=== PATIENT | female | born 1950 | race African-American/Black ===

== ENCOUNTER 2016-11-10 15:19 | Inpatient (IN) | payer MEDICARE, OTHER ==
[~2016-11-10] VITALS: Ht 167.6 cm; Wt 77.6 kg
[~2016-11-10 15:19] MED LIST: AMIO200T PO; ASPI-482 PO; DOCU-27 PO; ESCI20TA10 PO; HYDR25TA9 PO; LEVO50TA5 PO; METO25TA9 PO; SIMV20TA3 PO; WARF2TAB7 PO
[2016-11-10] MEDS ORDERED: DIPHTH,PERTUSS(ACELL),TET TOX 0.5 ML DISP.SYRIN. VAX IM ONE (16:00)
[2016-11-10 16:13] LABS: BASO % 1 % (0-3); EOS % 2 % (0-3); HEMATOCRIT 34.7 % (36.0-47.0); HEMOGLOBIN 11.3 g/dL (12.0-15.5); LYMPH # 1.7 x10^3/uL (1.0-4.8); LYMPH % 46 % (24-48); MEAN CORPUSCULAR HEMOGLOBIN 32 pg (25-35); MEAN CORPUSCULAR HGB CONC 33 g/dL (31-37); MEAN CORPUSCULAR VOLUME 98 fL (79-100); MONO % 12 % (0-9); NEUT % 39 % (31-73); PLATELET COUNT 146 x10^3/uL (140-400); RED BLOOD COUNT 3.56 x10^6/uL (3.50-5.40); WHITE BLOOD COUNT 3.6 x10^3/uL (4.0-11.0)
[2016-11-10 16:22] LABS: INR 2.5 (0.8-1.1); PROTHROMBIN TIME PATIENT 25.2 SEC (11.7-14.0)
--- NOTE | 2016-11-10 16:34 | RAD ---
Clinical Indication: Fall, hitting head on concrete. Headache Technique: Study is dated November 10, 2016. CT images of the head were obtained from the skull base to the vertex without IV contrast. Comparison is from April 27, 2016. One or more of the following individualized dose reduction techniques were utilized for this examination: 1. Automated exposure control 2. Adjustment of the mA and/or kV according to patient size 3. Use of iterative reconstruction technique Findings: There is diffuse, symmetric prominence of the ventricles and subarachnoid spaces consistent with age-related parenchymal volume loss. There are areas of scattered decreased attenuation in the supratentorial white matter. While nonspecific, findings are likely secondary to small vessel ischemic disease. There is no hemorrhage, extraaxial fluid collection, mass, or midline shift. There is no large vascular distribution infarct. The posterior fossa and brain stem are unremarkable. Orbits are normal. The visualized paranasal sinuses are clear. There is no skull fracture appreciated on bone level images. Impression: No acute intracranial findings. Brain parenchymal volume loss and probable small vessel ischemic disease.
[2016-11-10 16:42] LABS: CALCIUM 8.4 mg/dL (8.5-10.1); CREATININE 1.9 mg/dL (0.6-1.0); GFR 26.6; POTASSIUM 4.2 mmol/L (3.5-5.1)
[2016-11-10 16:48] LABS: ALBUMIN 3.3 g/dL (3.4-5.0); ALBUMIN/GLOBULIN RATIO 0.8 (1.0-1.7); TOTAL BILIRUBIN 0.4 mg/dL (0.2-1.0); TOTAL PROTEIN 7.3 g/dL (6.4-8.2)
--- NOTE | 2016-11-10 16:52 | RAD ---
Indication: Pain after fall today. Abrasion. Technique: 3 views of the left knee are submitted for review. No comparison is available. Findings: There is no fracture or dislocation. There is no soft tissue swelling. There is mild to moderate narrowing of the medial compartment with spurring. There are vascular calcifications. Impression: 1. Negative for fracture. 2. Medial compartment osteoarthritis.
[2016-11-10 17:00] LABS: BILIRUBIN,URINE NEGATIVE (NEG); GLUCOSE,URINE NEGATIVE (NEG); NITRITE,URINE NEGATIVE (NEG); PH,URINE 5.5; PROTEIN,URINE NEGATIVE (NEG-TRACE)
[2016-11-10 17:13] LABS: RBC,URINE 0 /HPF (0-2)
[2016-11-10 17:14] LABS: BACTERIA,URINE FEW /HPF (0-FEW); SQUAMOUS EPITHELIAL CELL,UR FEW /LPF; WBC,URINE OCC /HPF (0-4)
[2016-11-10] MEDS ORDERED: IV NORMAL SALINE 1000ML BAG 1,000 ML IV ONE (19:00)
[2016-11-10] MEDS ORDERED: ACETAMINOPHEN 500 MG TABLET PO ONE (19:00)
--- NOTE | 2016-11-10 19:21 | PHYS DOC ---
Past Medical History Past Medical History: Arrhythmia, CAD, High Cholesterol, Hypertension, Hypothyroid, Hepatitis, Renal Failure, Other Additional Past Medical Histor: mitral valve prolapse,code blue in this ED, LIVER PROBLEM Past Surgical History: Coronary Bypass Surgery, Other Additional Past Surgical Histo: mitral valve replacement, left foot, thyroid surgery Alcohol Use: None Drug Use: None Adult General Chief Complaint Chief Complaint: LACERATION/AVULSION HPI HPI Patient is a 66 year old female who comes to the ED after a dizzy spell and a fall. Patient states she was leaving a [employer] restaurant with family when she had a dizzy spell and fell, she does not believe that she passed out, she did hit her head and also skinned her left knee. Patient does take a blood thinner. She states that she hit her head on the cement and also skinned her knee on the cement. She has chronic pain in that left knee and has had an injection in a before, it doesn't seem much worse than usual to her. Patient says she has had some dizziness off and on for about a week maybe. She has not had any new medications. She has not felt bad otherwise, no GI symptoms, no fever, no cough or chest pain. Last tetanus is unknown Review of Systems Review of Systems Constitutional: Denies fever or chills [] Eyes: She was seen by the eye doctor recently for a problem with her right eye, not sure what it was but something to do with blood and her retina HENT: Denies nasal congestion or sore throat [] Respiratory: Denies cough or shortness of breath [] Cardiovascular: Denies chest pain GI: Denies abdominal pain, nausea, vomiting, bloody stools or diarrhea [] : Denies dysuria or hematuria [] Musculoskeletal: Denies back pain or joint pain [] Integument: Denies rash or skin lesions [] Neurologic: Denies headache, focal weakness or sensory changes [] Current Medications Current Medications Current Medications Medications (Trade) Dose Ordered Sig/Johnnie Start Time Stop Time Status Last Admin Dose Admin Acetaminophen 1000 mg 1,000 mg 1X ONCE 11/10/16 19:00 11/10/16 19:01 DC 11/10/16 19:00 1,000 MG Diphtheria/ Tetanus/Acell Pertussis (Boostrix) 0.5 ml ONCE ONCE 11/10/16 16:00 11/10/16 16:01 DC 11/10/16 16:52 0.5 ML Sodium Chloride (Iv Sodium Chloride 0.9% 1000ml Bag) 1,000 ml @ 100 mls/hr 1X ONCE 11/10/16 19:00 11/11/16 04:59 11/10/16 20:28 100 MLS/HR Allergies Allergies Allergies Coded Allergies Type Severity Reaction Last Updated Verified codeine Allergy Intermediate rash 10/17/14 No iodine Allergy Intermediate Hives, Itching 10/17/14 No Physical Exam Physical Exam Constitutional: Well developed, well nourished, no acute distress, non-toxic appearance. Alert, mentating normally. HENT: Normocephalic, bilateral external ears normal, oropharynx moist, no oral exudates, nose normal. Left forehead small hematoma with a small linear abrasion overlying it. Head and face otherwise without trauma Eyes: conjunctiva normal, no discharge. [] Neck: Normal range of motion, no stridor. [] Cardiovascular:Heart rate regular rhythm, no murmur [] Lungs & Thorax: Bilateral breath sounds clear to auscultation [] Abdomen: Bowel sounds normal, soft, no tenderness, no masses, no pulsatile masses. [] Skin: Warm, dry, no erythema, no rash. [] Extremities: No tenderness, no cyanosis, no clubbing, ROM intact, no edema. Left knee has a 1 cm abrasion just below the patella with a flap of skin avulsed , no laceration, it is superficial. No bony tenderness. No knee effusion. Neurologic: Alert and oriented X 3, normal motor function, normal sensory function, no focal deficits noted. [] Current Patient Data Vital Signs Vital Signs Date Time Temp Pulse Resp B/P Pulse Ox O2 Delivery O2 Flow Rate FiO2 11/10/16 19:01 22 22 155/73 92 Nasal Cannula 3 11/10/16 15:26 97.4 97.4 Lab Values Laboratory Tests Test 11/10/16 16:00 11/10/16 16:45 White Blood Count 3.6x10^3/uL (4.0-11.0) L Red Blood Count 3.56x10^6/uL (3.50-5.40) Hemoglobin 11.3g/dL (12.0-15.5) L Hematocrit 34.7% (36.0-47.0) L Mean Corpuscular Volume 98fL (79-100) Mean Corpuscular Hemoglobin 32pg (25-35) Mean Corpuscular Hemoglobin Concent 33g/dL (31-37) Red Cell Distribution Width 15.0% (11.5-14.5) H Platelet Count 146x10^3/uL (140-400) Neutrophils (%) (Auto) 39% (31-73) Lymphocytes (%) (Auto) 46% (24-48) Monocytes (%) (Auto) 12% (0-9) H Eosinophils (%) (Auto) 2% (0-3) Basophils (%) (Auto) 1% (0-3) Neutrophils # (Auto) 1.4x10^3uL (1.8-7.7) L Lymphocytes # (Auto) 1.7x10^3/uL (1.0-4.8) Monocytes # (Auto) 0.4x10^3/uL (0.0-1.1) Eosinophils # (Auto) 0.1x10^3/uL (0.0-0.7) Basophils # (Auto) 0.0x10^3/uL (0.0-0.2) Prothrombin Time 25.2SEC (11.7-14.0) H Prothrombin Time INR 2.5 (0.8-1.1) H Sodium Level 145mmol/L (136-145) Potassium Level 4.2mmol/L (3.5-5.1) Chloride Level 109mmol/L (98-107) H Carbon Dioxide Level 27mmol/L (21-32) Anion Gap 9 (6-14) Blood Urea Nitrogen 28mg/dL (7-20) H Creatinine 1.9mg/dL (0.6-1.0) H Estimated GFR (Cockcroft-Gault) 26.6 BUN/Creatinine Ratio 15 (6-20) Glucose Level 158mg/dL (70-99) H Calcium Level 8.4mg/dL (8.5-10.1) L Total Bilirubin 0.4mg/dL (0.2-1.0) Aspartate Amino Transferase (AST) 78U/L (15-37) H Alanine Aminotransferase (ALT) 51U/L (14-59) Alkaline Phosphatase 63U/L (46-116) Total Protein 7.3g/dL (6.4-8.2) Albumin 3.3g/dL (3.4-5.0) L Albumin/Globulin Ratio 0.8 (1.0-1.7) L Urine Collection Type Unknown Urine Color Yellow Urine Clarity Clear Urine pH 5.5 Urine Specific [place] 1.015 Urine Protein Negativemg/dL (NEG-TRACE) Urine Glucose (UA) Negativemg/dL (NEG) Urine Ketones (Stick) Negativemg/dL (NEG) Urine Blood Negative (NEG) Urine Nitrite Negative (NEG) Urine Bilirubin Negative (NEG) Urine Urobilinogen Dipstick 1.0mg/dL (0.2 mg/dL) Urine Leukocyte Esterase Negative (NEG) Urine RBC 0/HPF (0-2) Urine WBC Occ/HPF (0-4) Urine Squamous Epithelial Cells Few/LPF Urine Bacteria Few/HPF (0-FEW) Urine Hyaline Casts Many/HPF Urine Mucus Mod/LPF Laboratory Tests 11/10/16 16:00 Laboratory Tests 11/10/16 16:00 EKG EKG 12-lead EKG read by me. Sinus rhythm. Heart rate 60. There are no acute ST or T wave changes indicative of ischemia or infarction. No STEMI. 1609 [] Radiology/Procedures Radiology/Procedures CT scan of the head read by the radiologist negative for acute findings. [] Procedure: Laceration repair by me Left for head 1 cm linear superficial laceration/abrasion was cleaned and was approximated and repaired with Dermabond. Good approximation and hemostasis was achieved. Left knee skin avulsion/abrasion was cleaned and skin flap was glued with Dermabond. Good hemostasis which achieved. Course & Med Decision Making Course & Med Decision Making Pertinent Labs and Imaging studies reviewed. (See chart for details) Labs consistent with some mild dehydration. The patient does report that she is on a water pill. I wonder if this could be related to some of her recent complaints of dizziness. The patient had a fall with a head injury from the dizziness, I feel that it would be safest to admit her to the hospital for some gentle IV rehydration and reevaluate her labs and symptoms. The patient is agreeable to that suggestion. I discussed the case with Dr. Aparicio, [facility], who will admit the patient. I wrote bridge orders. [] Dragon Disclaimer Dragon Disclaimer This electronic medical record was generated, in whole or in part, using a voice recognition dictation system. Departure Departure Impression: Primary Impression: Dehydration Additional Impression: Head injury Disposition: 09 ADMITTED INPATIENT Admitting Physician: Other Condition: STABLE Referrals: CECIL ZAMORA MD (PCP) Problem Qualifiers ALFREDO YOON MD Nov 10, 2016 19:21
[2016-11-10 20:25] VITALS: BP 138/77
[2016-11-10] MEDS ORDERED: WARF2TAB7 PO (21:16)
[2016-11-10] MEDS ORDERED: WARF3TAB7 PO ×2 (21:16)
[2016-11-10] MEDS ORDERED: ZOLP10TA PO (21:16)
[2016-11-10] MEDS: ZOLPIDEM 5 MG TABLET. PO PRN (22:47)
[2016-11-10 23:15] VITALS: BP 136/85
--- NOTE | 2016-11-10 23:32 | HP ---
ADMIT DATE: 11/10/2016 CHIEF COMPLAINT: Presyncope. HISTORY OF PRESENT ILLNESS: The patient is a 66-year-old, woman, with past medical history of CAD, arrhythmia, status post a mitral valve replacement, who presented to the hospital after an episode of loss of consciousness. She relates that she was feeling dizzy and lightheaded when she was walking out of a [place] restaurant where she and her had lunch. She grabbed at the rail and reached for her with her other hand. Next thing she remembers is she was on the ground. On her return, she struck her head as well as her hip and her knee. She was bleeding from her head laceration and from her knee. Her left groin was quite painful as well. In the Emergency Room, films were obtained. X-rays of the knee did not show any bony injury. Brain CT without any contrast did not show any acute intracranial findings, but did show evidence of small vessel ischemic disease. Labs showed elevated BUN and creatinine and the patient was admitted for cardiac workup as well as correction of dehydration. PAST MEDICAL HISTORY: CAD, heart valve repair ? mitral valve, hypertension, hypothyroidism, depression, history of rheumatic fever, osteoarthritis, status post knee arthroscopy. She is also status post thyroidectomy, cholecystectomy, and hemorrhoidectomy. FAMILY HISTORY: CAD in mother and father, as well as hypertension and diabetes in siblings. SOCIAL HISTORY: The patient is , lives with her . No toxic habits. ALLERGIES: CODEINE AND IODINE. MEDICATIONS: MAR reconciled with home medications. REVIEW OF SYSTEMS: Positive as per HPI. Main concern currently is her left groin pain. PHYSICAL EXAMINATION: VITAL SIGNS: Today show a blood pressure of 138/77, heart rate of 60, respiratory rate at 20, she is afebrile. GENERAL: This is a 66-year-old, woman, alert and oriented, in no acute distress. HEENT: Showed superficial bruising with skin scraping over her left frontal area. Oral mucosa is pink and moist. NECK: Supple. LUNGS: Clear to auscultation bilaterally. HEART: Regular rate and rhythm. ABDOMEN: Positive bowel sounds. Soft, nontender. EXTREMITIES: Show no edema. Skin abrasion below the left patella. Pain to palpation in the left groin. SKIN: Warm, soft, and dry otherwise. LABORATORY DATA: CBC with a WBC of 3.6, hemoglobin 11.3, MCV of 98, platelets of 146. Chemistries with a BUN and creatinine of 28 and 1.9, slightly above her previous baseline. Electrolytes essentially within normal. Glucose at 158. LFTs with an AST at 78, her chronic level. Urine negative for infectious signs. Troponin not obtained. Imaging of the head showed small vessel ischemic disease, no acute process. Left knee x-ray without any significant findings except for arthritis. ASSESSMENT AND PLAN: The patient is a 66-year-old, woman, with some heart history as well as osteoarthritis, who had a syncopal event earlier today. Question arrhythmia versus dehydration. We will admit her and monitor on tele. Cardiology will be consulted. I will give her gentle fluid hydration. For pain which is bothering her in her groin, we will obtain x-rays of her pelvis and hip. She is able to move her leg and there is no rotation or abduction abnormality noted. Nevertheless, fracture should be ruled out. Glucose is slightly elevated today. We will obtain further fingerstick blood glucoses. A hemoglobin A1c can be obtained should there be any suspicion for diabetes. We will continue all her home medications including Lexapro for depression, Synthroid, as well as warfarin for her artificial mitral valve. SUNDAR GOULD MD DR: SHARON/nts JOB#: [id number] / [id number] MICHELLE
[2016-11-11 03:22] VITALS: BP 126/77
[2016-11-11 04:16] LABS: CALCIUM 7.9 mg/dL (8.5-10.1); CREATININE 1.5 mg/dL (0.6-1.0); GFR 42.3; POTASSIUM 4.4 mmol/L (3.5-5.1)
[2016-11-11 04:27] LABS: INR 2.8 (0.8-1.1); PROTHROMBIN TIME PATIENT 28.1 SEC (11.7-14.0)
[2016-11-11] MEDS: LEVOTHYROXINE 50 MCG TABLET PO SCH (05:34)
[2016-11-11] MEDS: ACETAMINOPHEN 325 MG TABLET. PO PRN ×2 (05:35→14:53)
--- NOTE | 2016-11-11 06:07 | EKG ---
[facility] [address] [place] [address] Test Date: 2016-11-10 Test Time: 16:09:12 Pat Name: FERNANDO BECK Department: Room: Gender: F Digital Editor: : 1950 Requested By: ALFREDO YOON Order Number: [id number] Reading MD: Measurements Intervals [place] Rate: 60 P: -72 MS: 72 QRS: -20 QRSD: 98 T: 66 QT: 546 QTc: 552 Interpretive Statements SUPRAVENTRICULAR RHYTHM LEFTWARD AXIS QRS(T) CONTOUR ABNORMALITY CONSISTENT WITH SEPTAL INFARCT AGE UNDETERMINED T ABNORMALITY IN ANTERIOR LEADS RI6.01 Unconfirmed report No previous ECG available for comparison
[2016-11-11 07:00] VITALS: BP 149/72
[2016-11-11] MEDS: ESCITALOPRAM 10 MG TABLET. PO SCH (09:51)
[2016-11-11] MEDS: DOCUSATE SODIUM 100 MG CAPSULE PO SCH ×2 (09:51→20:38)
[2016-11-11] MEDS: ASPIRIN ENTERIC COATED 81 MG TABLET.DR. PO SCH (09:51)
[2016-11-11] MEDS: AMIODARONE HCL 200 MG TABLET PO SCH (09:52)
--- NOTE | 2016-11-11 10:44 | PDOC ---
PROGRESS NOTES Chief Complaint Chief Complaint 1. SYncope/near syncope 2. CAD, heart valve repair ( mitral valve), hypertension, hypothyroidism, depression, history of rheumatic fever, osteoarthritis, status post knee arthroscopy. 3.status post thyroidectomy, cholecystectomy, and hemorrhoidectomy. History of Present Illness History of Present Illness Weak SOre on the chest and left knee and left side of head which she hit (no fxs) Creatinine down to 1.5 from 1,.9 Rest of labs ok VS ok INR at goal PLAN: CHeck orthostatics Add PT/OT Await cards Keep tele COnt coumadin, goal 2.5-3.5 (cards Dr. Shea) Vitals Vitals Vital Signs Date Time Temp Pulse Resp B/P Pulse Ox O2 Delivery O2 Flow Rate FiO2 11/11/16 09:52 64 149/72 11/11/16 07:50 Room Air 11/11/16 07:00 98.1 18 95 98.1 11/10/16 19:01 3 Physical Exam Lungs: Clear Labs LABS Laboratory Tests Test 11/10/16 16:00 11/10/16 16:45 11/11/16 03:30 White Blood Count 3.6x10^3/uL (4.0-11.0) Red Blood Count 3.56x10^6/uL (3.50-5.40) Hemoglobin 11.3g/dL (12.0-15.5) Hematocrit 34.7% (36.0-47.0) Mean Corpuscular Volume 98fL (79-100) Mean Corpuscular Hemoglobin 32pg (25-35) Mean Corpuscular Hemoglobin Concent 33g/dL (31-37) Red Cell Distribution Width 15.0% (11.5-14.5) Platelet Count 146x10^3/uL (140-400) Neutrophils (%) (Auto) 39% (31-73) Lymphocytes (%) (Auto) 46% (24-48) Monocytes (%) (Auto) 12% (0-9) Eosinophils (%) (Auto) 2% (0-3) Basophils (%) (Auto) 1% (0-3) Neutrophils # (Auto) 1.4x10^3uL (1.8-7.7) Lymphocytes # (Auto) 1.7x10^3/uL (1.0-4.8) Monocytes # (Auto) 0.4x10^3/uL (0.0-1.1) Eosinophils # (Auto) 0.1x10^3/uL (0.0-0.7) Basophils # (Auto) 0.0x10^3/uL (0.0-0.2) Prothrombin Time 25.2SEC (11.7-14.0) 28.1SEC (11.7-14.0) Prothromb Time International Ratio 2.5 (0.8-1.1) 2.8 (0.8-1.1) Sodium Level 145mmol/L (136-145) 146mmol/L (136-145) Potassium Level 4.2mmol/L (3.5-5.1) 4.4mmol/L (3.5-5.1) Chloride Level 109mmol/L (98-107) 112mmol/L (98-107) Carbon Dioxide Level 27mmol/L (21-32) 28mmol/L (21-32) Anion Gap 9 (6-14) 6 (6-14) Blood Urea Nitrogen 28mg/dL (7-20) 28mg/dL (7-20) Creatinine 1.9mg/dL (0.6-1.0) 1.5mg/dL (0.6-1.0) Estimated GFR (Cockcroft-Gault) 26.6 42.3 BUN/Creatinine Ratio 15 (6-20) Glucose Level 158mg/dL (70-99) 109mg/dL (70-99) Calcium Level 8.4mg/dL (8.5-10.1) 7.9mg/dL (8.5-10.1) Total Bilirubin 0.4mg/dL (0.2-1.0) Aspartate Amino Transf (AST/SGOT) 78U/L (15-37) Alanine Aminotransferase (ALT/SGPT) 51U/L (14-59) Alkaline Phosphatase 63U/L (46-116) Total Protein 7.3g/dL (6.4-8.2) Albumin 3.3g/dL (3.4-5.0) Albumin/Globulin Ratio 0.8 (1.0-1.7) Urine Collection Type Unknown Urine Color Yellow Urine Clarity Clear Urine pH 5.5 Urine Specific [place] 1.015 Urine Protein Negativemg/dL (NEG-TRACE) Urine Glucose (UA) Negativemg/dL (NEG) Urine Ketones (Stick) Negativemg/dL (NEG) Urine Blood Negative (NEG) Urine Nitrite Negative (NEG) Urine Bilirubin Negative (NEG) Urine Urobilinogen Dipstick 1.0mg/dL (0.2 mg/dL) Urine Leukocyte Esterase Negative (NEG) Urine RBC 0/HPF (0-2) Urine WBC Occ/HPF (0-4) Urine Squamous Epithelial Cells Few/LPF Urine Bacteria Few/HPF (0-FEW) Urine Hyaline Casts Many/HPF Urine Mucus Mod/LPF Review of Systems Review of Systems weak, sore in chest, left knee and left head (bump) Assessment and Plan Assessmemt and Plan Problems Medical Problems: (1) Dehydration Status: Acute (2) Head injury Status: Acute Problems: Comment Review of Relevant I have reviewed the following items sherman (where applicable) has been applied. Labs Laboratory Tests Test 11/10/16 16:00 11/10/16 16:45 11/11/16 03:30 White Blood Count 3.6x10^3/uL (4.0-11.0) Red Blood Count 3.56x10^6/uL (3.50-5.40) Hemoglobin 11.3g/dL (12.0-15.5) Hematocrit 34.7% (36.0-47.0) Mean Corpuscular Volume 98fL (79-100) Mean Corpuscular Hemoglobin 32pg (25-35) Mean Corpuscular Hemoglobin Concent 33g/dL (31-37) Red Cell Distribution Width 15.0% (11.5-14.5) Platelet Count 146x10^3/uL (140-400) Neutrophils (%) (Auto) 39% (31-73) Lymphocytes (%) (Auto) 46% (24-48) Monocytes (%) (Auto) 12% (0-9) Eosinophils (%) (Auto) 2% (0-3) Basophils (%) (Auto) 1% (0-3) Neutrophils # (Auto) 1.4x10^3uL (1.8-7.7) Lymphocytes # (Auto) 1.7x10^3/uL (1.0-4.8) Monocytes # (Auto) 0.4x10^3/uL (0.0-1.1) Eosinophils # (Auto) 0.1x10^3/uL (0.0-0.7) Basophils # (Auto) 0.0x10^3/uL (0.0-0.2) Prothrombin Time 25.2SEC (11.7-14.0) 28.1SEC (11.7-14.0) Prothromb Time International Ratio 2.5 (0.8-1.1) 2.8 (0.8-1.1) Sodium Level 145mmol/L (136-145) 146mmol/L (136-145) Potassium Level 4.2mmol/L (3.5-5.1) 4.4mmol/L (3.5-5.1) Chloride Level 109mmol/L (98-107) 112mmol/L (98-107) Carbon Dioxide Level 27mmol/L (21-32) 28mmol/L (21-32) Anion Gap 9 (6-14) 6 (6-14) Blood Urea Nitrogen 28mg/dL (7-20) 28mg/dL (7-20) Creatinine 1.9mg/dL (0.6-1.0) 1.5mg/dL (0.6-1.0) Estimated GFR (Cockcroft-Gault) 26.6 42.3 BUN/Creatinine Ratio 15 (6-20) Glucose Level 158mg/dL (70-99) 109mg/dL (70-99) Calcium Level 8.4mg/dL (8.5-10.1) 7.9mg/dL (8.5-10.1) Total Bilirubin 0.4mg/dL (0.2-1.0) Aspartate Amino Transf (AST/SGOT) 78U/L (15-37) Alanine Aminotransferase (ALT/SGPT) 51U/L (14-59) Alkaline Phosphatase 63U/L (46-116) Total Protein 7.3g/dL (6.4-8.2) Albumin 3.3g/dL (3.4-5.0) Albumin/Globulin Ratio 0.8 (1.0-1.7) Urine Collection Type Unknown Urine Color Yellow Urine Clarity Clear Urine pH 5.5 Urine Specific [place] 1.015 Urine Protein Negativemg/dL (NEG-TRACE) Urine Glucose (UA) Negativemg/dL (NEG) Urine Ketones (Stick) Negativemg/dL (NEG) Urine Blood Negative (NEG) Urine Nitrite Negative (NEG) Urine Bilirubin Negative (NEG) Urine Urobilinogen Dipstick 1.0mg/dL (0.2 mg/dL) Urine Leukocyte Esterase Negative (NEG) Urine RBC 0/HPF (0-2) Urine WBC Occ/HPF (0-4) Urine Squamous Epithelial Cells Few/LPF Urine Bacteria Few/HPF (0-FEW) Urine Hyaline Casts Many/HPF Urine Mucus Mod/LPF Laboratory Tests Test 11/10/16 16:00 11/10/16 16:45 11/11/16 03:30 White Blood Count 3.6x10^3/uL (4.0-11.0) Red Blood Count 3.56x10^6/uL (3.50-5.40) Hemoglobin 11.3g/dL (12.0-15.5) Hematocrit 34.7% (36.0-47.0) Mean Corpuscular Volume 98fL (79-100) Mean Corpuscular Hemoglobin 32pg (25-35) Mean Corpuscular Hemoglobin Concent 33g/dL (31-37) Red Cell Distribution Width 15.0% (11.5-14.5) Platelet Count 146x10^3/uL (140-400) Neutrophils (%) (Auto) 39% (31-73) Lymphocytes (%) (Auto) 46% (24-48) Monocytes (%) (Auto) 12% (0-9) Eosinophils (%) (Auto) 2% (0-3) Basophils (%) (Auto) 1% (0-3) Neutrophils # (Auto) 1.4x10^3uL (1.8-7.7) Lymphocytes # (Auto) 1.7x10^3/uL (1.0-4.8) Monocytes # (Auto) 0.4x10^3/uL (0.0-1.1) Eosinophils # (Auto) 0.1x10^3/uL (0.0-0.7) Basophils # (Auto) 0.0x10^3/uL (0.0-0.2) Prothrombin Time 25.2SEC (11.7-14.0) 28.1SEC (11.7-14.0) Prothromb Time International Ratio 2.5 (0.8-1.1) 2.8 (0.8-1.1) Sodium Level 145mmol/L (136-145) 146mmol/L (136-145) Potassium Level 4.2mmol/L (3.5-5.1) 4.4mmol/L (3.5-5.1) Chloride Level 109mmol/L (98-107) 112mmol/L (98-107) Carbon Dioxide Level 27mmol/L (21-32) 28mmol/L (21-32) Anion Gap 9 (6-14) 6 (6-14) Blood Urea Nitrogen 28mg/dL (7-20) 28mg/dL (7-20) Creatinine 1.9mg/dL (0.6-1.0) 1.5mg/dL (0.6-1.0) Estimated GFR (Cockcroft-Gault) 26.6 42.3 BUN/Creatinine Ratio 15 (6-20) Glucose Level 158mg/dL (70-99) 109mg/dL (70-99) Calcium Level 8.4mg/dL (8.5-10.1) 7.9mg/dL (8.5-10.1) Total Bilirubin 0.4mg/dL (0.2-1.0) Aspartate Amino Transf (AST/SGOT) 78U/L (15-37) Alanine Aminotransferase (ALT/SGPT) 51U/L (14-59) Alkaline Phosphatase 63U/L (46-116) Total Protein 7.3g/dL (6.4-8.2) Albumin 3.3g/dL (3.4-5.0) Albumin/Globulin Ratio 0.8 (1.0-1.7) Urine Collection Type Unknown Urine Color Yellow Urine Clarity Clear Urine pH 5.5 Urine Specific [place] 1.015 Urine Protein Negativemg/dL (NEG-TRACE) Urine Glucose (UA) Negativemg/dL (NEG) Urine Ketones (Stick) Negativemg/dL (NEG) Urine Blood Negative (NEG) Urine Nitrite Negative (NEG) Urine Bilirubin Negative (NEG) Urine Urobilinogen Dipstick 1.0mg/dL (0.2 mg/dL) Urine Leukocyte Esterase Negative (NEG) Urine RBC 0/HPF (0-2) Urine WBC Occ/HPF (0-4) Urine Squamous Epithelial Cells Few/LPF Urine Bacteria Few/HPF (0-FEW) Urine Hyaline Casts Many/HPF Urine Mucus Mod/LPF Medications Current Medications Diphtheria/ Tetanus/Acell Pertussis (Boostrix) 0.5 ml ONCE ONCE VAX IM Last administered on 11/10/16 16:52; Start 11/10/16 at 16:00; Stop 11/10/16 at 16:01 ; Status DC Acetaminophen 1000 mg 1,000 mg 1X ONCE PO Last administered on 11/10/16 19:00 ; Start 11/10/16 at 19:00; Stop 11/10/16 at 19:01; Status DC Sodium Chloride (Iv Sodium Chloride 0.9% 1000ml Bag) 1,000 ml @ 100 mls/hr 1X ONCE IV Last administered on 11/10/16 20:28; Start 11/10/16 at 19:00; Stop at 04:59; Status DC Amiodarone HCl (Cordarone) 200 mg DAILY PO Last administered on 11/11/16 09:52 ; Start 11/11/16 at 09:00 Aspirin (Ecotrin) 81 mg DAILY PO Last administered on 11/11/16 09:51; Start at 09:00 Docusate Sodium (Colace) 100 mg BID PO Last administered on 11/11/16 09:51; Start 11/11/16 at 09:00 Levothyroxine Sodium (Synthroid) 50 mcg DAILY07 PO Last administered on 05:34; Start 11/11/16 at 07:00 Atorvastatin Calcium (Lipitor) 10 mg QHS PO ; Start 11/11/16 at 21:00 Warfarin Sodium (Coumadin) 2 mg QSU PO ; Start 11/17/16 at 16:00 Warfarin Sodium (Coumadin) 2 mg QMWF PO ; Start 11/11/16 at 16:00 Warfarin Sodium (Coumadin) 3 mg QSA PO ; Start 11/16/16 at 16:00 Warfarin Sodium (Coumadin) 3 mg QTU PO ; Start 11/12/16 at 16:00 Zolpidem Tartrate (Ambien) 5 mg PRN QHS PRN PO INSOMNIA Last administered on 22:47; Start 11/10/16 at 22:30 Escitalopram Oxalate (Lexapro) 20 mg DAILY PO Last administered on 11/11/16 09 :51; Start 11/11/16 at 09:00 Warfarin Sodium (Coumadin Per Physician) 1 each PRN DAILY PRN MC SEE COMMENTS Last administered on 11/11/16 01:46; Start 11/10/16 at 22:30 Acetaminophen (Tylenol) 650 mg PRN Q6HRS PRN PO MILD PAIN / TEMP Last administered on 11/11/16 05:35; Start 11/11/16 at 03:00 Active Scripts Active Reported Ambien (Zolpidem Tartrate) 10 Mg Tablet 1 Tab PO QHS Warfarin Sodium 3 Mg Tablet 1 Tab PO QSA Warfarin Sodium 3 Mg Tablet 1 Tab PO QTU Warfarin Sodium 2 Mg Tablet 1 Tab PO QSU Warfarin Sodium 2 Mg Tablet 2 Mg PO QMWF Hydrochlorothiazide Tablet (Hydrochlorothiazide) 25 Mg Tablet 25 Mg PO Colace (Docusate Sodium) 100 Mg Capsule 100 Mg PO Lexapro (Escitalopram Oxalate) 20 Mg Tablet 20 Mg PO Aspir 81 (Aspirin) 81 Mg Tablet.dr 81 Mg PO Simvastatin 20 Mg Tablet 20 Mg PO Cordarone (Amiodarone Hcl) 200 Mg Tablet 200 Mg PO Levothyroxine Sodium 50 Mcg Tablet 50 Mcg PO Vitals/I & O Vital Sign - Last 24 Hours 11/10/16 11/10/16 11/10/16 11/10/16 15:26 16:10 16:48 19:01 Temp 97.4 97.4 Pulse 60 60 62 22 Resp 18 B/P 160/91 132/70 153/72 155/73 Pulse Ox 96 93 98 92 O2 Delivery Room Air Room Air Room Air Nasal Cannula O2 Flow Rate 3 11/10/16 11/10/16 11/10/16 11/11/16 20:25 23:15 23:29 03:22 Temp 98.2 97.7 98.1 98.2 97.7 98.1 Pulse 60 60 62 Resp 18 18 B/P 138/77 136/85 126/77 Pulse Ox 88 95 91 O2 Delivery Room Air Room Air Room Air Room Air 11/11/16 11/11/16 11/11/16 07:00 07:50 09:52 Temp 98.1 98.1 Pulse 64 64 Resp 18 B/P 149/72 149/72 Pulse Ox 95 O2 Delivery Room Air Room Air Intake and Output 11/10/16 11/10/16 11/11/16 15:00 23:00 07:00 Intake Total 1200 ml Balance 1200 ml BERNARDO MERRITT MD Nov 11, 2016 10:44
[2016-11-11] MEDS: IV NORMAL SALINE 1000ML BAG 1,000 ML IV SCH ×2 (10:45→22:40)
[2016-11-11 11:00] VITALS: BP 133/73
[2016-11-11] MEDS ORDERED: ACETAMINOPHEN/CODEINE 300/30MG TABLET PO PRN ×2 (14:30→14:45)
[2016-11-11] MEDS ORDERED: IBUPROFEN 400 MG TABLET. PO PRN (14:45)
[2016-11-11 15:00] VITALS: BP 155/86
--- NOTE | 2016-11-11 15:52 | PDOC2 ---
RAHEL KILLIAN SHIPPING AND RECEIVING ASSOCIATE 11/11/16 1552: CARDIAC CONSULT DATE OF CONSULT Date of Consult DATE: 11/11/16 TIME: 15:41 REASON FOR CONSULT Reason for Consult: Syncope EF 20% H/o VFIB REFERRING PHYSICIAN Referring Physician: Dr. Quiñonez SOURCE Source: Chart review, Patient HISTORY OF PRESENT ILLNESS HISTORY OF PRESENT ILLNESS This is a 66 yo female who presented secondary to episode of dizziness with subsequent fall. Patient reports she was walking out of [place] restaurant Friday after spiritism when she suddenly felt dizzy and fell to the ground, scraping her left forehead and knee. Unsure of LOC. Patient reports prior episode of near syncope last Friday. Was again walking when her legs felt " shaky and gave out" subsequently falling. Reports possible viral illness the week prior with decreased intake. Reports she hasn't felt completely well this past week and laid around most of the week. [place] dizzy, tired, and weak. Reports possible fevers and night sweats. Did feel better and went ahead and went to spiritism on Friday. PAST MEDICAL HISTORY Cardiovascular: HTN, Hyperlipidemia, Valve insufficiency (s/p MVR on coumadin therapy ), Other (NICM EF 15-20%) Pulmonary: No pertinent hx CENTRAL NERVOUS SYSTEM: Other (no pertinent hx ) GI: No pertinent hx Heme/Onc: No pertinent hx Hepatobiliary: No pertinent hx Psych: No pertinent hx Musculoskeletal: Osteoarthritis Rheumatologic: No pertinent hx Infectious disease: No pertinent hx ENT: No pertinent hx Renal/: Chronic renal insuff Endocrine: No pertinent hx, Hypothyroidism Dermatology: No pertinent hx PAST SURGICAL HISTORY Past Surgical History: Pacemaker, Other (MVR, partial thyroidectomy ) FAMILY HISTORY Family History: Coronary Artery Disease, Diabetes, Hypertension SOCIAL HISTORY Smoke: No ALCOHOL: none Drugs: None Lives: with Family CURRENT MEDICATIONS CURRENT MEDICATIONS Current Medications Medications (Trade) Dose Ordered Sig/Johnnie Route PRN Reason Start Time Stop Time Status Last Admin Dose Admin Diphtheria/ Tetanus/Acell Pertussis (Boostrix) 0.5 ml ONCE ONCE VAX IM 11/10/16 16:00 11/10/16 16:01 DC 11/10/16 16:52 Acetaminophen 1000 mg 1,000 mg 1X ONCE PO 11/10/16 19:00 11/10/16 19:01 DC 11/10/16 19:00 Sodium Chloride (Iv Sodium Chloride 0.9% 1000ml Bag) 1,000 ml @ 100 mls/hr 1X ONCE IV 11/10/16 19:00 11/11/16 04:59 DC 11/10/16 20:28 Amiodarone HCl (Cordarone) 200 mg DAILY PO 11/11/16 09:00 11/11/16 09:52 Aspirin (Ecotrin) 81 mg DAILY PO 11/11/16 09:00 11/11/16 09:51 Docusate Sodium (Colace) 100 mg BID PO 11/11/16 09:00 11/11/16 09:51 Levothyroxine Sodium (Synthroid) 50 mcg DAILY07 PO 11/11/16 07:00 11/11/16 05:34 Zolpidem Tartrate (Ambien) 5 mg PRN QHS PRN PO INSOMNIA 11/10/16 22:30 11/10/16 22:47 Escitalopram Oxalate (Lexapro) 20 mg DAILY PO 11/11/16 09:00 11/11/16 09:51 Warfarin Sodium (Coumadin Per Physician) 1 each PRN DAILY PRN MC SEE COMMENTS 11/10/16 22:30 11/11/16 13:18 Acetaminophen (Tylenol) 650 mg PRN Q6HRS PRN PO MILD PAIN / TEMP 11/11/16 03:00 11/11/16 14:53 ALLERGIES ALLERGIES: Coded Allergies: codeine (Unverified Allergy, Intermediate, rash, 10/17/14) iodine (Unverified Allergy, Intermediate, Hives, Itching, 10/17/14) ROS Review of System 14 point ROS conducted with pertinent positive noted above in HPI. PHYSICAL EXAM General: Alert, Oriented X3, Cooperative, No acute distress HEENT: Atraumatic, Mucous membr. moist/pink Lungs: Clear to auscultation, Normal air movement Heart: Regular rate, Normal S1, Normal S2, Other (mitral click ) Abdomen: Soft, No tenderness Extremities: No edema, Normal pulses Skin: No rashes, No breakdown, No significant lesion Neuro: Normal speech, Sensation intact Psych/Mental Status: Mental status NL, Mood NL MUSCULOSKELETAL: Osteoarthritic changes both hands VITALS VITALS Vital Signs Date Time Temp Pulse Resp B/P Pulse Ox O2 Delivery O2 Flow Rate FiO2 11/11/16 09:52 64 149/72 11/11/16 07:50 Room Air 11/11/16 07:00 98.1 18 95 98.1 11/10/16 19:01 3 LABS Lab: Laboratory Tests Test 11/10/16 16:00 11/10/16 16:45 11/11/16 03:30 White Blood Count 3.6x10^3/uL (4.0-11.0) Red Blood Count 3.56x10^6/uL (3.50-5.40) Hemoglobin 11.3g/dL (12.0-15.5) Hematocrit 34.7% (36.0-47.0) Mean Corpuscular Volume 98fL (79-100) Mean Corpuscular Hemoglobin 32pg (25-35) Mean Corpuscular Hemoglobin Concent 33g/dL (31-37) Red Cell Distribution Width 15.0% (11.5-14.5) Platelet Count 146x10^3/uL (140-400) Neutrophils (%) (Auto) 39% (31-73) Lymphocytes (%) (Auto) 46% (24-48) Monocytes (%) (Auto) 12% (0-9) Eosinophils (%) (Auto) 2% (0-3) Basophils (%) (Auto) 1% (0-3) Neutrophils # (Auto) 1.4x10^3uL (1.8-7.7) Lymphocytes # (Auto) 1.7x10^3/uL (1.0-4.8) Monocytes # (Auto) 0.4x10^3/uL (0.0-1.1) Eosinophils # (Auto) 0.1x10^3/uL (0.0-0.7) Basophils # (Auto) 0.0x10^3/uL (0.0-0.2) Prothrombin Time 25.2SEC (11.7-14.0) 28.1SEC (11.7-14.0) Prothromb Time International Ratio 2.5 (0.8-1.1) 2.8 (0.8-1.1) Sodium Level 145mmol/L (136-145) 146mmol/L (136-145) Potassium Level 4.2mmol/L (3.5-5.1) 4.4mmol/L (3.5-5.1) Chloride Level 109mmol/L (98-107) 112mmol/L (98-107) Carbon Dioxide Level 27mmol/L (21-32) 28mmol/L (21-32) Anion Gap 9 (6-14) 6 (6-14) Blood Urea Nitrogen 28mg/dL (7-20) 28mg/dL (7-20) Creatinine 1.9mg/dL (0.6-1.0) 1.5mg/dL (0.6-1.0) Estimated GFR (Cockcroft-Gault) 26.6 42.3 BUN/Creatinine Ratio 15 (6-20) Glucose Level 158mg/dL (70-99) 109mg/dL (70-99) Calcium Level 8.4mg/dL (8.5-10.1) 7.9mg/dL (8.5-10.1) Total Bilirubin 0.4mg/dL (0.2-1.0) Aspartate Amino Transf (AST/SGOT) 78U/L (15-37) Alanine Aminotransferase (ALT/SGPT) 51U/L (14-59) Alkaline Phosphatase 63U/L (46-116) Total Protein 7.3g/dL (6.4-8.2) Albumin 3.3g/dL (3.4-5.0) Albumin/Globulin Ratio 0.8 (1.0-1.7) Urine Collection Type Unknown Urine Color Yellow Urine Clarity Clear Urine pH 5.5 Urine Specific [place] 1.015 Urine Protein Negativemg/dL (NEG-TRACE) Urine Glucose (UA) Negativemg/dL (NEG) Urine Ketones (Stick) Negativemg/dL (NEG) Urine Blood Negative (NEG) Urine Nitrite Negative (NEG) Urine Bilirubin Negative (NEG) Urine Urobilinogen Dipstick 1.0mg/dL (0.2 mg/dL) Urine Leukocyte Esterase Negative (NEG) Urine RBC 0/HPF (0-2) Urine WBC Occ/HPF (0-4) Urine Squamous Epithelial Cells Few/LPF Urine Bacteria Few/HPF (0-FEW) Urine Hyaline Casts Many/HPF Urine Mucus Mod/LPF ECHOCARDIOGRAM ECHOCARDIOGRAM <Conclusion> The left ventricle is mildly dilated. The systolic function is severely impaired on a global basis. Estimated LV ejection fraction is 15 to 20%. There is no significant aortic valvular stenosis. There is trace to mild aortic regurgitation. There is a bioprosthetic mitral valve that appears to have normal function. There is moderate tricuspid regurgitation. The pulmonary valve is normal in structure and function. There is no pericardial effusion. DATE: 08/05/13 1457 HEART CATH HEART CATH Conclusion No significant CAD Origin of RCA from left cusp Normal looking mechanical StJude valve in mitral position Bilateral iliac stents with moderate to severe instent restenosis of right sided stent. Left patent Successful placement of temporary PM Recommendations Aggressive Medical Therapy Medical Therapy ICU support with HYpothermia protocol post cardiac arrest DATE: 08/05/13 1507 ASSESSMENT/PLAN ASSESSMENT/PLAN 1. Syncope 2. Chronic systolic HF; compensated 3. NICM EF 15-20% 4. h/o ventricular arrhythmia on Amio 5. [place] with CKD; dehydration 6. Hypertension 7. Hyperlipidemia 8. h/o rheumatic fever s/p MVR on Coumadin therapy Recommendations check echo to r/o cardiac anomaly/ assess LV function obtain cardiac records from Dr. Shea Interrogate [facility] device to identify possible arrhythmia contributing to syncopal event Continue Amiodarone for rhythm maintenance Pharmacy to manage Coumadin Problems: NEIL NAIR MD 11/12/16 1610: CARDIAC CONSULT ALLERGIES ALLERGIES: Coded Allergies: codeine (Unverified Allergy, Intermediate, rash, 10/17/14) iodine (Unverified Allergy, Intermediate, Hives, Itching, 10/17/14) ASSESSMENT/PLAN ASSESSMENT/PLAN Late entry for 11/11/2016. Patient seen and examined. Agree with her nurse practitioner. 66-year-old woman presenting with near syncope. Awaiting device interrogation. Normal cardiac exam. Awaiting a cardiogram. Low suspicion for cardiovascular etiology. Problems: RAHEL KILLIAN APRN Nov 11, 2016 15:52 NEIL NAIR MD Nov 12, 2016 16:10
[2016-11-11] MEDS ORDERED: WARFARIN 2 MG TABLET. PO SCH ×2 (16:00)
[2016-11-11 19:20] VITALS: BP 158/87
[2016-11-11] MEDS: ZOLPIDEM 5 MG TABLET. PO PRN (20:38)
[2016-11-11] MEDS: ATORVASTATIN CALCIUM 10 MG TABLET. PO SCH (20:38)
[2016-11-11] MEDS: OXYCODONE/APAP 5/325 TABLET. PO PRN (22:39)
[2016-11-11 23:05] VITALS: BP 166/87
[2016-11-12 03:32] VITALS: BP 151/86
[2016-11-12 05:29] LABS: INR 2.5 (0.8-1.1); PROTHROMBIN TIME PATIENT 25.9 SEC (11.7-14.0)
[2016-11-12 05:38] LABS: CALCIUM 8.3 mg/dL (8.5-10.1); CREATININE 1.1 mg/dL (0.6-1.0); GFR 60.5
--- NOTE | 2016-11-12 05:46 | ACF ---
Admission Forms Criteria DEHYDRATION Clinical Indications for Admission to Inpatient Care (Place 'X' for any and all applicable criteria): Admission is indicated for ANY ONE of the following (1)(2)(3)(4)(5): [X]I. Inpatient admission required rather than observation care (see Dehydration: Observation Care guideline as appropriate) because of ANY ONE of the following: [ ]a) Vomiting that is severe or persistent [ ]b) Severe electrolyte abnormalities requiring inpatient care [ ]c) Hemodynamic instability [ ]d) IV fluid to replace significant ongoing losses (greater than 3 L/m2 per day (10) (11) [ ]e) Parenteral nutrition regimen that must be implemented on inpatient basis [X]f) Other condition,treatment or monitoring requiring inpatient admission [ ]II. Serious cause for dehydration requiring acute hospitalization (eg, bowel obstruction, increased intracranial pressure, infectious cause) Extended stay beyond goal length of stay may be needed for(1)(3 )(4)(17): [ ]a) Chronic severe dehydration [ ]b) Persistent vital sign changes, severe electrolyte imbalance, or diagnosed cause of dehydration that requires continued hospitalization (eg, bowel obstruction, increased intracranial pressure) [ ]c) Older patients (65 years or older) [ ]d) Severe comorbid illness (eg, renal failure, heart failure, poorly controlled diabetes) The original [employer] content created by [employer] has been revised. The portions of the content which have been revised are identified through the use of italic text or in bold, and [facility] has neither reviewed nor approved the modified material. All other unmodified content is copyright [employer]. Please see references footnoted in the original [employer] edition 2016 Admission Criteria Met?: Yes [place] CORONEL Nov 12, 2016 05:46
[2016-11-12] MEDS: OXYCODONE/APAP 5/325 TABLET. PO PRN ×3 (06:20→20:26)
[2016-11-12] MEDS: LEVOTHYROXINE 50 MCG TABLET PO SCH (06:20)
[2016-11-12] MEDS: IV NORMAL SALINE 1000ML BAG 1,000 ML IV SCH ×2 (06:45→20:19)
[2016-11-12 07:00] VITALS: BP 125/69
[2016-11-12] MEDS: DOCUSATE SODIUM 100 MG CAPSULE PO SCH ×2 (09:25→20:19)
[2016-11-12] MEDS: ASPIRIN ENTERIC COATED 81 MG TABLET.DR. PO SCH (09:25)
[2016-11-12] MEDS: ESCITALOPRAM 10 MG TABLET. PO SCH (09:25)
[2016-11-12] MEDS: AMIODARONE HCL 200 MG TABLET PO SCH (09:25)
[2016-11-12 11:00] VITALS: BP 159/73
--- NOTE | 2016-11-12 12:34 | CARD ---
APPROVED REPORT EXAM: Two-dimensional and M-mode echocardiogram with Doppler and color Doppler. Other Information Quality : Good INDICATION Syncope Congestive Heart Failure Surgery/Intervention Status/Post Mitral Valve Replacement: Mechanical Type: [employer] Date: 2012 2D DIMENSIONS RVDd2.6 (2.9-3.5cm)Left Atrium(2D)4.7 (1.6-4.0cm) IVSd1.3 (0.7-1.1cm)Aortic Root(2D)3.1 (2.0-3.7cm) LVDd4.3 (3.9-5.9cm)LVOT Diameter1.8 (1.8-2.4cm) PWd1.3 (0.7-1.1cm)LVDs2.3 (2.5-4.0cm) FS (%) 27.5 %SV65.7 ml LVEF(%)55.0 (>50%) Aortic Valve AoV Peak Demetrio.156.4cm/sAoV VTI32.8cm AO Peak GR.9.8mmHgLVOT Peak Demetrio.147.0cm/s LVOT VTI 29.07cmAO Mean GR.5mmHg JUVENAL (VMAX)2.05li8IAT (VTI)2.26cm2 AI P 1/2 Emnd684xv Mitral Valve MV E Qzymybhv487.5cm/sMV DECEL [id number] MV A Qiticpkr18.3cm/sMV WFK50pb E/A Ratio1.7MVA (PHT)3.61cm2 TDI E/Lateral E'14.3E/Medial E'26.7 Tricuspid Valve TR P. Ztoggggg625vy/sRAP ZAZRRWZZ1lnLl TR Peak Gr.18chCzIKZD76myKw Pulmonary Vein S1 Vwerjode08.2cm/sD2 Jjvkqkpl24.0cm/s LEFT VENTRICLE The left ventricle is normal size. There is mild concentric left ventricular hypertrophy. Left ventri daja systolic function is low normal. The Ejection Fraction is 50-55%. There is normal LV segmental wa ll motion. Tissue Doppler imaging reveals moderate left ventricular diastolic dysfunction. RIGHT VENTRICLE The right ventricle is normal size. The right ventricular systolic function is normal. There is a pac emaker lead in the right ventricle. ATRIA The left atrium is mildly dilated. The right atrium size is normal. A pacemaker is seen in the right atrium consistent with history. The interatrial septum is intact with no evidence for an atrial septa l defect or patent foramen ovale as noted on 2-D or Doppler imaging. AORTIC VALVE The aortic valve is calcified but opens well. Doppler and Color Flow revealed mild to moderate aortic regurgitation. There is no significant aortic valvular stenosis. MITRAL VALVE There is no mitral valve stenosis. Doppler and Color-flow revealed mild mitral regurgitation. There i s a bi-leaflet ([employer]) mechanical prosthesis of the mitral valve. TRICUSPID VALVE The tricuspid valve is normal in structure and function. Doppler and Color Flow revealed mild tricusp id regurgitation. There is mild pulmonary hypertension. The PA pressure was estimated at 37 mmHg. The re is no tricuspid valve stenosis. PULMONIC VALVE The pulmonary valve is normal in structure and function. Doppler and Color Flow revealed no pulmonic valvular regurgitation. There is no pulmonic valvular stenosis. GREAT VESSELS The aortic root is normal in size. The ascending aorta is normal in size. The IVC is normal in size a nd collapses >50% with inspiration. PERICARDIAL EFFUSION There is no evidence of significant pericardial effusion. Critical Notification Critical Value: No <Conclusion> Left ventricle systolic function is low normal. The Ejection Fraction is 50-55%. There is normal LV segmental wall motion. Tissue Doppler imaging reveals moderate left ventricular diastolic dysfunction. There is a pacemaker lead in the right ventricle. The left atrium is mildly dilated. There is a bi-leaflet ([employer]) mechanical prosthesis of the mitral valve. Doppler and Color-flow revealed mild mitral regurgitation. Doppler and Color Flow revealed mild tricuspid regurgitation. There is mild pulmonary hypertension. T he PA pressure was estimated at 37 mmHg.
--- NOTE | 2016-11-12 12:57 | PDOC ---
PROGRESS NOTES Chief Complaint Chief Complaint 1. Syncope. fall 2. diffuse pain s/p fall 3. CAD, heart valve repair of mitral valve , hypertension, 4. hypothyroidism, depression, history of rheumatic fever, osteoarthritis, 5. status post thyroidectomy, cholecystectomy, History of Present Illness History of Present Illness Weakness and pain, diffuse pain from fall PT reported that she has "shuddering" movements when walking consult neuro for possible dystonia Creatinine down to 1.1 was 1.5 1.9 INR at goal Vitals Vitals Vital Signs Date Time Temp Pulse Resp B/P Pulse Ox O2 Delivery O2 Flow Rate FiO2 11/12/16 11:00 97.5 60 18 159/73 98 Room Air 97.5 Physical Exam General: Alert, Oriented X3, Cooperative, No acute distress Heart: Regular rate, Normal S1, Normal S2, No murmurs, Other (mitral click ) Lungs: Clear Abdomen: Normal bowel sounds, Soft, No tenderness Extremities: No clubbing, No edema, Normal pulses Skin: No rashes, No breakdown, No significant lesion Labs LABS Laboratory Tests Test 11/12/16 05:00 Prothrombin Time 25.9SEC (11.7-14.0) Prothromb Time International Ratio 2.5 (0.8-1.1) Sodium Level 145mmol/L (136-145) Potassium Level 4.0mmol/L (3.5-5.1) Chloride Level 112mmol/L (98-107) Carbon Dioxide Level 25mmol/L (21-32) Anion Gap 8 (6-14) Blood Urea Nitrogen 21mg/dL (7-20) Creatinine 1.1mg/dL (0.6-1.0) Estimated GFR (Cockcroft-Gault) 60.5 Glucose Level 86mg/dL (70-99) Calcium Level 8.3mg/dL (8.5-10.1) Review of Systems Review of Systems pain, weakness, poor PO intake Assessment and Plan Assessmemt and Plan Problems Medical Problems: (1) Dehydration Status: Acute (2) Head injury Status: Acute Problems: Comment Review of Relevant I have reviewed the following items sherman (where applicable) has been applied. Labs Laboratory Tests Test 11/10/16 16:00 11/10/16 16:45 11/11/16 03:30 11/12/16 05:00 White Blood Count 3.6x10^3/uL (4.0-11.0) Red Blood Count 3.56x10^6/uL (3.50-5.40) Hemoglobin 11.3g/dL (12.0-15.5) Hematocrit 34.7% (36.0-47.0) Mean Corpuscular Volume 98fL (79-100) Mean Corpuscular Hemoglobin 32pg (25-35) Mean Corpuscular Hemoglobin Concent 33g/dL (31-37) Red Cell Distribution Width 15.0% (11.5-14.5) Platelet Count 146x10^3/uL (140-400) Neutrophils (%) (Auto) 39% (31-73) Lymphocytes (%) (Auto) 46% (24-48) Monocytes (%) (Auto) 12% (0-9) Eosinophils (%) (Auto) 2% (0-3) Basophils (%) (Auto) 1% (0-3) Neutrophils # (Auto) 1.4x10^3uL (1.8-7.7) Lymphocytes # (Auto) 1.7x10^3/uL (1.0-4.8) Monocytes # (Auto) 0.4x10^3/uL (0.0-1.1) Eosinophils # (Auto) 0.1x10^3/uL (0.0-0.7) Basophils # (Auto) 0.0x10^3/uL (0.0-0.2) Prothrombin Time 25.2SEC (11.7-14.0) 28.1SEC (11.7-14.0) 25.9SEC (11.7-14.0) Prothromb Time International Ratio 2.5 (0.8-1.1) 2.8 (0.8-1.1) 2.5 (0.8-1.1) Sodium Level 145mmol/L (136-145) 146mmol/L (136-145) 145mmol/L (136-145) Potassium Level 4.2mmol/L (3.5-5.1) 4.4mmol/L (3.5-5.1) 4.0mmol/L (3.5-5.1) Chloride Level 109mmol/L (98-107) 112mmol/L (98-107) 112mmol/L (98-107) Carbon Dioxide Level 27mmol/L (21-32) 28mmol/L (21-32) 25mmol/L (21-32) Anion Gap 9 (6-14) 6 (6-14) 8 (6-14) Blood Urea Nitrogen 28mg/dL (7-20) 28mg/dL (7-20) 21mg/dL (7-20) Creatinine 1.9mg/dL (0.6-1.0) 1.5mg/dL (0.6-1.0) 1.1mg/dL (0.6-1.0) Estimated GFR (Cockcroft-Gault) 26.6 42.3 60.5 BUN/Creatinine Ratio 15 (6-20) Glucose Level 158mg/dL (70-99) 109mg/dL (70-99) 86mg/dL (70-99) Calcium Level 8.4mg/dL (8.5-10.1) 7.9mg/dL (8.5-10.1) 8.3mg/dL (8.5-10.1) Total Bilirubin 0.4mg/dL (0.2-1.0) Aspartate Amino Transf (AST/SGOT) 78U/L (15-37) Alanine Aminotransferase (ALT/SGPT) 51U/L (14-59) Alkaline Phosphatase 63U/L (46-116) Total Protein 7.3g/dL (6.4-8.2) Albumin 3.3g/dL (3.4-5.0) Albumin/Globulin Ratio 0.8 (1.0-1.7) Urine Collection Type Unknown Urine Color Yellow Urine Clarity Clear Urine pH 5.5 Urine Specific [place] 1.015 Urine Protein Negativemg/dL (NEG-TRACE) Urine Glucose (UA) Negativemg/dL (NEG) Urine Ketones (Stick) Negativemg/dL (NEG) Urine Blood Negative (NEG) Urine Nitrite Negative (NEG) Urine Bilirubin Negative (NEG) Urine Urobilinogen Dipstick 1.0mg/dL (0.2 mg/dL) Urine Leukocyte Esterase Negative (NEG) Urine RBC 0/HPF (0-2) Urine WBC Occ/HPF (0-4) Urine Squamous Epithelial Cells Few/LPF Urine Bacteria Few/HPF (0-FEW) Urine Hyaline Casts Many/HPF Urine Mucus Mod/LPF Thyroid Stimulating Hormone (TSH) 0.421uIU/mL (0.358-3.74) Laboratory Tests Test 11/12/16 05:00 Prothrombin Time 25.9SEC (11.7-14.0) Prothromb Time International Ratio 2.5 (0.8-1.1) Sodium Level 145mmol/L (136-145) Potassium Level 4.0mmol/L (3.5-5.1) Chloride Level 112mmol/L (98-107) Carbon Dioxide Level 25mmol/L (21-32) Anion Gap 8 (6-14) Blood Urea Nitrogen 21mg/dL (7-20) Creatinine 1.1mg/dL (0.6-1.0) Estimated GFR (Cockcroft-Gault) 60.5 Glucose Level 86mg/dL (70-99) Calcium Level 8.3mg/dL (8.5-10.1) Medications Current Medications Diphtheria/ Tetanus/Acell Pertussis (Boostrix) 0.5 ml ONCE ONCE VAX IM Last administered on 11/10/16 16:52; Start 11/10/16 at 16:00; Stop 11/10/16 at 16:01 ; Status DC Acetaminophen 1000 mg 1,000 mg 1X ONCE PO Last administered on 11/10/16 19:00 ; Start 11/10/16 at 19:00; Stop 11/10/16 at 19:01; Status DC Sodium Chloride (Iv Sodium Chloride 0.9% 1000ml Bag) 1,000 ml @ 100 mls/hr 1X ONCE IV Last administered on 11/10/16 20:28; Start 11/10/16 at 19:00; Stop at 04:59; Status DC Amiodarone HCl (Cordarone) 200 mg DAILY PO Last administered on 11/12/16 09:25 ; Start 11/11/16 at 09:00 Aspirin (Ecotrin) 81 mg DAILY PO Last administered on 11/12/16 09:25; Start at 09:00 Docusate Sodium (Colace) 100 mg BID PO Last administered on 11/12/16 09:25; Start 11/11/16 at 09:00 Levothyroxine Sodium (Synthroid) 50 mcg DAILY07 PO Last administered on 06:20; Start 11/11/16 at 07:00 Atorvastatin Calcium (Lipitor) 10 mg QHS PO Last administered on 11/11/16 20: 38; Start 11/11/16 at 21:00 Warfarin Sodium (Coumadin) 2 mg QSU PO ; Start 11/17/16 at 16:00; Stop 11/17/16 at 16:00; Status DC Warfarin Sodium (Coumadin) 2 mg QMWF PO ; Start 11/11/16 at 16:00; Stop at 16:00; Status DC Warfarin Sodium (Coumadin) 3 mg QSA PO ; Start 11/16/16 at 16:00; Stop 11/16/16 at 16:00; Status DC Warfarin Sodium (Coumadin) 3 mg QTU PO ; Start 11/12/16 at 16:00; Stop 11/12/16 at 16:00; Status DC Zolpidem Tartrate (Ambien) 5 mg PRN QHS PRN PO INSOMNIA Last administered on 20:38; Start 11/10/16 at 22:30 Escitalopram Oxalate (Lexapro) 20 mg DAILY PO Last administered on 11/12/16 09 :25; Start 11/11/16 at 09:00 Warfarin Sodium (Coumadin Per Physician) 1 each PRN DAILY PRN MC SEE COMMENTS Last administered on 11/12/16 12:43; Start 11/10/16 at 22:30 Acetaminophen 650 mg 650 mg PRN Q6HRS PRN PO MILD PAIN / TEMP Last administered on 11/11/16 14:53; Start 11/11/16 at 03:00 Sodium Chloride (Iv Sodium Chloride 0.9% 1000ml Bag) 1,000 ml @ 100 mls/hr Q10H IV Last administered on 11/11/16 22:40; Start 11/11/16 at 10:45 Warfarin Sodium (Coumadin) 3 mg TuSa@16 PO ; Start 11/12/16 at 16:00 Warfarin Sodium (Coumadin) 2 mg SuMoWeThFr@16 PO Last administered on 17:47; Start 11/11/16 at 16:00 Acetaminophen/ Codeine Phosphate (Tylenol #3) 1 tab PRN Q6HRS PRN PO PAIN; Start 11/11/16 at 14:30; Status Cancel Acetaminophen/ Codeine Phosphate (Tylenol #3) 1 tab PRN Q6HRS PRN PO PAIN; Start 11/11/16 at 14:45; Stop 11/11/16 at 14:45; Status DC Ibuprofen (Motrin) 400 mg PRN Q6HRS PRN PO INFLAMMATION Last administered on 09:31; Start 11/11/16 at 14:45 Oxycodone/ Acetaminophen (Percocet 5/325) 1 tab PRN Q6HRS PRN PO SEVERE PAIN Last administered on 11/12/16 06:20; Start 11/11/16 at 22:00 Active Scripts Active Reported Ambien (Zolpidem Tartrate) 10 Mg Tablet 1 Tab PO QHS Warfarin Sodium 3 Mg Tablet 1 Tab PO QSA Warfarin Sodium 3 Mg Tablet 1 Tab PO QTU Warfarin Sodium 2 Mg Tablet 1 Tab PO QSU Warfarin Sodium 2 Mg Tablet 2 Mg PO QMWF Hydrochlorothiazide Tablet (Hydrochlorothiazide) 25 Mg Tablet 25 Mg PO Colace (Docusate Sodium) 100 Mg Capsule 100 Mg PO Lexapro (Escitalopram Oxalate) 20 Mg Tablet 20 Mg PO Aspir 81 (Aspirin) 81 Mg Tablet.dr 81 Mg PO Simvastatin 20 Mg Tablet 20 Mg PO Cordarone (Amiodarone Hcl) 200 Mg Tablet 200 Mg PO Levothyroxine Sodium 50 Mcg Tablet 50 Mcg PO Vitals/I & O Vital Sign - Last 24 Hours 11/11/16 11/11/16 11/11/16 11/11/16 15:00 19:20 20:30 22:39 Temp 98.5 98.7 98.5 98.7 Pulse 60 60 Resp 18 18 18 B/P 155/86 158/87 Pulse Ox 99 95 O2 Delivery Room Air Room Air Room Air Room Air 11/11/16 11/12/16 11/12/16 11/12/16 23:05 03:32 06:20 07:00 Temp 97.9 97.9 98.9 97.9 97.9 98.9 Pulse 60 60 73 Resp 18 18 18 18 B/P 166/87 151/86 125/69 Pulse Ox 97 95 91 O2 Delivery Room Air Room Air Room Air Room Air 11/12/16 11/12/16 11/12/16 3/21/17 07:30 07:50 08:00 09:25 Pulse 73 Resp 18 B/P 125/69 O2 Delivery Room Air Room Air Room Air 11/12/16 11:00 Temp 97.5 97.5 Pulse 60 Resp 18 B/P 159/73 Pulse Ox 98 O2 Delivery Room Air Intake and Output 11/11/16 11/11/16 11/12/16 15:00 23:00 07:00 Intake Total 456 ml Balance 456 ml DADA GREENWOOD MD Nov 12, 2016 12:57
[2016-11-12] MEDS: MORPHINE ER 15 MG TABLET.ER PO SCH ×2 (13:03→20:19)
[2016-11-12] MEDS: POLYETHYLENE GLYCOL 3350 17 GM PACKET. PO SCH (14:00)
--- NOTE | 2016-11-12 14:44 | PDOC ---
[employer] 11/12/16 1444: CARDIO Progress Notes Date and Time Date of Service 11/12/2016 Time of Evaluation 1435 Subjective Subjective: No Chest Pain, No Palpitations, No Dizziness, Other (CASTRO with showering) Vitals Vitals Vital Signs Date Time Temp Pulse Resp B/P Pulse Ox O2 Delivery O2 Flow Rate FiO2 11/12/16 13:03 20 Room Air 11/12/16 11:00 97.5 60 159/73 98 97.5 Weight Weight [ ] Input and Output Intake and Output Intake and Output 11/12/16 07:00 Intake Total 456 ml Balance 456 ml IV Total 456 ml # Voids 6 Laboratory Labs Laboratory Tests Test 11/12/16 05:00 Prothrombin Time 25.9SEC (11.7-14.0) Prothromb Time International Ratio 2.5 (0.8-1.1) Sodium Level 145mmol/L (136-145) Potassium Level 4.0mmol/L (3.5-5.1) Chloride Level 112mmol/L (98-107) Carbon Dioxide Level 25mmol/L (21-32) Anion Gap 8 (6-14) Blood Urea Nitrogen 21mg/dL (7-20) Creatinine 1.1mg/dL (0.6-1.0) Estimated GFR (Cockcroft-Gault) 60.5 Glucose Level 86mg/dL (70-99) Calcium Level 8.3mg/dL (8.5-10.1) Physical Exam HEENT: Neck Supple W Full Motion Chest: Symmetric LUNGS: Clear to Auscultation Heart: S1S2, RRR, other (left pectoral ICD implant site healed; tele: SR; occasional V-pacing) Abdomen: Soft N/T Extremities: No Edema Neurology: alert, oriented, follow commands Assessment Assessment 1. Syncope 2. Chronic systolic HF; compensated 3. NICM EF 15-20%; recovered to 50-55% on echo completed earlier 4. h/o ventricular arrhythmia on Amio 5. [place] with CKD; dehydration 6. Hypertension 7. Hyperlipidemia 8. h/o rheumatic fever s/p MVR on Coumadin therapy - MVR with appropriate function on echo Plan Plan 1. ICD interrogation pending 2. continue anticoagulation for MVR -- cautions use of NSAIDS as anticoagulated INR 2.5 today 3. ? CHF meds -- hold diuretics given recent dehydration and syncopal event ? BB hold ACEI with recent renal function NEIL NAIR MD 11/12/16 1616: CARDIO Progress Notes Plan Plan Patient seen and examined. Agree with above nurse practitioner note. No acute events overnight. Normal echocardiogram with preserved LV systolic function. Mechanical mitral valve in place without any significant evidence of stenosis. Cardiac exam is unremarkable except for mechanical mitral valve click. Normal device interrogation today. Supportive care from a cardiac standpoint. Follow up with primary rail layer. SHERLEY BELL APRN Nov 12, 2016 14:44 NEIL NAIR MD Nov 12, 2016 16:16
--- NOTE | 2016-11-12 14:55 | PDOC2 ---
NEUROLOGY CONSULT Date of Admission Date of Admission DATE: 11/12/16 TIME: 14:49 Reason for Consult Reason for Consult: Tremors Referring Physician Referring Physician: Dr. Naqvi PCP: Dr. Sanchez Source Source: Caregiver, Chart review, Patient History of Present Illness History of Present Illness The patient is a 66-year-old right-handed female admitted for presyncope whom I am asked to see regarding tremors. She says it when she walks her legs become tremulous. She has also noticed some tremors in the arms. Symptoms started several months ago. 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 There is no history of stroke, seizure, or head injury. She has not figured out any inciting or mitigating features. Past Medical History Cardiovascular: CAD, HTN, Hyperlipidemia, Other ( ventricular fibrillation cardiac arrest 2012) Musculoskeletal: Osteoarthritis ( she gets injections in her knees) Endocrine: Hypothyroidism Past Surgical History Past Surgical History: Other (Mitral valve replacement) Family History Family History: No pertinent hx ( negative for tremor) Social History Social History , no tobacco, alcohol, drugs, or excessive caffeine Current Medications Current Medications Current Medications Diphtheria/ Tetanus/Acell Pertussis (Boostrix) 0.5 ml ONCE ONCE VAX IM Last administered on 11/10/16 16:52; Start 11/10/16 at 16:00; Stop 11/10/16 at 16:01 ; Status DC Acetaminophen 1000 mg 1,000 mg 1X ONCE PO Last administered on 11/10/16 19:00 ; Start 11/10/16 at 19:00; Stop 11/10/16 at 19:01; Status DC Sodium Chloride (Iv Sodium Chloride 0.9% 1000ml Bag) 1,000 ml @ 100 mls/hr 1X ONCE IV Last administered on 11/10/16 20:28; Start 11/10/16 at 19:00; Stop at 04:59; Status DC Amiodarone HCl (Cordarone) 200 mg DAILY PO Last administered on 11/12/16 09:25 ; Start 11/11/16 at 09:00 Aspirin (Ecotrin) 81 mg DAILY PO Last administered on 11/12/16 09:25; Start at 09:00 Docusate Sodium (Colace) 100 mg BID PO Last administered on 11/12/16 09:25; Start 11/11/16 at 09:00 Levothyroxine Sodium (Synthroid) 50 mcg DAILY07 PO Last administered on 06:20; Start 11/11/16 at 07:00 Atorvastatin Calcium (Lipitor) 10 mg QHS PO Last administered on 11/11/16 20: 38; Start 11/11/16 at 21:00 Warfarin Sodium (Coumadin) 2 mg QSU PO ; Start 11/17/16 at 16:00; Stop 11/17/16 at 16:00; Status DC Warfarin Sodium (Coumadin) 2 mg QMWF PO ; Start 11/11/16 at 16:00; Stop at 16:00; Status DC Warfarin Sodium (Coumadin) 3 mg QSA PO ; Start 11/16/16 at 16:00; Stop 11/16/16 at 16:00; Status DC Warfarin Sodium (Coumadin) 3 mg QTU PO ; Start 11/12/16 at 16:00; Stop 11/12/16 at 16:00; Status DC Zolpidem Tartrate (Ambien) 5 mg PRN QHS PRN PO INSOMNIA Last administered on 20:38; Start 11/10/16 at 22:30 Escitalopram Oxalate (Lexapro) 20 mg DAILY PO Last administered on 11/12/16 09 :25; Start 11/11/16 at 09:00 Warfarin Sodium (Coumadin Per Physician) 1 each PRN DAILY PRN MC SEE COMMENTS Last administered on 11/12/16 12:43; Start 11/10/16 at 22:30 Acetaminophen 650 mg 650 mg PRN Q6HRS PRN PO MILD PAIN / TEMP Last administered on 11/11/16 14:53; Start 11/11/16 at 03:00 Sodium Chloride (Iv Sodium Chloride 0.9% 1000ml Bag) 1,000 ml @ 100 mls/hr Q10H IV Last administered on 11/11/16 22:40; Start 11/11/16 at 10:45 Warfarin Sodium (Coumadin) 3 mg TuSa@16 PO ; Start 11/12/16 at 16:00 Warfarin Sodium (Coumadin) 2 mg SuMoWeThFr@16 PO Last administered on 17:47; Start 11/11/16 at 16:00 Acetaminophen/ Codeine Phosphate (Tylenol #3) 1 tab PRN Q6HRS PRN PO PAIN; Start 11/11/16 at 14:30; Status Cancel Acetaminophen/ Codeine Phosphate (Tylenol #3) 1 tab PRN Q6HRS PRN PO PAIN; Start 11/11/16 at 14:45; Stop 11/11/16 at 14:45; Status DC Ibuprofen (Motrin) 400 mg PRN Q6HRS PRN PO INFLAMMATION Last administered on 09:31; Start 11/11/16 at 14:45 Oxycodone/ Acetaminophen (Percocet 5/325) 1 tab PRN Q6HRS PRN PO SEVERE PAIN Last administered on 11/12/16 13:03; Start 11/11/16 at 22:00 Morphine Sulfate (Ms Contin) 15 mg BID PO Last administered on 11/12/16 13:03 ; Start 11/12/16 at 13:00 Polyethylene Glycol (miraLAX PACKET) 17 gm DAILY PO ; Start 11/12/16 at 14:00 Active Scripts Active Reported Ambien (Zolpidem Tartrate) 10 Mg Tablet 1 Tab PO QHS Warfarin Sodium 3 Mg Tablet 1 Tab PO QSA Warfarin Sodium 3 Mg Tablet 1 Tab PO QTU Warfarin Sodium 2 Mg Tablet 1 Tab PO QSU Warfarin Sodium 2 Mg Tablet 2 Mg PO QMWF Hydrochlorothiazide Tablet (Hydrochlorothiazide) 25 Mg Tablet 25 Mg PO Colace (Docusate Sodium) 100 Mg Capsule 100 Mg PO Lexapro (Escitalopram Oxalate) 20 Mg Tablet 20 Mg PO Aspir 81 (Aspirin) 81 Mg Tablet.dr 81 Mg PO Simvastatin 20 Mg Tablet 20 Mg PO Cordarone (Amiodarone Hcl) 200 Mg Tablet 200 Mg PO Levothyroxine Sodium 50 Mcg Tablet 50 Mcg PO Allergies Allergies: Coded Allergies: codeine (Unverified Allergy, Intermediate, rash, 10/17/14) iodine (Unverified Allergy, Intermediate, Hives, Itching, 10/17/14) ROS Review of System Positive for fevers, chills, dyspnea, negative for weight loss, chest pain, indigestion, hematochezia, melena, dysuria. Full 14-point review systems is negative. Physical Exam Physical Examination PHYSICAL EXAMINATION: Vital signs: see above. General appearance is normal and in no acute distress. HEENT: Normocephalic and nontraumatic. Eyes, nose, ears, and throat are unremarkable. Neck is supple. No lymphadenopathy. No bruits are heard over the carotid artery. No crepitus. NEUROLOGICAL EXAMINATION: Mental Status Examination: Alert. Oriented to time, place, and person. Answers questions and follows commends. Pupils are equal round and reactive to light and accommodation. Extraocular movements are intact. Visual field exam shows no defect on the direct confrontation. No motor or sensory deficits on the facial exam. Uvula in the midline and the soft palate elevated symmetrically. No deviation of the tongue to any direction. Gross hearing is normal. Shoulder shrug normal. Muscle tone is normal. Muscle strength is 5. Deep tendon reflexes are 2+ all around. Plantar reflex is with flexion response bilaterally. Upnsmp-eo-hzmy test performance is accurate. She has postural tremor as well as orthostatic tremor. Alternative movements are accurate. Romberg test is negative. Gait is arthritic Sensory exam shows no deficits. No cerebellar signs are elicited. Vitals VITALS Vital Signs Date Time Temp Pulse Resp B/P Pulse Ox O2 Delivery O2 Flow Rate FiO2 11/12/16 13:03 20 Room Air 11/12/16 11:00 97.5 60 159/73 98 97.5 Labs Labs Laboratory Tests Test 11/10/16 16:00 11/10/16 16:45 11/11/16 03:30 11/12/16 05:00 White Blood Count 3.6x10^3/uL (4.0-11.0) Red Blood Count 3.56x10^6/uL (3.50-5.40) Hemoglobin 11.3g/dL (12.0-15.5) Hematocrit 34.7% (36.0-47.0) Mean Corpuscular Volume 98fL (79-100) Mean Corpuscular Hemoglobin 32pg (25-35) Mean Corpuscular Hemoglobin Concent 33g/dL (31-37) Red Cell Distribution Width 15.0% (11.5-14.5) Platelet Count 146x10^3/uL (140-400) Neutrophils (%) (Auto) 39% (31-73) Lymphocytes (%) (Auto) 46% (24-48) Monocytes (%) (Auto) 12% (0-9) Eosinophils (%) (Auto) 2% (0-3) Basophils (%) (Auto) 1% (0-3) Neutrophils # (Auto) 1.4x10^3uL (1.8-7.7) Lymphocytes # (Auto) 1.7x10^3/uL (1.0-4.8) Monocytes # (Auto) 0.4x10^3/uL (0.0-1.1) Eosinophils # (Auto) 0.1x10^3/uL (0.0-0.7) Basophils # (Auto) 0.0x10^3/uL (0.0-0.2) Prothrombin Time 25.2SEC (11.7-14.0) 28.1SEC (11.7-14.0) 25.9SEC (11.7-14.0) Prothromb Time International Ratio 2.5 (0.8-1.1) 2.8 (0.8-1.1) 2.5 (0.8-1.1) Sodium Level 145mmol/L (136-145) 146mmol/L (136-145) 145mmol/L (136-145) Potassium Level 4.2mmol/L (3.5-5.1) 4.4mmol/L (3.5-5.1) 4.0mmol/L (3.5-5.1) Chloride Level 109mmol/L (98-107) 112mmol/L (98-107) 112mmol/L (98-107) Carbon Dioxide Level 27mmol/L (21-32) 28mmol/L (21-32) 25mmol/L (21-32) Anion Gap 9 (6-14) 6 (6-14) 8 (6-14) Blood Urea Nitrogen 28mg/dL (7-20) 28mg/dL (7-20) 21mg/dL (7-20) Creatinine 1.9mg/dL (0.6-1.0) 1.5mg/dL (0.6-1.0) 1.1mg/dL (0.6-1.0) Estimated GFR (Cockcroft-Gault) 26.6 42.3 60.5 BUN/Creatinine Ratio 15 (6-20) Glucose Level 158mg/dL (70-99) 109mg/dL (70-99) 86mg/dL (70-99) Calcium Level 8.4mg/dL (8.5-10.1) 7.9mg/dL (8.5-10.1) 8.3mg/dL (8.5-10.1) Total Bilirubin 0.4mg/dL (0.2-1.0) Aspartate Amino Transf (AST/SGOT) 78U/L (15-37) Alanine Aminotransferase (ALT/SGPT) 51U/L (14-59) Alkaline Phosphatase 63U/L (46-116) Total Protein 7.3g/dL (6.4-8.2) Albumin 3.3g/dL (3.4-5.0) Albumin/Globulin Ratio 0.8 (1.0-1.7) Urine Collection Type Unknown Urine Color Yellow Urine Clarity Clear Urine pH 5.5 Urine Specific [place] 1.015 Urine Protein Negativemg/dL (NEG-TRACE) Urine Glucose (UA) Negativemg/dL (NEG) Urine Ketones (Stick) Negativemg/dL (NEG) Urine Blood Negative (NEG) Urine Nitrite Negative (NEG) Urine Bilirubin Negative (NEG) Urine Urobilinogen Dipstick 1.0mg/dL (0.2 mg/dL) Urine Leukocyte Esterase Negative (NEG) Urine RBC 0/HPF (0-2) Urine WBC Occ/HPF (0-4) Urine Squamous Epithelial Cells Few/LPF Urine Bacteria Few/HPF (0-FEW) Urine Hyaline Casts Many/HPF Urine Mucus Mod/LPF Thyroid Stimulating Hormone (TSH) 0.421uIU/mL (0.358-3.74) Laboratory Tests Test 11/12/16 05:00 Prothrombin Time 25.9SEC (11.7-14.0) Prothromb Time International Ratio 2.5 (0.8-1.1) Sodium Level 145mmol/L (136-145) Potassium Level 4.0mmol/L (3.5-5.1) Chloride Level 112mmol/L (98-107) Carbon Dioxide Level 25mmol/L (21-32) Anion Gap 8 (6-14) Blood Urea Nitrogen 21mg/dL (7-20) Creatinine 1.1mg/dL (0.6-1.0) Estimated GFR (Cockcroft-Gault) 60.5 Glucose Level 86mg/dL (70-99) Calcium Level 8.3mg/dL (8.5-10.1) Images Images Head CT, 11/10: Findings: There is diffuse, symmetric prominence of the ventricles and subarachnoid spaces consistent with age-related parenchymal volume loss. There are areas of scattered decreased attenuation in the supratentorial white matter. While nonspecific, findings are likely secondary to small vessel ischemic disease. There is no hemorrhage, extraaxial fluid collection, mass, or midline shift. There is no large vascular distribution infarct. The posterior fossa and brain stem are unremarkable. Orbits are normal. The visualized paranasal sinuses are clear. There is no skull fracture appreciated on bone level images. Impression: No acute intracranial findings. Brain parenchymal volume loss and probable small vessel ischemic disease. Assessment/Plan Assessment/Plan Impression: Essential tremor with orthostatic comer, no sign of parkinsonism or dystonia. No myelopathy, radiculopathy, or neuropathy. History of anoxic encephalopathy over 3 years ago. Recommendations: Trial of low-dose primidone, side effects discussed. I discussed the nature of the diagnosis with the patient and her . Limit caffeine intake. Thank you for letting me help with the patient's care. DALE MARTINEZ MD Nov 12, 2016 14:55
[2016-11-12 14:58] VITALS: BP 154/84
[2016-11-12] MEDS: PRIMIDONE 50 MG TABLET PO SCH (15:59)
[2016-11-12] MEDS ORDERED: WARFARIN 3 MG TABLET. PO SCH ×2 (16:00)
[2016-11-12 19:15] VITALS: BP 131/71
[2016-11-12] MEDS: ATORVASTATIN CALCIUM 10 MG TABLET. PO SCH (20:19)
[2016-11-12] MEDS: ZOLPIDEM 5 MG TABLET. PO PRN (20:26)
[2016-11-12 23:13] VITALS: BP 148/83
[2016-11-13 03:05] VITALS: BP 136/78
[2016-11-13] MEDS: OXYCODONE/APAP 5/325 TABLET. PO PRN ×2 (04:57→12:04)
[2016-11-13 05:14] LABS: INR 2.8 (0.8-1.1); PROTHROMBIN TIME PATIENT 28.2 SEC (11.7-14.0)
[2016-11-13] MEDS: LEVOTHYROXINE 50 MCG TABLET PO SCH (05:59)
[2016-11-13 07:00] VITALS: BP 136/74
[2016-11-13] MEDS: DOCUSATE SODIUM 100 MG CAPSULE PO SCH (08:53)
[2016-11-13] MEDS: PRIMIDONE 50 MG TABLET PO SCH (08:53)
[2016-11-13] MEDS: ASPIRIN ENTERIC COATED 81 MG TABLET.DR. PO SCH (08:53)
[2016-11-13] MEDS: ESCITALOPRAM 10 MG TABLET. PO SCH (08:53)
[2016-11-13] MEDS: IV NORMAL SALINE 1000ML BAG 1,000 ML IV SCH (08:54)
[2016-11-13] MEDS: AMIODARONE HCL 200 MG TABLET PO SCH (08:54)
[2016-11-13] MEDS: POLYETHYLENE GLYCOL 3350 17 GM PACKET. PO SCH (08:54)
[2016-11-13] MEDS: MORPHINE ER 15 MG TABLET.ER PO SCH (08:54)
[2016-11-13] MEDS ORDERED: OXYC1TAB7 PO (10:05)
--- NOTE | 2016-11-13 10:06 | PDOC ---
PROGRESS NOTES Chief Complaint Chief Complaint 1. Syncope. fall 2. diffuse pain s/p fall 3. CAD, heart valve repair of mitral valve , hypertension, 4. hypothyroidism, depression, history of rheumatic fever, osteoarthritis, 5. status post thyroidectomy, cholecystectomy, 6. vasomotor nephropathy was POA, dehydration may have precipitated vasovagal syncope History of Present Illness History of Present Illness Weakness and pain, diffuse pain from fall PT reported that she has "shuddering" movements when walking consult neuro for possible dystonia Creatinine down to 1.1 was 1.5 1.9 INR at goal Vitals Vitals Vital Signs Date Time Temp Pulse Resp B/P Pulse Ox O2 Delivery O2 Flow Rate FiO2 11/13/16 08:54 18 Room Air 11/13/16 08:54 58 136/74 11/13/16 07:00 98.1 95 98.1 11/13/16 05:57 3.0 Physical Exam General: Alert, Oriented X3, Cooperative, No acute distress Heart: Regular rate, Normal S1, Normal S2, No murmurs, Other (mitral click ) Lungs: Clear Abdomen: Normal bowel sounds, Soft, No tenderness Extremities: No clubbing, No edema, Normal pulses Skin: No rashes, No breakdown, No significant lesion Labs LABS Laboratory Tests Test 11/13/16 03:36 Prothrombin Time 28.2SEC (11.7-14.0) Prothromb Time International Ratio 2.8 (0.8-1.1) Review of Systems Review of Systems feels better try to DC home today Assessment and Plan Assessmemt and Plan Problems Medical Problems: (1) Dehydration Status: Acute (2) Head injury Status: Acute Problems: Comment Review of Relevant I have reviewed the following items sherman (where applicable) has been applied. Labs Laboratory Tests Test 11/12/16 05:00 11/13/16 03:36 Prothrombin Time 25.9SEC (11.7-14.0) 28.2SEC (11.7-14.0) Prothromb Time International Ratio 2.5 (0.8-1.1) 2.8 (0.8-1.1) Sodium Level 145mmol/L (136-145) Potassium Level 4.0mmol/L (3.5-5.1) Chloride Level 112mmol/L (98-107) Carbon Dioxide Level 25mmol/L (21-32) Anion Gap 8 (6-14) Blood Urea Nitrogen 21mg/dL (7-20) Creatinine 1.1mg/dL (0.6-1.0) Estimated GFR (Cockcroft-Gault) 60.5 Glucose Level 86mg/dL (70-99) Calcium Level 8.3mg/dL (8.5-10.1) Laboratory Tests Test 11/13/16 03:36 Prothrombin Time 28.2SEC (11.7-14.0) Prothromb Time International Ratio 2.8 (0.8-1.1) Medications Current Medications Diphtheria/ Tetanus/Acell Pertussis (Boostrix) 0.5 ml ONCE ONCE VAX IM Last administered on 11/10/16 16:52; Start 11/10/16 at 16:00; Stop 11/10/16 at 16:01 ; Status DC Acetaminophen 1000 mg 1,000 mg 1X ONCE PO Last administered on 11/10/16 19:00 ; Start 11/10/16 at 19:00; Stop 11/10/16 at 19:01; Status DC Sodium Chloride (Iv Sodium Chloride 0.9% 1000ml Bag) 1,000 ml @ 100 mls/hr 1X ONCE IV Last administered on 11/10/16 20:28; Start 11/10/16 at 19:00; Stop at 04:59; Status DC Amiodarone HCl (Cordarone) 200 mg DAILY PO Last administered on 11/13/16 08:54 ; Start 11/11/16 at 09:00 Aspirin (Ecotrin) 81 mg DAILY PO Last administered on 11/13/16 08:53; Start at 09:00 Docusate Sodium (Colace) 100 mg BID PO Last administered on 11/13/16 08:53; Start 11/11/16 at 09:00 Levothyroxine Sodium (Synthroid) 50 mcg DAILY07 PO Last administered on 05:59; Start 11/11/16 at 07:00 Atorvastatin Calcium (Lipitor) 10 mg QHS PO Last administered on 11/12/16 20: 19; Start 11/11/16 at 21:00 Warfarin Sodium (Coumadin) 2 mg QSU PO ; Start 11/17/16 at 16:00; Stop 11/17/16 at 16:00; Status DC Warfarin Sodium (Coumadin) 2 mg QMWF PO ; Start 11/11/16 at 16:00; Stop at 16:00; Status DC Warfarin Sodium (Coumadin) 3 mg QSA PO ; Start 11/16/16 at 16:00; Stop 11/16/16 at 16:00; Status DC Warfarin Sodium (Coumadin) 3 mg QTU PO ; Start 11/12/16 at 16:00; Stop 11/12/16 at 16:00; Status DC Zolpidem Tartrate (Ambien) 5 mg PRN QHS PRN PO INSOMNIA Last administered on 20:26; Start 11/10/16 at 22:30 Escitalopram Oxalate (Lexapro) 20 mg DAILY PO Last administered on 11/13/16 08 :53; Start 11/11/16 at 09:00 Warfarin Sodium (Coumadin Per Physician) 1 each PRN DAILY PRN MC SEE COMMENTS Last administered on 11/12/16 12:43; Start 11/10/16 at 22:30 Acetaminophen 650 mg 650 mg PRN Q6HRS PRN PO MILD PAIN / TEMP Last administered on 11/11/16 14:53; Start 11/11/16 at 03:00 Sodium Chloride (Iv Sodium Chloride 0.9% 1000ml Bag) 1,000 ml @ 100 mls/hr Q10H IV Last administered on 11/13/16 08:54; Start 11/11/16 at 10:45; Stop at 09:55; Status DC Warfarin Sodium (Coumadin) 3 mg TuSa@16 PO Last administered on 11/12/16 16:03 ; Start 11/12/16 at 16:00 Warfarin Sodium (Coumadin) 2 mg SuMoWeThFr@16 PO Last administered on 17:47; Start 11/11/16 at 16:00 Acetaminophen/ Codeine Phosphate (Tylenol #3) 1 tab PRN Q6HRS PRN PO PAIN; Start 11/11/16 at 14:30; Status Cancel Acetaminophen/ Codeine Phosphate (Tylenol #3) 1 tab PRN Q6HRS PRN PO PAIN; Start 11/11/16 at 14:45; Stop 11/11/16 at 14:45; Status DC Ibuprofen (Motrin) 400 mg PRN Q6HRS PRN PO INFLAMMATION Last administered on 09:31; Start 11/11/16 at 14:45 Oxycodone/ Acetaminophen (Percocet 5/325) 1 tab PRN Q6HRS PRN PO SEVERE PAIN Last administered on 11/13/16 04:57; Start 11/11/16 at 22:00 Morphine Sulfate (Ms Contin) 15 mg BID PO Last administered on 11/13/16 08:54 ; Start 11/12/16 at 13:00 Polyethylene Glycol (miraLAX PACKET) 17 gm DAILY PO Last administered on 08:54; Start 11/12/16 at 14:00 Primidone (Mysoline) 50 mg DAILY PO Last administered on 11/13/16 08:53; Start 11/12/16 at 15:00 Active Scripts Active Oxycodone-Acetaminophen 5-325 (Oxycodone Hcl/Acetaminophen) 1 Each Tablet 1 Tab PO PRN Q4HRS PRN Reported Ambien (Zolpidem Tartrate) 10 Mg Tablet 1 Tab PO QHS Warfarin Sodium 3 Mg Tablet 1 Tab PO QSA Warfarin Sodium 3 Mg Tablet 1 Tab PO QTU Warfarin Sodium 2 Mg Tablet 1 Tab PO QSU Warfarin Sodium 2 Mg Tablet 2 Mg PO QMWF Hydrochlorothiazide Tablet (Hydrochlorothiazide) 25 Mg Tablet 25 Mg PO Colace (Docusate Sodium) 100 Mg Capsule 100 Mg PO Lexapro (Escitalopram Oxalate) 20 Mg Tablet 20 Mg PO Aspir 81 (Aspirin) 81 Mg Tablet.dr 81 Mg PO Simvastatin 20 Mg Tablet 20 Mg PO Cordarone (Amiodarone Hcl) 200 Mg Tablet 200 Mg PO Levothyroxine Sodium 50 Mcg Tablet 50 Mcg PO Vitals/I & O Vital Sign - Last 24 Hours 11/12/16 11/12/16 11/12/16 11/12/16 11:00 13:03 13:03 14:05 Temp 97.5 97.5 Pulse 60 Resp 18 20 20 16 B/P 159/73 Pulse Ox 98 O2 Delivery Room Air Room Air Room Air 11/12/16 11/12/16 11/12/16 11/12/16 14:58 17:29 19:15 20:00 Temp 98.0 98.4 98.0 98.4 Pulse 59 60 Resp 18 16 18 B/P 154/84 131/71 Pulse Ox 98 93 O2 Delivery Room Air Room Air Room Air Room Air 11/12/16 11/12/16 11/12/16 11/13/16 20:19 20:26 23:13 03:05 Temp 98.3 98.3 98.3 98.3 Pulse 65 62 Resp 18 18 B/P 148/83 136/78 Pulse Ox 93 93 91 93 O2 Delivery Room Air Room Air Room Air Room Air O2 Flow Rate 3.0 3.0 11/13/16 11/13/16 11/13/16 11/13/16 04:57 05:57 07:00 07:38 Temp 98.1 98.1 Pulse 58 Resp 18 B/P 136/74 Pulse Ox 93 93 95 O2 Delivery Room Air Room Air Room Air Room Air O2 Flow Rate 3.0 3.0 11/13/16 11/13/16 08:54 08:54 Pulse 58 Resp 18 B/P 136/74 O2 Delivery Room Air Intake and Output 11/12/16 11/12/16 11/13/16 15:00 23:00 07:00 Intake Total 2770 ml 700 ml Balance 2770 ml 700 ml DADA GREENWOOD MD Nov 13, 2016 10:06
[2016-11-13 11:00] VITALS: BP 152/80
--- NOTE | 2016-11-13 11:11 | PDOC ---
PROGRESS NOTES Assessment Problems Medical Problems: (1) Dehydration Status: Acute (2) Head injury Status: Acute Essential tremor with orthostatic comer, no sign of parkinsonism or dystonia. No myelopathy, radiculopathy, or neuropathy. History of anoxic encephalopathy over 3 years ago. Plan Increase primidone, bid today, tid tomorrow Subjective Tremor better, no side effects Objective Vital Signs Date Time Temp Pulse Resp B/P Pulse Ox O2 Delivery O2 Flow Rate FiO2 11/13/16 08:54 18 Room Air 11/13/16 08:54 58 136/74 11/13/16 07:00 98.1 95 98.1 11/13/16 05:57 3.0 Intake and Output 11/13/16 07:00 Intake Total 3470 ml Balance 3470 ml Intake Oral 2470 ml IV Total 1000 ml # Voids 10 PHYSICAL EXAM Alert. Oriented to time, place and person. PERRL. EOMI. CN: no focal findings. Muscle tone: normal. Muscle strength: 5/5 DTR: 2+ Plantar reflex: flexor Gait: not examined in bed. Sensory exam: no abnormal findings. No cerebellar signs elicited. Postural tremor improved Review of Relevant I have reviewed the following items sherman (where applicable) has been applied. Labs Laboratory Tests Test 11/12/16 05:00 11/13/16 03:36 Prothrombin Time 25.9SEC (11.7-14.0) 28.2SEC (11.7-14.0) Prothromb Time International Ratio 2.5 (0.8-1.1) 2.8 (0.8-1.1) Sodium Level 145mmol/L (136-145) Potassium Level 4.0mmol/L (3.5-5.1) Chloride Level 112mmol/L (98-107) Carbon Dioxide Level 25mmol/L (21-32) Anion Gap 8 (6-14) Blood Urea Nitrogen 21mg/dL (7-20) Creatinine 1.1mg/dL (0.6-1.0) Estimated GFR (Cockcroft-Gault) 60.5 Glucose Level 86mg/dL (70-99) Calcium Level 8.3mg/dL (8.5-10.1) Laboratory Tests Test 11/13/16 03:36 Prothrombin Time 28.2SEC (11.7-14.0) Prothromb Time International Ratio 2.8 (0.8-1.1) Medications Current Medications Diphtheria/ Tetanus/Acell Pertussis (Boostrix) 0.5 ml ONCE ONCE VAX IM Last administered on 11/10/16 16:52; Start 11/10/16 at 16:00; Stop 11/10/16 at 16:01 ; Status DC Acetaminophen 1000 mg 1,000 mg 1X ONCE PO Last administered on 11/10/16 19:00 ; Start 11/10/16 at 19:00; Stop 11/10/16 at 19:01; Status DC Sodium Chloride (Iv Sodium Chloride 0.9% 1000ml Bag) 1,000 ml @ 100 mls/hr 1X ONCE IV Last administered on 11/10/16 20:28; Start 11/10/16 at 19:00; Stop at 04:59; Status DC Amiodarone HCl (Cordarone) 200 mg DAILY PO Last administered on 11/13/16 08:54 ; Start 11/11/16 at 09:00 Aspirin (Ecotrin) 81 mg DAILY PO Last administered on 11/13/16 08:53; Start at 09:00 Docusate Sodium (Colace) 100 mg BID PO Last administered on 11/13/16 08:53; Start 11/11/16 at 09:00 Levothyroxine Sodium (Synthroid) 50 mcg DAILY07 PO Last administered on 05:59; Start 11/11/16 at 07:00 Atorvastatin Calcium (Lipitor) 10 mg QHS PO Last administered on 11/12/16 20: 19; Start 11/11/16 at 21:00 Warfarin Sodium (Coumadin) 2 mg QSU PO ; Start 11/17/16 at 16:00; Stop 11/17/16 at 16:00; Status DC Warfarin Sodium (Coumadin) 2 mg QMWF PO ; Start 11/11/16 at 16:00; Stop at 16:00; Status DC Warfarin Sodium (Coumadin) 3 mg QSA PO ; Start 11/16/16 at 16:00; Stop 11/16/16 at 16:00; Status DC Warfarin Sodium (Coumadin) 3 mg QTU PO ; Start 11/12/16 at 16:00; Stop 11/12/16 at 16:00; Status DC Zolpidem Tartrate (Ambien) 5 mg PRN QHS PRN PO INSOMNIA Last administered on 20:26; Start 11/10/16 at 22:30 Escitalopram Oxalate (Lexapro) 20 mg DAILY PO Last administered on 11/13/16 08 :53; Start 11/11/16 at 09:00 Warfarin Sodium (Coumadin Per Physician) 1 each PRN DAILY PRN MC SEE COMMENTS Last administered on 11/12/16 12:43; Start 11/10/16 at 22:30 Acetaminophen 650 mg 650 mg PRN Q6HRS PRN PO MILD PAIN / TEMP Last administered on 11/11/16 14:53; Start 11/11/16 at 03:00 Sodium Chloride (Iv Sodium Chloride 0.9% 1000ml Bag) 1,000 ml @ 100 mls/hr Q10H IV Last administered on 11/13/16 08:54; Start 11/11/16 at 10:45; Stop at 09:55; Status DC Warfarin Sodium (Coumadin) 3 mg TuSa@16 PO Last administered on 11/12/16 16:03 ; Start 11/12/16 at 16:00 Warfarin Sodium (Coumadin) 2 mg SuMoWeThFr@16 PO Last administered on 17:47; Start 11/11/16 at 16:00 Acetaminophen/ Codeine Phosphate (Tylenol #3) 1 tab PRN Q6HRS PRN PO PAIN; Start 11/11/16 at 14:30; Status Cancel Acetaminophen/ Codeine Phosphate (Tylenol #3) 1 tab PRN Q6HRS PRN PO PAIN; Start 11/11/16 at 14:45; Stop 11/11/16 at 14:45; Status DC Ibuprofen (Motrin) 400 mg PRN Q6HRS PRN PO INFLAMMATION Last administered on 09:31; Start 11/11/16 at 14:45 Oxycodone/ Acetaminophen (Percocet 5/325) 1 tab PRN Q6HRS PRN PO SEVERE PAIN Last administered on 11/13/16 04:57; Start 11/11/16 at 22:00 Morphine Sulfate (Ms Contin) 15 mg BID PO Last administered on 11/13/16 08:54 ; Start 11/12/16 at 13:00 Polyethylene Glycol (miraLAX PACKET) 17 gm DAILY PO Last administered on 08:54; Start 11/12/16 at 14:00 Primidone (Mysoline) 50 mg DAILY PO Last administered on 11/13/16 08:53; Start 11/12/16 at 15:00 Active Scripts Active Oxycodone-Acetaminophen 5-325 (Oxycodone Hcl/Acetaminophen) 1 Each Tablet 1 Tab PO PRN Q4HRS PRN Reported Ambien (Zolpidem Tartrate) 10 Mg Tablet 1 Tab PO QHS Warfarin Sodium 3 Mg Tablet 1 Tab PO QSA Warfarin Sodium 3 Mg Tablet 1 Tab PO QTU Warfarin Sodium 2 Mg Tablet 1 Tab PO QSU Warfarin Sodium 2 Mg Tablet 2 Mg PO QMWF Hydrochlorothiazide Tablet (Hydrochlorothiazide) 25 Mg Tablet 25 Mg PO Colace (Docusate Sodium) 100 Mg Capsule 100 Mg PO Lexapro (Escitalopram Oxalate) 20 Mg Tablet 20 Mg PO Aspir 81 (Aspirin) 81 Mg Tablet.dr 81 Mg PO Simvastatin 20 Mg Tablet 20 Mg PO Cordarone (Amiodarone Hcl) 200 Mg Tablet 200 Mg PO Levothyroxine Sodium 50 Mcg Tablet 50 Mcg PO Vitals/I & O Vital Sign - Last 24 Hours 11/12/16 11/12/16 11/12/16 11/12/16 13:03 13:03 14:05 14:58 Temp 98.0 98.0 Pulse 59 Resp 20 20 16 18 B/P 154/84 Pulse Ox 98 O2 Delivery Room Air Room Air Room Air 11/12/16 11/12/16 11/12/16 11/12/16 17:29 19:15 20:00 20:19 Temp 98.4 98.4 Pulse 60 Resp 16 18 B/P 131/71 Pulse Ox 93 93 O2 Delivery Room Air Room Air Room Air Room Air O2 Flow Rate 3.0 11/12/16 11/12/16 11/13/16 11/13/16 20:26 23:13 03:05 04:57 Temp 98.3 98.3 98.3 98.3 Pulse 65 62 Resp 18 18 B/P 148/83 136/78 Pulse Ox 93 91 93 93 O2 Delivery Room Air Room Air Room Air Room Air O2 Flow Rate 3.0 3.0 11/13/16 11/13/16 11/13/16 11/13/16 05:57 07:00 07:38 08:54 Temp 98.1 98.1 Pulse 58 58 Resp 18 B/P 136/74 136/74 Pulse Ox 93 95 O2 Delivery Room Air Room Air Room Air O2 Flow Rate 3.0 11/13/16 08:54 Resp 18 O2 Delivery Room Air Intake and Output 11/12/16 11/12/16 11/13/16 15:00 23:00 07:00 Intake Total 2770 ml 700 ml Balance 2770 ml 700 ml DALE MARTINEZ MD Nov 13, 2016 11:11
[2016-11-13] MEDS ORDERED: PRIM50TA PO (13:04)
--- NOTE | 2016-11-13 13:07 | PDOC3 ---
Discharge Summary Visit Information Date of Admission: Nov 10, 2016 Date of Discharge: Nov 13, 2016 Admitting Diagnosis: fall Final Diagnosis 1. Syncope, vasovagal, . fall 2. Essential tremor with orthostatic comer, no sign of parkinsonism or dystonia. 3. History of anoxic encephalopathy over 3 years ago. 4. CAD, heart valve repair of mitral valve , hypertension, 5. hypothyroidism, depression, history of rheumatic fever, osteoarthritis, 6. status post thyroidectomy, cholecystectomy, 7. vasomotor nephropathy was POA, dehydration may have precipitated vasovagal syncope Problems Medical Problems: (1) Dehydration Status: Acute (2) Head injury Status: Acute Brief Hospital Course Allergies Allergies Coded Allergies Type Severity Reaction Last Updated Verified codeine Allergy Intermediate rash 10/17/14 No iodine Allergy Intermediate Hives, Itching 10/17/14 No Vital Signs Vital Signs Date Time Temp Pulse Resp B/P Pulse Ox O2 Delivery O2 Flow Rate FiO2 11/13/16 12:04 16 Room Air 11/13/16 11:00 98.1 59 152/80 96 98.1 11/13/16 05:57 3.0 Lab Results Laboratory Tests Test 11/12/16 05:00 11/13/16 03:36 Prothrombin Time 25.9SEC (11.7-14.0) 28.2SEC (11.7-14.0) Prothromb Time International Ratio 2.5 (0.8-1.1) 2.8 (0.8-1.1) Sodium Level 145mmol/L (136-145) Potassium Level 4.0mmol/L (3.5-5.1) Chloride Level 112mmol/L (98-107) Carbon Dioxide Level 25mmol/L (21-32) Anion Gap 8 (6-14) Blood Urea Nitrogen 21mg/dL (7-20) Creatinine 1.1mg/dL (0.6-1.0) Estimated GFR (Cockcroft-Gault) 60.5 Glucose Level 86mg/dL (70-99) Calcium Level 8.3mg/dL (8.5-10.1) Laboratory Tests Test 11/13/16 03:36 Prothrombin Time 28.2SEC (11.7-14.0) Prothromb Time International Ratio 2.8 (0.8-1.1) Brief Hospital Course Ms. Alejo is a 66 old admit with fall, then ongoing pain, Neuro consult for tremor, was not deemed dystonic Primidone started and increased to 50 TID pain controlled, pt appeared improved Discharge Information Condition at Discharge: Improved Follow Up: Weeks Disposition/Orders: D/C to Home Scheduled Primidone (Primidone) 50 MG PO TID Warfarin Sodium (Warfarin Sodium) 2 MG PO QMWF (Reported) Warfarin Sodium (Warfarin Sodium) 1 TAB PO QSU (Reported) Warfarin Sodium (Warfarin Sodium) 1 TAB PO QTU (Reported) Warfarin Sodium (Warfarin Sodium) 1 TAB PO QSA (Reported) Zolpidem Tartrate (Ambien) 1 TAB PO QHS (Reported) Scheduled PRN Oxycodone Hcl/Acetaminophen (Oxycodone-Acetaminophen 5-325) 1 TAB PO PRN Q4HRS PRN PRN SEVERE PAIN Miscellaneous Medications Amiodarone Hcl (Cordarone) 200 MG PO (Reported) Aspirin (Aspir 81) 81 MG PO (Reported) Docusate Sodium (Colace) 100 MG PO (Reported) Escitalopram Oxalate (Lexapro) 20 MG PO (Reported) Hydrochlorothiazide (Hydrochlorothiazide Tablet ) 25 MG PO (Reported) Levothyroxine Sodium (Levothyroxine Sodium) 50 MCG PO (Reported) Simvastatin (Simvastatin) 20 MG PO (Reported) Discontinued Medications Metoprolol Succinate (Metoprolol Succinate ( Xl )) 25 MG PO (Reported) DADA GREENWOOD MD Nov 13, 2016 13:07
[2016-11-13] MEDS ORDERED: PRIMIDONE 50 MG TABLET PO SCH (13:30)
[2016-11-14] MEDS ORDERED: PRIMIDONE 50 MG TABLET PO SCH (09:00)
[2016-11-16] MEDS ORDERED: WARFARIN 3 MG TABLET. PO SCH (16:00)
[2016-11-17] MEDS ORDERED: WARFARIN 2 MG TABLET. PO SCH (16:00)
== END 2016-11-13 13:00 | disposition home health service (06) | DRG 683 ==
LOC: ER 15:19 → 4 NORTH 19:10
PROVIDERS: ADMIT Internal Medicine Hematology & Oncology; ATTEND Internal Medicine Hematology & Oncology
DX: N17.0 Acute kidney failure with tubular necrosis (principal); I42.9 Cardiomyopathy, unspecified; I13.0 Hypertensive heart and chronic kidney disease with heart failure and stage 1 through stage 4 chronic kidney disease, or unspecified chronic kidney disease; R55 Syncope and collapse; I50.22 Chronic systolic (congestive) heart failure; F32.9 Major depressive disorder, single episode, unspecified; I10 Essential (primary) hypertension; G89.29 Other chronic pain; E86.0 Dehydration; I25.10 Atherosclerotic heart disease of native coronary artery without angina pectoris; W19.XXXA Unspecified fall, initial encounter; S09.90XA Unspecified injury of head, initial encounter; N18.9 Chronic kidney disease, unspecified; E78.00 Pure hypercholesterolemia, unspecified; E89.0 Postprocedural hypothyroidism; E78.5 Hyperlipidemia, unspecified; G25.0 Essential tremor; Z79.01 Long term (current) use of anticoagulants; Z95.1 Presence of aortocoronary bypass graft; Z95.2 Presence of prosthetic heart valve; Z86.74 Personal history of sudden cardiac arrest; Z82.49 Family history of ischemic heart disease and other diseases of the circulatory system; Z83.3 Family history of diabetes mellitus
CPT/HCPCS: 12001; 36415; 70450; 73562; 80048; 80053; 81001; 84443; 85027; 85610; 90471; 90715; 93005; 93306; J7030; 97116; 97530; 97535; 99285-25

== ENCOUNTER 2018-06-30 10:55 | Inpatient (IN) | payer MEDICARE ==
[~2018-06-30] VITALS: Ht 167.6 cm; Wt 59.5 kg
[~2018-06-30 10:55] MED LIST changes: +DOCU-109 PO; -DOCU-27 PO; -ESCI20TA10 PO; +LEXAPRO20 MG PO; +METO-239 PO; -METO25TA9 PO; +OXYC1TAB7 PO; +PRIM50TA PO; -WARF2TAB7 PO; +WARF2TAB96 PO; +WARF3TAB50 PO; +ZOLP10TA PO
[2018-06-30] MEDS ORDERED: MORPHINE SULFATE 4 MG/ML VIAL. IV ONE ×2 (11:15→13:45)
--- NOTE | 2018-06-30 11:15 | PHYS DOC ---
Past Medical History Past Medical History: Arrhythmia, CAD, High Cholesterol, Hypertension, Hypothyroid, Hepatitis, Renal Failure, Other Additional Past Medical Histor: mitral valve prolapse,code blue in this ED, LIVER PROBLEM Past Surgical History: Coronary Bypass Surgery, Other Additional Past Surgical Histo: mitral valve replacement, left foot, thyroid surgery Alcohol Use: None Drug Use: None Adult General Chief Complaint Chief Complaint: ABDOMINAL PAIN HPI HPI Patient is a 68 year old female who presents with right abdomen and flank pain. Patient states she had onset of severe pain in the right lower quadrant and right flank area overnight while she was trying to sleep. The pain worsened throughout the morning. She denies prior history of similar symptoms. The pain is constant but does wax and wane in intensity. There are no aggravating or alleviating factors although sometimes the pain is worse with movement but not always. She denies urinary symptoms. She has no prior history of abdominal surgeries. No nausea or vomiting. No fever or chills. Review of Systems Review of Systems Constitutional: Denies fever or chills Eyes: Denies change in visual acuity HENT: Denies nasal congestion Respiratory: Denies cough or shortness of breath Cardiovascular: No additional information not addressed in HPI GI: Denies nausea or vomiting : Denies dysuria or hematuria Musculoskeletal: Denies back pain Integument: Denies rash or skin lesions Neurologic: Denies headache Endocrine: Denies polyuria All other systems were reviewed and found to be within normal limits, except as documented in this note. Current Medications Current Medications Current Medications Medications (Trade) Dose Ordered Sig/Johnnie Start Time Stop Time Status Last Admin Dose Admin Morphine Sulfate (Morphine Sulfate) 4 mg 1X ONCE 06/30/18 13:45 06/30/18 13:50 DC 06/30/18 13:54 4 MG Sodium Chloride 500 ml @ 500 mls/hr 1X ONCE 06/30/18 12:30 06/30/18 13:29 DC 06/30/18 12:53 500 MLS/HR Allergies Allergies Allergies Coded Allergies Type Severity Reaction Last Updated Verified codeine Allergy Intermediate rash 10/17/14 No iodine Allergy Intermediate Hives, Itching 10/17/14 No Physical Exam Physical Exam Constitutional: Well developed, well nourished, no acute distress except for intermittent episodes of pain that seem to resolve briefly, non-toxic appearance HENT: Normocephalic, atraumatic, bilateral external ears normal, oropharynx moist Eyes: PERRLA, EOMI, conjunctiva normal Neck: Normal range of motion, no tenderness Cardiovascular:Heart rate regular rhythm Lungs & Thorax: Bilateral breath sounds clear to auscultation Abdomen: Bowel sounds normal, soft, NTTP, no guarding or rebound Skin: Warm, dry, no erythema Back: No tenderness Extremities: No no edema Neurologic: Alert and oriented X 3 Psychologic: Affect normal Current Patient Data Vital Signs Vital Signs Date Time Temp Pulse Resp B/P (MAP) Pulse Ox O2 Delivery O2 Flow Rate FiO2 06/30/18 14:00 60 18 136/66 (89) 90 Room Air 06/30/18 11:05 98.9 98.9 Lab Values Laboratory Tests Test 06/30/18 11:41 06/30/18 12:05 White Blood Count 5.1 x10^3/uL (4.0-11.0) Red Blood Count 3.62 x10^6/uL (3.50-5.40) Hemoglobin 11.8 g/dL (12.0-15.5) L Hematocrit 35.3 % (36.0-47.0) L Mean Corpuscular Volume 98 fL (79-100) Mean Corpuscular Hemoglobin 33 pg (25-35) Mean Corpuscular Hemoglobin Concent 34 g/dL (31-37) Red Cell Distribution Width 13.9 % (11.5-14.5) Platelet Count 125 x10^3/uL (140-400) L Neutrophils (%) (Auto) 62 % (31-73) Lymphocytes (%) (Auto) 24 % (24-48) Monocytes (%) (Auto) 12 % (0-9) H Eosinophils (%) (Auto) 1 % (0-3) Basophils (%) (Auto) 1 % (0-3) Neutrophils # (Auto) 3.2 x10^3uL (1.8-7.7) Lymphocytes # (Auto) 1.2 x10^3/uL (1.0-4.8) Monocytes # (Auto) 0.6 x10^3/uL (0.0-1.1) Eosinophils # (Auto) 0.1 x10^3/uL (0.0-0.7) Basophils # (Auto) 0.1 x10^3/uL (0.0-0.2) Sodium Level 144 mmol/L (136-145) Potassium Level 4.1 mmol/L (3.5-5.1) Chloride Level 108 mmol/L (98-107) H Carbon Dioxide Level 27 mmol/L (21-32) Anion Gap 9 (6-14) Blood Urea Nitrogen 24 mg/dL (7-20) H Creatinine 1.3 mg/dL (0.6-1.0) H Estimated GFR (Cockcroft-Gault) 49.6 Glucose Level 87 mg/dL (70-99) Calcium Level 8.6 mg/dL (8.5-10.1) Total Bilirubin 0.8 mg/dL (0.2-1.0) Direct Bilirubin 0.3 mg/dL (0.0-0.2) H Aspartate Amino Transferase (AST) 47 U/L (15-37) H Alanine Aminotransferase (ALT) 47 U/L (14-59) Alkaline Phosphatase 62 U/L (46-116) Total Protein 7.4 g/dL (6.4-8.2) Albumin 3.4 g/dL (3.4-5.0) Lipase 131 U/L (73-393) Urine Collection Type U cath Urine Color Yellow Urine Clarity Clear Urine pH 7.0 Urine Specific [place] 1.015 Urine Protein Negative mg/dL (NEG-TRACE) Urine Glucose (UA) Negative mg/dL (NEG) Urine Ketones (Stick) Negative mg/dL (NEG) Urine Blood Negative (NEG) Urine Nitrite Negative (NEG) Urine Bilirubin Negative (NEG) Urine Urobilinogen Dipstick 1.0 mg/dL (0.2 mg/dL) Urine Leukocyte Esterase Negative (NEG) Urine RBC 0 /HPF (0-2) Urine WBC 0 /HPF (0-4) Urine Squamous Epithelial Cells Occ /LPF Urine Bacteria 0 /HPF (0-FEW) Laboratory Tests 06/30/18 11:41 Laboratory Tests 06/30/18 11:41 EKG EKG [] Radiology/Procedures Radiology/Procedures [] Course & Med Decision Making Course & Med Decision Making Pertinent Labs and Imaging studies reviewed. (See chart for details) 11:10: Patient is seen and examined. Appears uncomfortable during her pain episodes. Standard abdominal pain labs ordered. Will await UA to order CT. 14:30: All results are reviewed. There are no acute funding's on her lab panel. She does have a creatinine of 1.3 but has chronic kidney disease. Urinalysis did not appear infected but the patient did have some. Fat stranding on her CT scan on the right side which is the area where her pain is located. No leukocytosis. In the emergency department, the patient required several doses of morphine for adequate pain control. Although there is no clear cause for her pain, plan is to admit the patient for observation and intractable abdominal pain. Urine culture is added to her lab panel. Prior to admission, all results are discussed with the patient and all of her questions are answered. She does desire admission over discharge home today. Discussed with Dr. Bhandari who will primarily admit the patient. Mariam Disclaimer Mariam Disclaimer This electronic medical record was generated, in whole or in part, using a voice recognition dictation system. Departure Departure Referrals: CECIL ZAMORA MD (PCP) CIERA SAUCEDO DO Jun 30, 2018 11:15
[2018-06-30 11:57] LABS: BASO # 0.1 x10^3/uL (0.0-0.2); BASO % 1 % (0-3); EOS # 0.1 x10^3/uL (0.0-0.7); EOS % 1 % (0-3); HEMATOCRIT 35.3 % (36.0-47.0); HEMOGLOBIN 11.8 g/dL (12.0-15.5); LYMPH # 1.2 x10^3/uL (1.0-4.8); LYMPH % 24 % (24-48); MEAN CORPUSCULAR HEMOGLOBIN 33 pg (25-35); MEAN CORPUSCULAR HGB CONC 34 g/dL (31-37); MEAN CORPUSCULAR VOLUME 98 fL (79-100); MONO # 0.6 x10^3/uL (0.0-1.1); MONO % 12 % (0-9); NEUT # 3.2 x10^3uL (1.8-7.7); NEUT % 62 % (31-73); PLATELET COUNT 125 x10^3/uL (140-400); RED BLOOD COUNT 3.62 x10^6/uL (3.50-5.40); RED CELL DISTRIBUTION WIDTH 13.9 % (11.5-14.5); WHITE BLOOD COUNT 5.1 x10^3/uL (4.0-11.0)
[2018-06-30 12:06] LABS: CALCIUM 8.6 mg/dL (8.5-10.1); CREATININE 1.3 mg/dL (0.6-1.0); GFR 49.6; POTASSIUM 4.1 mmol/L (3.5-5.1)
[2018-06-30 12:12] LABS: ALBUMIN 3.4 g/dL (3.4-5.0); DIRECT BILIRUBIN 0.3 mg/dL (0.0-0.2); TOTAL BILIRUBIN 0.8 mg/dL (0.2-1.0); TOTAL PROTEIN 7.4 g/dL (6.4-8.2)
[2018-06-30 12:15] LABS: BILIRUBIN,URINE NEGATIVE (NEG); CLARITY,URINE CLEAR; COLOR,URINE YELLOW; NITRITE,URINE NEGATIVE (NEG); PROTEIN,URINE NEGATIVE (NEG-TRACE)
[2018-06-30 12:21] LABS: BACTERIA,URINE 0 /HPF (0-FEW); RBC,URINE 0 /HPF (0-2); SQUAMOUS EPITHELIAL CELL,UR OCC /LPF; WBC,URINE 0 /HPF (0-4)
[2018-06-30] MEDS ORDERED: IV NORMAL SALINE 500ML BAG 500 ML IV ONE (12:30)
--- NOTE | 2018-06-30 13:11 | RAD ---
Examination: CT of the abdomen pelvis without contrast HISTORY: History of right flank pain COMPARISON: 03/26/2013 TECHNIQUE: Axial CT images of the abdomen pelvis were performed without contrast. Coronal and sagittal reformats are performed Exposure: One or more of the following individualized dose reduction techniques were utilized for this examination: 1. Automated exposure control 2. Adjustment of the mA and/or kV according to patient size 3. Use of iterative reconstruction technique FINDINGS: Mild right lung base airspace opacities likely atelectasis or infiltrates. Partially visualized emphysematous changes identified in the lungs. No evidence of free air identified in the abdomen. The evaluation of the solid organs is limited due to lack of IV contrast. The evaluation of bowel is limited due to lack of oral contrast. The visualized noncontrasted liver, spleen, adrenals grossly appears unremarkable. Cholecystectomy clips identified. The stomach is mildly distended. The visualized pancreas grossly appears unremarkable. The small bowel is nondilated. The visualized appendix grossly appears unremarkable. Feces and gas noted in the colon. Scattered colonic diverticulosis. Urinary bladder is mildly distended. The visualized uterus, adnexa grossly appears unremarkable. No evidence of intrarenal collecting system calculi identified. There is minimal fat stranding identified about the right kidney. Urinary bladder is mildly distended. Severe aortic atherosclerosis. Mild degenerative changes lumbar spine. Small fat and omentum-containing umbilical hernia. IMPRESSION: 1. Minimal fat stranding identified about the right kidney. Correlate for urinary tract infection. No evidence of intrarenal collecting system calculi. 2. Cholecystectomy changes. Electronically signed by: Mesfin Worthy MD (06/30/2018 1:08 PM) [place] [id number]
[2018-06-30] MEDS ORDERED: ONDANSETRON PF 4 MG/2 ML VIAL. IV PRN ×2 (15:00→15:15)
[2018-06-30] MEDS ORDERED: traMADol 50 MG TABLET PO PRN (15:15)
[2018-06-30] MEDS ORDERED: DOCUSATE SODIUM 100 MG CAPSULE. PO PRN (15:15)
[2018-06-30] MEDS ORDERED: ACETAMINOPHEN 325 MG TABLET. PO PRN (15:15)
[2018-06-30] MEDS ORDERED: LABETALOL 20 MG/4 ML DISP.SYRIN. IVP PRN (15:15)
--- NOTE | 2018-06-30 15:26 | PDOC1 ---
History and Physical Date of Admission Date of Admission 06/30/18 Identification/Chief Complaint Chief Complaint rt flank pain Source Source: Chart review, Patient History of Present Illness History of Present Illness HPI Patient is a 68 year old female who presents with right abdomen and flank pain for 2 days. pt denies any trauma and never had similar pain before. She started to have rt flank pain since 2 days ago, at night when she duke to bed. The pain is dull, constant, severe, 10/10, radiating to rt leg, with rt leg numbness, tingling and hard to move 2/2 pain. She could not move last night and could not sleep and then came to ER today. has subjective fever, chills, no dysuria, frequency or urgency. had nausea, no vomiting, no diarrhea or constipation. Movement makes the pain worse, but also feels pain if lying still. severe tenderness. no high wbc or fever in ER, ct IMPRESSION: 1. Minimal fat stranding identified about the right kidney. Correlate for urinary tract infection. No evidence of intrarenal collecting system calculi. 2. Cholecystectomy changes. allergic to codine, but ok to take opoids. chronically on opiods for chest pain post Open heart sx. pt said has an appt with her card on 07/07 to change leads in her ICD. want card here to see her while she is here. Past Medical History Cardiovascular: CAD, HTN, Hyperlipidemia, Other Pulmonary: No pertinent hx CENTRAL NERVOUS SYSTEM: Other GI: No pertinent hx Heme/Onc: No pertinent hx Hepatobiliary: No pertinent hx Psych: No pertinent hx Rheumatologic: No pertinent hx Infectious disease: No pertinent hx Renal/: Chronic renal insuff Endocrine: Hypothyroidism Past Surgical History Past Surgical History : mitral valve prolapse,code blue in this ED,LIVER PROBLEM Past Surgical History: Coronary Bypass Surgery, Other Additional Past Surgical Histo: mitral valve replacement, left foot, thyroid surgery Alcohol Use: None Past Surgical History: Other Family History Family History: Coronary Artery Disease, Diabetes, Hypertension Social History Smoke: No ALCOHOL: none Drugs: None Current Problem List Problem List Problems Medical Problems: (1) Abdominal pain Status: Acute (2) Flank pain Status: Acute Current Medications Current Medications Current Medications Medications (Trade) Dose Ordered Sig/Johnnie Start Time Stop Time Status Last Admin Dose Admin Acetaminophen (Tylenol) 650 mg PRN Q6HRS PRN 06/30/18 15:15 UNV Ceftriaxone Sodium 1 gm/ Dextrose 50 ml @ 100 mls/hr Q24H 06/30/18 15:15 UNV Docusate Sodium (Colace) 100 mg PRN DAILY PRN 06/30/18 15:15 UNV Labetalol HCl (Normodyne Iv Push) 20 mg PRN Q2HR PRN 06/30/18 15:15 UNV Morphine Sulfate (Morphine Sulfate) 4 mg PRN Q2HR PRN 06/30/18 15:15 UNV Ondansetron HCl (Zofran) 4 mg PRN Q6HRS PRN 06/30/18 15:15 UNV Sodium Chloride 1,000 ml @ 65 mls/hr [id number] 06/30/18 14:46 07/01/18 14:45 Tramadol HCl (Ultram) 50 mg PRN Q6HRS PRN 06/30/18 15:15 UNV Allergies Allergies Allergies Coded Allergies Type Severity Reaction Last Updated Verified codeine Allergy Intermediate rash 10/17/14 No iodine Allergy Intermediate Hives, Itching 10/17/14 No ROS Review of System CONSTITUTIONAL: No fever or chills EYES: No recent changes SKIN: No rash or itching CARDIOVASCULAR: No chest pain, syncope, palpitations, or edema RESPIRATORY: No SOB or cough GASTROINTESTINAL: No nausea, vomiting or abdominal pain NEUROLOGICAL: No headaches or weakness ENDOCRINE: No cold or heat intolerance GENITOURINARY: No urgency or frequency of urination MUSCULOSKELETAL: No back pain or joint pain LYMPHATICS: No enlarged lymph nodes PSYCHIATRIC: No anxiety or depression Physical Exam Physical Exam GEN.: No apparent distress. Alert and oriented. HEENT: Head is normocephalic, atraumatic NECK: Supple. LUNGS: Clear to auscultation. HEART: RRR, S1, S2 present. Peripheral pulses intact ABDOMEN: Soft, Positive bowel sounds. severe rt side abd tenderness ,no guarding or rebound. EXTREMITIES: Without any cyanosis. no edema, + bl foot pulse, limited RT LEG ROM 2/2 rt flank pain NEUROLOGIC: Normal speech, normal tone PSYCHIATRIC: Normal affect, normal mood. SKIN: No ulcerations Vitals Vitals Vital Signs Date Time Temp Pulse Resp B/P (MAP) Pulse Ox O2 Delivery O2 Flow Rate FiO2 06/30/18 15:00 18 95 Room Air 06/30/18 14:30 66 138/71 (93) 06/30/18 11:05 98.9 98.9 Labs Labs Laboratory Tests Test 06/30/18 11:41 06/30/18 12:05 White Blood Count 5.1 x10^3/uL (4.0-11.0) Red Blood Count 3.62 x10^6/uL (3.50-5.40) Hemoglobin 11.8 g/dL (12.0-15.5) Hematocrit 35.3 % (36.0-47.0) Mean Corpuscular Volume 98 fL (79-100) Mean Corpuscular Hemoglobin 33 pg (25-35) Mean Corpuscular Hemoglobin Concent 34 g/dL (31-37) Red Cell Distribution Width 13.9 % (11.5-14.5) Platelet Count 125 x10^3/uL (140-400) Neutrophils (%) (Auto) 62 % (31-73) Lymphocytes (%) (Auto) 24 % (24-48) Monocytes (%) (Auto) 12 % (0-9) Eosinophils (%) (Auto) 1 % (0-3) Basophils (%) (Auto) 1 % (0-3) Neutrophils # (Auto) 3.2 x10^3uL (1.8-7.7) Lymphocytes # (Auto) 1.2 x10^3/uL (1.0-4.8) Monocytes # (Auto) 0.6 x10^3/uL (0.0-1.1) Eosinophils # (Auto) 0.1 x10^3/uL (0.0-0.7) Basophils # (Auto) 0.1 x10^3/uL (0.0-0.2) Sodium Level 144 mmol/L (136-145) Potassium Level 4.1 mmol/L (3.5-5.1) Chloride Level 108 mmol/L (98-107) Carbon Dioxide Level 27 mmol/L (21-32) Anion Gap 9 (6-14) Blood Urea Nitrogen 24 mg/dL (7-20) Creatinine 1.3 mg/dL (0.6-1.0) Estimated GFR (Cockcroft-Gault) 49.6 Glucose Level 87 mg/dL (70-99) Calcium Level 8.6 mg/dL (8.5-10.1) Total Bilirubin 0.8 mg/dL (0.2-1.0) Direct Bilirubin 0.3 mg/dL (0.0-0.2) Aspartate Amino Transf (AST/SGOT) 47 U/L (15-37) Alanine Aminotransferase (ALT/SGPT) 47 U/L (14-59) Alkaline Phosphatase 62 U/L (46-116) Total Protein 7.4 g/dL (6.4-8.2) Albumin 3.4 g/dL (3.4-5.0) Lipase 131 U/L (73-393) Urine Collection Type U cath Urine Color Yellow Urine Clarity Clear Urine pH 7.0 Urine Specific [place] 1.015 Urine Protein Negative mg/dL (NEG-TRACE) Urine Glucose (UA) Negative mg/dL (NEG) Urine Ketones (Stick) Negative mg/dL (NEG) Urine Blood Negative (NEG) Urine Nitrite Negative (NEG) Urine Bilirubin Negative (NEG) Urine Urobilinogen Dipstick 1.0 mg/dL (0.2 mg/dL) Urine Leukocyte Esterase Negative (NEG) Urine RBC 0 /HPF (0-2) Urine WBC 0 /HPF (0-4) Urine Squamous Epithelial Cells Occ /LPF Urine Bacteria 0 /HPF (0-FEW) Laboratory Tests Test 06/30/18 11:41 06/30/18 12:05 White Blood Count 5.1 x10^3/uL (4.0-11.0) Red Blood Count 3.62 x10^6/uL (3.50-5.40) Hemoglobin 11.8 g/dL (12.0-15.5) Hematocrit 35.3 % (36.0-47.0) Mean Corpuscular Volume 98 fL (79-100) Mean Corpuscular Hemoglobin 33 pg (25-35) Mean Corpuscular Hemoglobin Concent 34 g/dL (31-37) Red Cell Distribution Width 13.9 % (11.5-14.5) Platelet Count 125 x10^3/uL (140-400) Neutrophils (%) (Auto) 62 % (31-73) Lymphocytes (%) (Auto) 24 % (24-48) Monocytes (%) (Auto) 12 % (0-9) Eosinophils (%) (Auto) 1 % (0-3) Basophils (%) (Auto) 1 % (0-3) Neutrophils # (Auto) 3.2 x10^3uL (1.8-7.7) Lymphocytes # (Auto) 1.2 x10^3/uL (1.0-4.8) Monocytes # (Auto) 0.6 x10^3/uL (0.0-1.1) Eosinophils # (Auto) 0.1 x10^3/uL (0.0-0.7) Basophils # (Auto) 0.1 x10^3/uL (0.0-0.2) Sodium Level 144 mmol/L (136-145) Potassium Level 4.1 mmol/L (3.5-5.1) Chloride Level 108 mmol/L (98-107) Carbon Dioxide Level 27 mmol/L (21-32) Anion Gap 9 (6-14) Blood Urea Nitrogen 24 mg/dL (7-20) Creatinine 1.3 mg/dL (0.6-1.0) Estimated GFR (Cockcroft-Gault) 49.6 Glucose Level 87 mg/dL (70-99) Calcium Level 8.6 mg/dL (8.5-10.1) Total Bilirubin 0.8 mg/dL (0.2-1.0) Direct Bilirubin 0.3 mg/dL (0.0-0.2) Aspartate Amino Transf (AST/SGOT) 47 U/L (15-37) Alanine Aminotransferase (ALT/SGPT) 47 U/L (14-59) Alkaline Phosphatase 62 U/L (46-116) Total Protein 7.4 g/dL (6.4-8.2) Albumin 3.4 g/dL (3.4-5.0) Lipase 131 U/L (73-393) Urine Collection Type U cath Urine Color Yellow Urine Clarity Clear Urine pH 7.0 Urine Specific [place] 1.015 Urine Protein Negative mg/dL (NEG-TRACE) Urine Glucose (UA) Negative mg/dL (NEG) Urine Ketones (Stick) Negative mg/dL (NEG) Urine Blood Negative (NEG) Urine Nitrite Negative (NEG) Urine Bilirubin Negative (NEG) Urine Urobilinogen Dipstick 1.0 mg/dL (0.2 mg/dL) Urine Leukocyte Esterase Negative (NEG) Urine RBC 0 /HPF (0-2) Urine WBC 0 /HPF (0-4) Urine Squamous Epithelial Cells Occ /LPF Urine Bacteria 0 /HPF (0-FEW) VTE Prophylaxis Ordered VTE Prophylaxis Devices: Yes VTE Pharmacological Prophylaxi: Yes Assessment/Plan Assessment/Plan rt flank pain, 2/2 possible pyelonephritis HTN hld h/o CAD s/p CABG H/o MVReplacement, mechanical , on warfarin hypothyroidism h/o hepatitis CKD3 PPM/ICD plan: add ceftriaxone for now, UA neg, repeat UA, ucx, bcx need verify home meds pain control card consult as requested by pt to check ICD, pt supposed to fu with own card to fix leads next week check INR, need cont warfarin INR 2-3 lumbar MRI to rule out spinal stenosis IVF for today. labs tmr ALFREDO NATARAJAN MD Jun 30, 2018 15:26
[2018-06-30 15:30] VITALS: BP 154/71
[2018-06-30] MEDS ORDERED: ENOXAPARIN 30 MG/0.3 ML SYRINGE. SQ SCH (16:00)
[2018-06-30 16:46] LABS: PROTHROMBIN TIME PATIENT 22.3 SEC (11.7-14.0)
[2018-06-30] MEDS: cefTRIAXone IV Push 1 GM VIAL. IVP SCH (17:27)
[2018-06-30] MEDS: MORPHINE SULFATE 4 MG/ML VIAL. IV PRN ×2 (17:28→20:53)
[2018-06-30] MEDS: IV NORMAL SALINE 1000ML BAG 1,000 ML IV SCH (17:30)
[2018-06-30] MEDS ORDERED: FURO40TA4 PO (18:27)
[2018-06-30 19:00] VITALS: BP 135/74
[2018-06-30] MEDS ORDERED: ENOXAPARIN 40 MG/0.4 ML SYRINGE. SQ SCH (19:00)
[2018-06-30] MEDS: ZOLPIDEM 5 MG TABLET. PO SCH (20:53)
[2018-06-30] MEDS: DOCUSATE SODIUM 100 MG CAPSULE. PO SCH (20:53)
[2018-06-30 23:00] VITALS: BP 130/69
[2018-07-01 03:00] VITALS: BP 150/81
[2018-07-01] MEDS: MORPHINE SULFATE 4 MG/ML VIAL. IV PRN ×6 (03:37→17:25)
[2018-07-01 07:00] VITALS: BP 145/77
[2018-07-01] MEDS: DOCUSATE SODIUM 100 MG CAPSULE. PO SCH ×2 (08:46→20:19)
[2018-07-01] MEDS ORDERED: FUROSEMIDE 40 MG TABLET. PO SCH (09:00)
[2018-07-01] MEDS: IV NORMAL SALINE 1000ML BAG 1,000 ML IV SCH (10:25)
--- NOTE | 2018-07-01 10:38 | PDOC ---
PROGRESS NOTES History of Present Illness History of Present Illness Assessment/Plan Assessment/Plan rt flank pain intractable, possible pyelonephritis dddl/s Moderate scattered degenerative changes in the lower lumbar spine with mild to moderate central spinal stenosis at L3-4 and to a lesser degree at L4-5. HTN hyperlipidemia h/o CAD s/p CABG H/o MV Replacement, mechanical , on lovenox pacemaker lead malfunction hypothyroidism h/o hepatitis CKD3 PPM/ICD plan: iv ceftriaxone , UA neg, repeat UA, ucx, bcx home meds pain control card consult to check ICD, lumbar ct to rule out spinal stenosis IVF for today. labs tmr Vitals Vitals Vital Signs Date Time Temp Pulse Resp B/P (MAP) Pulse Ox O2 Delivery O2 Flow Rate FiO2 07/01/18 10:25 Room Air 07/01/18 07:00 98.4 61 18 145/77 (99) 93 98.4 Physical Exam Physical Exam Physical Exam GEN.: No apparent distress. Alert and oriented. HEENT: Head is normocephalic, atraumatic NECK: Supple. LUNGS: Clear to auscultation. HEART: RRR, S1, S2 present. Peripheral pulses intact ABDOMEN: Soft, Positive bowel sounds. severe rt side abd tenderness ,no guarding or rebound. EXTREMITIES: Without any cyanosis. no edema, + bl foot pulse, limited RT LEG ROM 2/2 rt flank pain NEUROLOGIC: Normal speech, normal tone PSYCHIATRIC: Normal affect, normal mood. SKIN: No ulcerations General: Oriented X3, Cooperative, moderate distress Heart: Regular rate Lungs: Clear Abdomen: Normal bowel sounds, Soft Extremities: No cyanosis Labs LABS PROCEDURE: CT LUMBAR SPINE RECONSTRUCTION CT of the lumbar spine-reconstructions, 07/01/2018: HISTORY: Low back and right flank pain Multiplanar reconstructions of the lumbar spine were produced from the data set from the noncontrast CT abdomen and pelvis study of 06/30/2017. No fracture or destructive bony lesion is seen. The intervertebral disc spaces are fairly well preserved. There are mild degenerative changes involving scattered facet joints in the lower lumbar spine. At L3-4 there is mild posterior marginal spurring. There are mild degenerative changes involving the facet joints with moderate calcific thickening of the posterior ligaments at this level. The combination of findings is causing mild to moderate central spinal stenosis and mild bilateral foraminal narrowing at this level. At L4-5 there is moderate posterior disc bulging, more so on the left. The posterior disc margins are not clearly defined due to artifacts. There is mild posterior ligamentous thickening. The combination of findings is causing mild central spinal stenosis in a triangular configuration and mild bilateral foraminal narrowing. At L5-S1 there is normal posterior disc bulging at the midline. There are moderate degenerative changes involving the facet joints. The central spinal canal and neural foramina are well-maintained. IMPRESSION: 1. Moderate scattered degenerative changes in the lower lumbar spine with mild to moderate central spinal stenosis at L3-4 and to a lesser degree at L4-5. 2. No acute bony abnormality is detected. Exposure: One or more of the following individualized dose reduction techniques were utilized for this examination: 1. Automated exposure control 2. Adjustment of the mA and/or kV according to patient size 3. Use of iterative reconstruction technique FINDINGS: Mild right lung base airspace opacities likely atelectasis or infiltrates. Partially visualized emphysematous changes identified in the lungs. No evidence of free air identified in the abdomen. The evaluation of the solid organs is limited due to lack of IV contrast. The evaluation of bowel is limited due to lack of oral contrast. The visualized noncontrasted liver, spleen, adrenals grossly appears unremarkable. Cholecystectomy clips identified. The stomach is mildly distended. The visualized pancreas grossly appears unremarkable. The small bowel is nondilated. The visualized appendix grossly appears unremarkable. Feces and gas noted in the colon. Scattered colonic diverticulosis. Urinary bladder is mildly distended. The visualized uterus, adnexa grossly appears unremarkable. No evidence of intrarenal collecting system calculi identified. There is minimal fat stranding identified about the right kidney. Urinary bladder is mildly distended. Severe aortic atherosclerosis. Mild degenerative changes lumbar spine. Small fat and omentum-containing umbilical hernia. IMPRESSION: 1. Minimal fat stranding identified about the right kidney. Correlate for urinary tract infection. No evidence of intrarenal collecting system calculi. 2. Cholecystectomy changes. Electronically signed by: Mesfin Worthy MD (06/30/2018 1:08 PM) [facility] Laboratory Tests Test 06/30/18 11:41 06/30/18 12:05 White Blood Count 5.1 x10^3/uL (4.0-11.0) Red Blood Count 3.62 x10^6/uL (3.50-5.40) Hemoglobin 11.8 g/dL (12.0-15.5) Hematocrit 35.3 % (36.0-47.0) Mean Corpuscular Volume 98 fL (79-100) Mean Corpuscular Hemoglobin 33 pg (25-35) Mean Corpuscular Hemoglobin Concent 34 g/dL (31-37) Red Cell Distribution Width 13.9 % (11.5-14.5) Platelet Count 125 x10^3/uL (140-400) Neutrophils (%) (Auto) 62 % (31-73) Lymphocytes (%) (Auto) 24 % (24-48) Monocytes (%) (Auto) 12 % (0-9) Eosinophils (%) (Auto) 1 % (0-3) Basophils (%) (Auto) 1 % (0-3) Neutrophils # (Auto) 3.2 x10^3uL (1.8-7.7) Lymphocytes # (Auto) 1.2 x10^3/uL (1.0-4.8) Monocytes # (Auto) 0.6 x10^3/uL (0.0-1.1) Eosinophils # (Auto) 0.1 x10^3/uL (0.0-0.7) Basophils # (Auto) 0.1 x10^3/uL (0.0-0.2) Prothrombin Time 22.3 SEC (11.7-14.0) Prothromb Time International Ratio 2.0 (0.8-1.1) Sodium Level 144 mmol/L (136-145) Potassium Level 4.1 mmol/L (3.5-5.1) Chloride Level 108 mmol/L (98-107) Carbon Dioxide Level 27 mmol/L (21-32) Anion Gap 9 (6-14) Blood Urea Nitrogen 24 mg/dL (7-20) Creatinine 1.3 mg/dL (0.6-1.0) Estimated GFR (Cockcroft-Gault) 49.6 Glucose Level 87 mg/dL (70-99) Calcium Level 8.6 mg/dL (8.5-10.1) Total Bilirubin 0.8 mg/dL (0.2-1.0) Direct Bilirubin 0.3 mg/dL (0.0-0.2) Aspartate Amino Transf (AST/SGOT) 47 U/L (15-37) Alanine Aminotransferase (ALT/SGPT) 47 U/L (14-59) Alkaline Phosphatase 62 U/L (46-116) Total Protein 7.4 g/dL (6.4-8.2) Albumin 3.4 g/dL (3.4-5.0) Lipase 131 U/L (73-393) Urine Collection Type U cath Urine Color Yellow Urine Clarity Clear Urine pH 7.0 Urine Specific [place] 1.015 Urine Protein Negative mg/dL (NEG-TRACE) Urine Glucose (UA) Negative mg/dL (NEG) Urine Ketones (Stick) Negative mg/dL (NEG) Urine Blood Negative (NEG) Urine Nitrite Negative (NEG) Urine Bilirubin Negative (NEG) Urine Urobilinogen Dipstick 1.0 mg/dL (0.2 mg/dL) Urine Leukocyte Esterase Negative (NEG) Urine RBC 0 /HPF (0-2) Urine WBC 0 /HPF (0-4) Urine Squamous Epithelial Cells Occ /LPF Urine Bacteria 0 /HPF (0-FEW) Assessment and Plan Assessmemt and Plan Problems Medical Problems: (1) Abdominal pain Status: Acute (2) Flank pain Status: Acute Comment Review of Relevant I have reviewed the following items sherman (where applicable) has been applied. Labs Laboratory Tests Test 06/30/18 11:41 06/30/18 12:05 White Blood Count 5.1 x10^3/uL (4.0-11.0) Red Blood Count 3.62 x10^6/uL (3.50-5.40) Hemoglobin 11.8 g/dL (12.0-15.5) Hematocrit 35.3 % (36.0-47.0) Mean Corpuscular Volume 98 fL (79-100) Mean Corpuscular Hemoglobin 33 pg (25-35) Mean Corpuscular Hemoglobin Concent 34 g/dL (31-37) Red Cell Distribution Width 13.9 % (11.5-14.5) Platelet Count 125 x10^3/uL (140-400) Neutrophils (%) (Auto) 62 % (31-73) Lymphocytes (%) (Auto) 24 % (24-48) Monocytes (%) (Auto) 12 % (0-9) Eosinophils (%) (Auto) 1 % (0-3) Basophils (%) (Auto) 1 % (0-3) Neutrophils # (Auto) 3.2 x10^3uL (1.8-7.7) Lymphocytes # (Auto) 1.2 x10^3/uL (1.0-4.8) Monocytes # (Auto) 0.6 x10^3/uL (0.0-1.1) Eosinophils # (Auto) 0.1 x10^3/uL (0.0-0.7) Basophils # (Auto) 0.1 x10^3/uL (0.0-0.2) Prothrombin Time 22.3 SEC (11.7-14.0) Prothromb Time International Ratio 2.0 (0.8-1.1) Sodium Level 144 mmol/L (136-145) Potassium Level 4.1 mmol/L (3.5-5.1) Chloride Level 108 mmol/L (98-107) Carbon Dioxide Level 27 mmol/L (21-32) Anion Gap 9 (6-14) Blood Urea Nitrogen 24 mg/dL (7-20) Creatinine 1.3 mg/dL (0.6-1.0) Estimated GFR (Cockcroft-Gault) 49.6 Glucose Level 87 mg/dL (70-99) Calcium Level 8.6 mg/dL (8.5-10.1) Total Bilirubin 0.8 mg/dL (0.2-1.0) Direct Bilirubin 0.3 mg/dL (0.0-0.2) Aspartate Amino Transf (AST/SGOT) 47 U/L (15-37) Alanine Aminotransferase (ALT/SGPT) 47 U/L (14-59) Alkaline Phosphatase 62 U/L (46-116) Total Protein 7.4 g/dL (6.4-8.2) Albumin 3.4 g/dL (3.4-5.0) Lipase 131 U/L (73-393) Urine Collection Type U cath Urine Color Yellow Urine Clarity Clear Urine pH 7.0 Urine Specific [place] 1.015 Urine Protein Negative mg/dL (NEG-TRACE) Urine Glucose (UA) Negative mg/dL (NEG) Urine Ketones (Stick) Negative mg/dL (NEG) Urine Blood Negative (NEG) Urine Nitrite Negative (NEG) Urine Bilirubin Negative (NEG) Urine Urobilinogen Dipstick 1.0 mg/dL (0.2 mg/dL) Urine Leukocyte Esterase Negative (NEG) Urine RBC 0 /HPF (0-2) Urine WBC 0 /HPF (0-4) Urine Squamous Epithelial Cells Occ /LPF Urine Bacteria 0 /HPF (0-FEW) Laboratory Tests Test 06/30/18 11:41 06/30/18 12:05 White Blood Count 5.1 x10^3/uL (4.0-11.0) Red Blood Count 3.62 x10^6/uL (3.50-5.40) Hemoglobin 11.8 g/dL (12.0-15.5) Hematocrit 35.3 % (36.0-47.0) Mean Corpuscular Volume 98 fL (79-100) Mean Corpuscular Hemoglobin 33 pg (25-35) Mean Corpuscular Hemoglobin Concent 34 g/dL (31-37) Red Cell Distribution Width 13.9 % (11.5-14.5) Platelet Count 125 x10^3/uL (140-400) Neutrophils (%) (Auto) 62 % (31-73) Lymphocytes (%) (Auto) 24 % (24-48) Monocytes (%) (Auto) 12 % (0-9) Eosinophils (%) (Auto) 1 % (0-3) Basophils (%) (Auto) 1 % (0-3) Neutrophils # (Auto) 3.2 x10^3uL (1.8-7.7) Lymphocytes # (Auto) 1.2 x10^3/uL (1.0-4.8) Monocytes # (Auto) 0.6 x10^3/uL (0.0-1.1) Eosinophils # (Auto) 0.1 x10^3/uL (0.0-0.7) Basophils # (Auto) 0.1 x10^3/uL (0.0-0.2) Prothrombin Time 22.3 SEC (11.7-14.0) Prothromb Time International Ratio 2.0 (0.8-1.1) Sodium Level 144 mmol/L (136-145) Potassium Level 4.1 mmol/L (3.5-5.1) Chloride Level 108 mmol/L (98-107) Carbon Dioxide Level 27 mmol/L (21-32) Anion Gap 9 (6-14) Blood Urea Nitrogen 24 mg/dL (7-20) Creatinine 1.3 mg/dL (0.6-1.0) Estimated GFR (Cockcroft-Gault) 49.6 Glucose Level 87 mg/dL (70-99) Calcium Level 8.6 mg/dL (8.5-10.1) Total Bilirubin 0.8 mg/dL (0.2-1.0) Direct Bilirubin 0.3 mg/dL (0.0-0.2) Aspartate Amino Transf (AST/SGOT) 47 U/L (15-37) Alanine Aminotransferase (ALT/SGPT) 47 U/L (14-59) Alkaline Phosphatase 62 U/L (46-116) Total Protein 7.4 g/dL (6.4-8.2) Albumin 3.4 g/dL (3.4-5.0) Lipase 131 U/L (73-393) Urine Collection Type U cath Urine Color Yellow Urine Clarity Clear Urine pH 7.0 Urine Specific [place] 1.015 Urine Protein Negative mg/dL (NEG-TRACE) Urine Glucose (UA) Negative mg/dL (NEG) Urine Ketones (Stick) Negative mg/dL (NEG) Urine Blood Negative (NEG) Urine Nitrite Negative (NEG) Urine Bilirubin Negative (NEG) Urine Urobilinogen Dipstick 1.0 mg/dL (0.2 mg/dL) Urine Leukocyte Esterase Negative (NEG) Urine RBC 0 /HPF (0-2) Urine WBC 0 /HPF (0-4) Urine Squamous Epithelial Cells Occ /LPF Urine Bacteria 0 /HPF (0-FEW) Medications Current Medications Morphine Sulfate (Morphine Sulfate) 4 mg 1X ONCE IV Last administered on at 11:44; Start 06/30/18 at 11:15; Stop 06/30/18 at 11:16; Status DC Sodium Chloride 500 ml @ 500 mls/hr 1X ONCE IV Last administered on at 12:53; Start 06/30/18 at 12:30; Stop 06/30/18 at 13:29; Status DC Morphine Sulfate (Morphine Sulfate) 4 mg 1X ONCE IV Last administered on at 13:54; Start 06/30/18 at 13:45; Stop 06/30/18 at 13:50; Status DC Ondansetron HCl (Zofran) 4 mg PRN Q8HRS PRN IV NAUSEA/VOMITING; Start 06/30/18 at 15:00; Stop 07/01/18 at 14:59 Morphine Sulfate (Morphine Sulfate) 4 mg PRN Q2HR PRN IV PAIN Last administered on 07/01/18at 10:25; Start 06/30/18 at 15:00; Stop 07/01/18 at 14:59 Sodium Chloride 1,000 ml @ 65 mls/hr [id number] IV Last administered on at 10:25; Start 06/30/18 at 14:46; Stop 07/01/18 at 14:45 Ceftriaxone Sodium 1 gm/ Dextrose 50 ml @ 100 mls/hr Q24H IV ; Start 06/30/18 at 15:15; Stop 06/30/18 at 15:43; Status DC Acetaminophen (Tylenol) 650 mg PRN Q6HRS PRN PO FEVER; Start 06/30/18 at 15:15 Ondansetron HCl (Zofran) 4 mg PRN Q6HRS PRN IV NAUSEA/VOMITING; Start 06/30/18 at 15:15 Morphine Sulfate (Morphine Sulfate) 2 mg PRN Q2HR PRN IV MODERATE TO SEVERE PAIN; Start 06/30/18 at 15:15 Tramadol HCl (Ultram) 50 mg PRN Q6HRS PRN PO MILD TO MODERATE PAIN; Start 06/30 at 15:15 Docusate Sodium (Colace) 100 mg PRN DAILY PRN PO CONSTIPATION; Start 06/30/18 at 15:15 Labetalol HCl (Normodyne Iv Push) 20 mg PRN Q2HR PRN IVP HYPERTENSION, SEE COMMENTS; Start 06/30/18 at 15:15 Morphine Sulfate (Morphine Sulfate) 4 mg PRN Q2HR PRN IV SEVERE PAIN; Start at 15:15 Enoxaparin Sodium (Lovenox 30mg Syringe) 30 mg Q24H SQ ; Start 06/30/18 at 16:00 ; Stop 06/30/18 at 18:50; Status DC Ceftriaxone Sodium 50 ml @ 100 mls/hr 1X ONCE IV ; Start 06/30/18 at 15:30; Stop 06/30/18 at 15:59; Status Cancel Ceftriaxone Sodium 1 gm/ Dextrose 50 ml @ 100 mls/hr Q24H IV ; Start 06/30/18 at 15:45; Status UNV Ceftriaxone Sodium (Rocephin) 1 gm Q24H IVP Last administered on 06/30/18at 17: 27; Start 06/30/18 at 16:00 Enoxaparin Sodium (Lovenox Per Pharmacy Prophylaxis Dosing) 1 each PRN DAILY PRN MC SEE COMMENTS; Start 06/30/18 at 18:45; Status Cancel Docusate Sodium (Colace) 100 mg BID PO Last administered on 07/01/18at 08:46; Start 06/30/18 at 21:00 Furosemide (Lasix) 40 mg DAILY PO ; Start 07/01/18 at 09:00; Stop 07/01/18 at 09 :00; Status DC Oxycodone/ Acetaminophen (Percocet 5/325) 1 tab PRN Q4HRS PRN PO SEVERE PAIN; Start 06/30/18 at 18:45 Zolpidem Tartrate (Ambien) 5 mg QHS PO Last administered on 06/30/18at 20:53; Start 06/30/18 at 21:00 Zolpidem Tartrate (Ambien) 5 mg PRN QHS PRN PO INSOMNIA; Start 06/30/18 at 19: 00 Enoxaparin Sodium (Lovenox 40mg Syringe) 40 mg Q24H SQ ; Start 06/30/18 at 19:00 ; Status Cancel Enoxaparin Sodium (Lovenox Per Pharmacy Treatment Dosing) 1 each PRN DAILY PRN MC SEE COMMENTS; Start 07/01/18 at 09:00 Enoxaparin Sodium (Lovenox 60mg Syringe) 60 mg Q12HR SQ Last administered on at 08:48; Start 07/01/18 at 09:00 Info (Anti-Coagulation Monitoring By Pharmacy) 1 each PRN DAILY PRN MC SEE COMMENTS; Start 06/30/18 at 19:15 Active Scripts Active Oxycodone-Acetaminophen 5-325 (Oxycodone Hcl/Acetaminophen) 1 Each Tablet 1 Tab PO PRN Q4HRS PRN Reported Furosemide 40 Mg Tablet 1 Tab PO DAILY Ambien (Zolpidem Tartrate) 10 Mg Tablet 1 Tab PO QHS Warfarin Sodium 3 Mg Tablet 1 Tab PO QSA Warfarin Sodium 3 Mg Tablet 1 Tab PO QTU Warfarin Sodium 2 Mg Tablet 1 Tab PO QSU Warfarin Sodium 2 Mg Tablet 2 Mg PO QMWF Hydrochlorothiazide Tablet (Hydrochlorothiazide) 25 Mg Tablet 25 Mg PO Colace (Docusate Sodium) 100 Mg Capsule 100 Mg PO Lexapro (Escitalopram Oxalate) 20 Mg Tablet 20 Mg PO Simvastatin 20 Mg Tablet 20 Mg PO Levothyroxine Sodium 50 Mcg Tablet 50 Mcg PO Vitals/I & O Vital Sign - Last 24 Hours 06/30/18 06/30/18 06/30/18 06/30/18 11:05 11:30 11:44 12:00 Temp 98.9 98.9 Pulse 66 64 60 Resp 16 24 18 25 B/P (MAP) 156/72 (100) 136/65 (88) 134/65 (88) Pulse Ox 16 96 95 92 O2 Delivery Room Air Room Air Room Air Room Air 06/30/18 06/30/18 06/30/18 06/30/18 13:00 13:30 13:54 14:00 Pulse 60 60 60 Resp 15 12 16 18 B/P (MAP) 135/71 (92) 152/75 (100) 136/66 (89) Pulse Ox 91 94 95 90 O2 Delivery Room Air Room Air Room Air Room Air 06/30/18 06/30/18 06/30/18 06/30/18 14:30 15:00 15:30 15:45 Temp 97.8 97.8 Pulse 66 60 Resp 25 18 20 B/P (MAP) 138/71 (93) 154/71 (98) Pulse Ox 94 95 96 O2 Delivery Room Air Room Air Room Air Room Air 06/30/18 06/30/18 06/30/18 06/30/18 16:20 17:28 19:00 20:00 Temp 99.2 99.2 Pulse 59 Resp 18 B/P (MAP) 135/74 (94) Pulse Ox 95 O2 Delivery Room Air Room Air Room Air Room Air 06/30/18 07/01/18 07/01/18 07/01/18 23:00 03:00 07:00 07:30 Temp 99.2 99.0 98.4 99.2 99.0 98.4 Pulse 60 60 61 Resp 18 18 18 B/P (MAP) 130/69 (89) 150/81 (104) 145/77 (99) Pulse Ox 94 93 93 O2 Delivery Room Air Room Air Room Air Room Air 07/01/18 07/01/18 07/01/18 07:43 08:45 10:25 O2 Delivery Room Air Room Air Room Air Intake and Output 06/30/18 06/30/18 07/01/18 15:00 23:00 07:00 Intake Total 540 ml 480 ml Balance 540 ml 480 ml ASHELY DE SOUZA MD Jul 01, 2018 10:38
--- NOTE | 2018-07-01 10:47 | PDOC2 ---
MARY ROOT TILE EDGER 07/01/18 1047: CARDIAC CONSULT DATE OF CONSULT Date of Consult DATE: 07/01/18 TIME: 10:24 REASON FOR CONSULT Reason for Consult: AICD, needs lead fix next week REFERRING PHYSICIAN Referring Physician: Thony SOURCE Source: Chart review, Patient HISTORY OF PRESENT ILLNESS HISTORY OF PRESENT ILLNESS This is a pleasant 68 yo female admitted for complains of abdominal pain and RLE pain. Reports that she has been having right side abd and flank pain in the last 3 days associated with diarrhea. Also verbalized unable to ambulate very well citing that everytime she puts wt on her right foot it sends a shooting pain from her lower back and vice versa. Both of her legs are symmetrically and well distributed warmness and with very palpable DP. Denies any wound or past PAD nor VTE. 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 Denies any CP or SOA. Back in March she was having dizzy spells and at times passing out. She was seen by Dr. Guido and was told that her right atrial lead maybe malfunctioning. She then continued to have some dizzy spell symptoms so her AICD has been adjusted raising her HR baseline at times. It is unclear what adjustment has been done but it is clear on her notes that right atrial lead has been malfunctioning prompting Dr. Guido to finally schedule her for lead replacement on 07/07/2018. She has been taken off her coumadin and has been transitioned to lovenox. She used to follow with Dr. Shea in but has now been switched to Dr. Watson since Dr. Shea retired. PAST MEDICAL HISTORY Past Medical History Cardiovascular: HTN, Hyperlipidemia, Valve insufficiency (s/p MVR on coumadin therapy ), Prior NICM with EF 15-20% well recovered to 55% per last TTE Pulmonary: No pertinent hx CENTRAL NERVOUS SYSTEM: Other (no pertinent hx ) GI: hemorrhoids, GERD Heme/Onc: Chronic coumadin therapy Hepatobiliary: No pertinent hx Psych: No pertinent hx Musculoskeletal: Osteoarthritis Rheumatologic: No pertinent hx Infectious disease: Hep C ENT: No pertinent hx Renal/: Chronic renal insuff Endocrine: Hypothyroidism Dermatology: No pertinent hx PAST SURGICAL HISTORY Past Surgical History: Pacemaker (AICD(st Matt)), Hysterectomy, Other ( thyroidectomy; open MVR (mechanical [employer] Matt) FAMILY HISTORY Family History: Coronary Artery Disease, Hypertension SOCIAL HISTORY Smoke: No ALCOHOL: none Drugs: None Lives: with Family CURRENT MEDICATIONS CURRENT MEDICATIONS Current Medications Medications (Trade) Dose Ordered Sig/Johnnie Route PRN Reason Start Time Stop Time Status Last Admin Dose Admin Morphine Sulfate (Morphine Sulfate) 4 mg 1X ONCE IV 06/30/18 11:15 06/30/18 11:16 DC 06/30/18 11:44 Sodium Chloride 500 ml @ 500 mls/hr 1X ONCE IV 06/30/18 12:30 06/30/18 13:29 DC 06/30/18 12:53 Morphine Sulfate (Morphine Sulfate) 4 mg 1X ONCE IV 06/30/18 13:45 06/30/18 13:50 DC 06/30/18 13:54 Morphine Sulfate (Morphine Sulfate) 4 mg PRN Q2HR PRN IV PAIN 06/30/18 15:00 07/01/18 14:59 07/01/18 07:43 Sodium Chloride 1,000 ml @ 65 mls/hr [id number] IV 06/30/18 14:46 07/01/18 14:45 06/30/18 17:30 Ceftriaxone Sodium (Rocephin) 1 gm Q24H IVP 06/30/18 16:00 06/30/18 17:27 Docusate Sodium (Colace) 100 mg BID PO 06/30/18 21:00 07/01/18 08:46 Zolpidem Tartrate (Ambien) 5 mg QHS PO 06/30/18 21:00 06/30/18 20:53 Enoxaparin Sodium (Lovenox 60mg Syringe) 60 mg Q12HR SQ 07/01/18 09:00 07/01/18 08:48 ALLERGIES ALLERGIES: Coded Allergies: codeine (Unverified Allergy, Intermediate, rash, 10/17/14) iodine (Unverified Allergy, Intermediate, Hives, Itching, 10/17/14) ROS Review of System 14 point ROS evaluated with pertinent positives noted per HPI PHYSICAL EXAM General: Alert, Oriented X3, Cooperative HEENT: Atraumatic, Mucous membr. moist/pink Lungs: Clear to auscultation, Normal air movement Heart: Regular rate (no tele), Other (3/6 systolic murmur to LLS border, audible click) Abdomen: Soft, Other (diffuse abd mild tenderness) Extremities: No cyanosis Skin: No breakdown, No significant lesion, Other (LE hyperpigmentations) Neuro: Normal speech, Sensation intact Psych/Mental Status: Mental status NL, Mood NL MUSCULOSKELETAL: Osteoarthritic changes both hands, Other (+SLR) VITALS VITALS Vital Signs Date Time Temp Pulse Resp B/P (MAP) Pulse Ox O2 Delivery O2 Flow Rate FiO2 07/01/18 08:45 Room Air 07/01/18 07:00 98.4 61 18 145/77 (99) 93 98.4 LABS Lab: Laboratory Tests Test 06/30/18 11:41 06/30/18 12:05 White Blood Count 5.1 x10^3/uL (4.0-11.0) Red Blood Count 3.62 x10^6/uL (3.50-5.40) Hemoglobin 11.8 g/dL (12.0-15.5) Hematocrit 35.3 % (36.0-47.0) Mean Corpuscular Volume 98 fL (79-100) Mean Corpuscular Hemoglobin 33 pg (25-35) Mean Corpuscular Hemoglobin Concent 34 g/dL (31-37) Red Cell Distribution Width 13.9 % (11.5-14.5) Platelet Count 125 x10^3/uL (140-400) Neutrophils (%) (Auto) 62 % (31-73) Lymphocytes (%) (Auto) 24 % (24-48) Monocytes (%) (Auto) 12 % (0-9) Eosinophils (%) (Auto) 1 % (0-3) Basophils (%) (Auto) 1 % (0-3) Neutrophils # (Auto) 3.2 x10^3uL (1.8-7.7) Lymphocytes # (Auto) 1.2 x10^3/uL (1.0-4.8) Monocytes # (Auto) 0.6 x10^3/uL (0.0-1.1) Eosinophils # (Auto) 0.1 x10^3/uL (0.0-0.7) Basophils # (Auto) 0.1 x10^3/uL (0.0-0.2) Prothrombin Time 22.3 SEC (11.7-14.0) Prothromb Time International Ratio 2.0 (0.8-1.1) Sodium Level 144 mmol/L (136-145) Potassium Level 4.1 mmol/L (3.5-5.1) Chloride Level 108 mmol/L (98-107) Carbon Dioxide Level 27 mmol/L (21-32) Anion Gap 9 (6-14) Blood Urea Nitrogen 24 mg/dL (7-20) Creatinine 1.3 mg/dL (0.6-1.0) Estimated GFR (Cockcroft-Gault) 49.6 Glucose Level 87 mg/dL (70-99) Calcium Level 8.6 mg/dL (8.5-10.1) Total Bilirubin 0.8 mg/dL (0.2-1.0) Direct Bilirubin 0.3 mg/dL (0.0-0.2) Aspartate Amino Transf (AST/SGOT) 47 U/L (15-37) Alanine Aminotransferase (ALT/SGPT) 47 U/L (14-59) Alkaline Phosphatase 62 U/L (46-116) Total Protein 7.4 g/dL (6.4-8.2) Albumin 3.4 g/dL (3.4-5.0) Lipase 131 U/L (73-393) Urine Collection Type U cath Urine Color Yellow Urine Clarity Clear Urine pH 7.0 Urine Specific [place] 1.015 Urine Protein Negative mg/dL (NEG-TRACE) Urine Glucose (UA) Negative mg/dL (NEG) Urine Ketones (Stick) Negative mg/dL (NEG) Urine Blood Negative (NEG) Urine Nitrite Negative (NEG) Urine Bilirubin Negative (NEG) Urine Urobilinogen Dipstick 1.0 mg/dL (0.2 mg/dL) Urine Leukocyte Esterase Negative (NEG) Urine RBC 0 /HPF (0-2) Urine WBC 0 /HPF (0-4) Urine Squamous Epithelial Cells Occ /LPF Urine Bacteria 0 /HPF (0-FEW) ECHOCARDIOGRAM ECHOCARDIOGRAM <Conclusion> Left ventricle systolic function is low normal. The Ejection Fraction is 50-55%. There is normal LV segmental wall motion. Tissue Doppler imaging reveals moderate left ventricular diastolic dysfunction. There is a pacemaker lead in the right ventricle. The left atrium is mildly dilated. There is a bi-leaflet (St[employer] Matt) mechanical prosthesis of the mitral valve. Doppler and Color-flow revealed mild mitral regurgitation. Doppler and Color Flow revealed mild tricuspid regurgitation. There is mild pulmonary hypertension. The PA pressure was estimated at 37 mmHg. DATE: 11/12/16 1233 ASSESSMENT/PLAN ASSESSMENT/PLAN 1. Abd pain/diarrhea: UTI? Defer to PCP 2. Suspect lumbar radiculopathy: +SLR, defer to PCP 3. AICD in situ with right atrial lead malfunction: (St Matt) placed due to past NICM No cardiac symptoms. 4. Hx of NICM: prior EF 15% well recovered from recent TTE at 55% 5. Hx of open MVR: St Matt 6. Chronic anticoagulation: with coumadin. INR at 2. 7. CKD3 Recommendations 1. Obtain cardiology office note. Will interrogate device. 2. CXR for lead placement. Place on tele monitor. 3. Coumadin on hold transitioned to lovenox per protocol in anticipation for outpt lead repair by Dr. Guido in on 07/07/2018. Addendum 1244 Presently SR per tele. Interrogation revealed likely atrial lead damaged. Few episodes of SVTs otherwise no significant arrhythmias. Base rate 60 bpm Battery life 3.5 yrs. Rate sensor, PVARP, and AV delay was adjusted per rep to prevent competitive atrial pacing. NEIL NAIR MD 07/01/18 1807: CARDIAC CONSULT ASSESSMENT/PLAN ASSESSMENT/PLAN Patient seen and examined. Agree with above nurse practitioner note with the following comments 68-year-old woman with multiple cardiac comorbidities as noted above. She's on chronic anticoagulation related to a mechanical mitral valve. Peculiarly she's not on any significant cardiac medications at this time. Likely needs a heart failure regimen. Will defer this to her primary production reproduction manager. No obvious cardiac abnormalities noted. CT scan of the abdomen is unremarkable. Supportive care for now. Okay to discharge from a cardiac standpoint. Although her INR is decreased she's currently on Lovenox therapy and we would continue this. She is due for extraction with atrial lead replacement next week through . AMRY ROOT APRN Jul 01, 2018 10:47 NEIL NAIR MD Jul 01, 2018 18:07
[2018-07-01 11:00] VITALS: BP 139/75
--- NOTE | 2018-07-01 12:27 | RAD ---
Portable chest, 07/01/2018: HISTORY: Check pacing lead placement Comparison is made to a study from 04/27/2016. There has been a previous median sternotomy. A cardiac valvular prosthesis is in place. A left-sided transvenous pacing device is in place with the tip of one lead projected over the right ventricle. The tip of the other lead is projected over the superolateral aspect of the right atrium. These leads appear unchanged. The heart is at the upper limits of normal in size. The pulmonary vascularity is normal. No pulmonary infiltrate is seen. There is no evidence of pleural fluid. IMPRESSION: No acute cardiopulmonary abnormality is detected with no significant change since 04/27/2016. Electronically signed by: Iam Yost MD (07/01/2018 12:24 PM) [facility]
[2018-07-01 15:00] VITALS: BP 170/91
--- NOTE | 2018-07-01 15:21 | RAD ---
CT of the lumbar spine-reconstructions, 07/01/2018: HISTORY: Low back and right flank pain Multiplanar reconstructions of the lumbar spine were produced from the data set from the noncontrast CT abdomen and pelvis study of 06/30/2017. No fracture or destructive bony lesion is seen. The intervertebral disc spaces are fairly well preserved. There are mild degenerative changes involving scattered facet joints in the lower lumbar spine. At L3-4 there is mild posterior marginal spurring. There are mild degenerative changes involving the facet joints with moderate calcific thickening of the posterior ligaments at this level. The combination of findings is causing mild to moderate central spinal stenosis and mild bilateral foraminal narrowing at this level. At L4-5 there is moderate posterior disc bulging, more so on the left. The posterior disc margins are not clearly defined due to artifacts. There is mild posterior ligamentous thickening. The combination of findings is causing mild central spinal stenosis in a triangular configuration and mild bilateral foraminal narrowing. At L5-S1 there is normal posterior disc bulging at the midline. There are moderate degenerative changes involving the facet joints. The central spinal canal and neural foramina are well-maintained. IMPRESSION: 1. Moderate scattered degenerative changes in the lower lumbar spine with mild to moderate central spinal stenosis at L3-4 and to a lesser degree at L4-5. 2. No acute bony abnormality is detected. PQRS Compliance Statement: One or more of the following individualized dose reduction techniques were utilized for this examination: 1. Automated exposure control 2. Adjustment of the mA and/or kV according to patient size 3. Use of iterative reconstruction technique Electronically signed by: Iam Yost MD (07/01/2018 3:18 PM) [facility]
[2018-07-01] MEDS: hydroCHLOROthiazide 25 MG TABLET PO SCH ×2 (15:58→17:58)
[2018-07-01] MEDS: FLUoxetine HCL 20 MG CAPSULE PO SCH (15:58)
[2018-07-01] MEDS: cefTRIAXone IV Push 1 GM VIAL. IVP SCH (15:59)
[2018-07-01] MEDS ORDERED: WARFARIN SODIUM 2 MG PO SCH (16:00)
[2018-07-01] MEDS: ANTI-COAG MONITOR BY PHARMACY. MC PRN (16:12)
[2018-07-01] MEDS: LIDOCAINE (700MG/PATCH) PATCH. TD SCH (17:58)
[2018-07-01] MEDS: PANTOPRAZOLE 40 MG TABLET.DR. PO SCH (17:58)
[2018-07-01] MEDS ORDERED: methylPREDNISolone ACETATE 40 MG/ML VIAL. IM ONE (18:00)
[2018-07-01] MEDS: predniSONE 10 MG TABLET PO SCH (18:00)
[2018-07-01] MEDS ORDERED: BUPIVACAINE MPF 0.25% 10 ML VIAL. IJ ONE (18:00)
[2018-07-01 19:00] VITALS: BP 147/76
[2018-07-01] MEDS: LACTOBACILLUS RHAMNOSUS GG 1 CAPSULE. PO SCH (20:19)
[2018-07-01] MEDS: ZOLPIDEM 5 MG TABLET. PO SCH (20:20)
[2018-07-01] MEDS: oxyCODONE/APAP 5/325 1 TAB TABLET PO PRN (20:20)
[2018-07-01] MEDS: tiZANidine 4 MG TABLET. PO SCH (22:04)
[2018-07-01] MEDS: ZOLPIDEM 5 MG TABLET. PO PRN (22:07)
[2018-07-01 22:37] VITALS: BP 124/83
[2018-07-02] MEDS: oxyCODONE/APAP 5/325 1 TAB TABLET PO PRN ×2 (02:48→08:23)
--- NOTE | 2018-07-02 02:53 | CONS ---
DATE OF CONSULTATION: 06/30/2018 ATTENDING PHYSICIAN: Dr. Bhandari. The patient was seen at the request of Dr. Bhandari for rehab evaluation. HISTORY OF PRESENT ILLNESS: This is a 68-year-old right-handed female admitted on 06/30/2018 with right flank pain with radiation to her right lower extremity that started 2 days ago without any specific injury. The patient denies any chronic lower back pain. The patient admits pain disturbs her sleep and interfering with her ability to get up and move. The patient denies any trouble with her bowel or bladder control or any relation of pain with her food intake. The patient with known coronary artery disease, hypertension, hyperlipidemia, chronic renal insufficiency, hypothyroidism, status post mitral valve prolapse, coronary artery bypass graft, mitral valve replacement, left foot and thyroid surgery. FAMILY HISTORY: Coronary artery disease, diabetes and hypertension. ALLERGIES: SHE IS KNOWN ALLERGIC TO CODEINE AND IODINE. DIAGNOSTICS STUDIES: The patient since admission had radiological studies including CT scan of the abdomen and pelvis, which revealed minimal fat stranding identified about right kidney. Correlate for urinary tract infection. No evidence of intrarenal collecting system calculi, cholecystectomy changes and mild degenerative changes in the lumbar spine. Small fat and omentum containing umbilical hernia. Chest x-ray, no acute abnormalities. PHYSICAL EXAMINATION: Today revealed a middle-aged female. She is in moderate distress, alert, oriented to time, place, person and circumstance and she is protecting her lower back and right lower extremity. She had tenderness to palpation over right thoracic and lumbar paraspinal muscles extending over to sacral joint area and gluteal muscles, painful limited movements of thoracolumbar spine and straight leg raising test is negative bilaterally, but she is protecting her right hip. She had equal perception of touch and pinprick sensation bilaterally. Deep tendon reflexes are 2+ and symmetrical and she had overall 5/5 grade muscle strength. She is having significant pain in rolling over to the side. I have not tested her transfers or ambulation skills at this time. ASSESSMENT: A middle-aged female with subacute thoracolumbar sprain with right lumbar radiculitis and no clinical evidence of ongoing lumbar radiculopathy. Coronary artery disease, hypertension, hyperlipidemia, status post coronary artery bypass graft and mitral valve surgery, chronic renal insufficiency and hypothyroidism. RECOMMENDATIONS: At her request, I have injected painful right lumbar paraspinal muscle trigger points under aseptic skin technique using Marcaine and Depo-Medrol solution about 2 mL of 0.25% Marcaine solution mixed with 1 mL of 40 mg per 1 mL Depo-Medrol solution, to start her on prednisone by mouth and Protonix to help protect her stomach and to start her on tizanidine for muscle spasm and ask physical therapy to see her to try her with an abdominal binder and lumbar corset and to get her up as tolerated and home when medically stable in the next day or so. Dr. Carlson and Dr. Bhandari, I appreciate asking me to participate in the care of this interesting patient. I will be glad to follow her with you as needed for her rehabilitation. STEPHANIE MERCEDES MD DR: AMBER/refugio JOB#: [id number] / [id number]
[2018-07-02 03:00] VITALS: BP 112/69
[2018-07-02 04:29] LABS: CREATININE 1.1 mg/dL (0.6-1.0); GFR 60.1
[2018-07-02] MEDS: tiZANidine 4 MG TABLET. PO SCH ×3 (06:17→22:00)
[2018-07-02] MEDS: LEVOTHYROXINE 50 MCG TABLET PO SCH (06:17)
[2018-07-02] MEDS: PATCH REMOVAL. MC SCH ×2 (06:18→20:00)
[2018-07-02 07:00] VITALS: BP 131/77
[2018-07-02] MEDS: FLUoxetine HCL 20 MG CAPSULE PO SCH (08:22)
[2018-07-02] MEDS: DOCUSATE SODIUM 100 MG CAPSULE. PO SCH ×2 (08:22→19:55)
[2018-07-02] MEDS: PANTOPRAZOLE 40 MG TABLET.DR. PO SCH (08:22)
[2018-07-02] MEDS: LACTOBACILLUS RHAMNOSUS GG 1 CAPSULE. PO SCH ×2 (08:22→19:55)
[2018-07-02] MEDS: predniSONE 10 MG TABLET PO SCH (08:23)
[2018-07-02] MEDS: LIDOCAINE (700MG/PATCH) PATCH. TD SCH (08:23)
--- NOTE | 2018-07-02 09:02 | PDOC ---
PROGRESS NOTES Subjective Subjective She feels less pain. Objective Objective Vital Signs Date Time Temp Pulse Resp B/P (MAP) Pulse Ox O2 Delivery O2 Flow Rate FiO2 07/02/18 08:23 Room Air 07/02/18 07:00 97.9 68 12 131/77 (95) 97 97.9 Intake and Output 07/02/18 07:00 Intake Total 1240 ml Balance 1240 ml Intake Oral 240 ml IV Total 1000 ml # Voids 7 Physical Exam Physical Exam She is alert and lying supine in bed protecting her low back and she continues with pain limiting her lumbar spine ROM and her mobility. Assessment Assessment Problems Medical Problems: (1) Abdominal pain Status: Acute (2) Flank pain Status: Acute Plan Plan of Care To continue physical therapy follow up and to get her up as tolerated. Comment Review of Relevant I have reviewed the following items sherman (where applicable) has been applied. Labs Laboratory Tests Test 06/30/18 11:41 06/30/18 12:05 07/02/18 03:15 White Blood Count 5.1 x10^3/uL (4.0-11.0) Red Blood Count 3.62 x10^6/uL (3.50-5.40) Hemoglobin 11.8 g/dL (12.0-15.5) Hematocrit 35.3 % (36.0-47.0) Mean Corpuscular Volume 98 fL (79-100) Mean Corpuscular Hemoglobin 33 pg (25-35) Mean Corpuscular Hemoglobin Concent 34 g/dL (31-37) Red Cell Distribution Width 13.9 % (11.5-14.5) Platelet Count 125 x10^3/uL (140-400) 117 x10^3/uL (140-400) Neutrophils (%) (Auto) 62 % (31-73) Lymphocytes (%) (Auto) 24 % (24-48) Monocytes (%) (Auto) 12 % (0-9) Eosinophils (%) (Auto) 1 % (0-3) Basophils (%) (Auto) 1 % (0-3) Neutrophils # (Auto) 3.2 x10^3uL (1.8-7.7) Lymphocytes # (Auto) 1.2 x10^3/uL (1.0-4.8) Monocytes # (Auto) 0.6 x10^3/uL (0.0-1.1) Eosinophils # (Auto) 0.1 x10^3/uL (0.0-0.7) Basophils # (Auto) 0.1 x10^3/uL (0.0-0.2) Prothrombin Time 22.3 SEC (11.7-14.0) Prothromb Time International Ratio 2.0 (0.8-1.1) Sodium Level 144 mmol/L (136-145) Potassium Level 4.1 mmol/L (3.5-5.1) Chloride Level 108 mmol/L (98-107) Carbon Dioxide Level 27 mmol/L (21-32) Anion Gap 9 (6-14) Blood Urea Nitrogen 24 mg/dL (7-20) Creatinine 1.3 mg/dL (0.6-1.0) 1.1 mg/dL (0.6-1.0) Estimated GFR (Cockcroft-Gault) 49.6 60.1 Glucose Level 87 mg/dL (70-99) Calcium Level 8.6 mg/dL (8.5-10.1) Total Bilirubin 0.8 mg/dL (0.2-1.0) Direct Bilirubin 0.3 mg/dL (0.0-0.2) Aspartate Amino Transf (AST/SGOT) 47 U/L (15-37) Alanine Aminotransferase (ALT/SGPT) 47 U/L (14-59) Alkaline Phosphatase 62 U/L (46-116) Total Protein 7.4 g/dL (6.4-8.2) Albumin 3.4 g/dL (3.4-5.0) Lipase 131 U/L (73-393) Urine Collection Type U cath Urine Color Yellow Urine Clarity Clear Urine pH 7.0 Urine Specific [place] 1.015 Urine Protein Negative mg/dL (NEG-TRACE) Urine Glucose (UA) Negative mg/dL (NEG) Urine Ketones (Stick) Negative mg/dL (NEG) Urine Blood Negative (NEG) Urine Nitrite Negative (NEG) Urine Bilirubin Negative (NEG) Urine Urobilinogen Dipstick 1.0 mg/dL (0.2 mg/dL) Urine Leukocyte Esterase Negative (NEG) Urine RBC 0 /HPF (0-2) Urine WBC 0 /HPF (0-4) Urine Squamous Epithelial Cells Occ /LPF Urine Bacteria 0 /HPF (0-FEW) Laboratory Tests Test 07/02/18 03:15 Platelet Count 117 x10^3/uL (140-400) Creatinine 1.1 mg/dL (0.6-1.0) Estimated GFR (Cockcroft-Gault) 60.1 Microbiology 06/30/18 Blood Culture - Preliminary, Resulted NO GROWTH AFTER 1 DAY Medications Current Medications Morphine Sulfate (Morphine Sulfate) 4 mg 1X ONCE IV Last administered on at 11:44; Start 06/30/18 at 11:15; Stop 06/30/18 at 11:16; Status DC Sodium Chloride 500 ml @ 500 mls/hr 1X ONCE IV Last administered on at 12:53; Start 06/30/18 at 12:30; Stop 06/30/18 at 13:29; Status DC Morphine Sulfate (Morphine Sulfate) 4 mg 1X ONCE IV Last administered on at 13:54; Start 06/30/18 at 13:45; Stop 06/30/18 at 13:50; Status DC Ondansetron HCl (Zofran) 4 mg PRN Q8HRS PRN IV NAUSEA/VOMITING; Start 06/30/18 at 15:00; Stop 07/01/18 at 14:59; Status DC Morphine Sulfate (Morphine Sulfate) 4 mg PRN Q2HR PRN IV PAIN Last administered on 07/01/18at 14:51; Start 06/30/18 at 15:00; Stop 07/01/18 at 14:59 ; Status DC Sodium Chloride 1,000 ml @ 65 mls/hr [id number] IV Last administered on at 10:25; Start 06/30/18 at 14:46; Stop 07/01/18 at 14:45; Status DC Ceftriaxone Sodium 1 gm/ Dextrose 50 ml @ 100 mls/hr Q24H IV ; Start 06/30/18 at 15:15; Stop 06/30/18 at 15:43; Status DC Acetaminophen (Tylenol) 650 mg PRN Q6HRS PRN PO FEVER; Start 06/30/18 at 15:15 Ondansetron HCl (Zofran) 4 mg PRN Q6HRS PRN IV NAUSEA/VOMITING; Start 06/30/18 at 15:15 Morphine Sulfate (Morphine Sulfate) 2 mg PRN Q2HR PRN IV MODERATE TO SEVERE PAIN; Start 06/30/18 at 15:15 Tramadol HCl (Ultram) 50 mg PRN Q6HRS PRN PO MILD TO MODERATE PAIN; Start 06/30 at 15:15 Docusate Sodium (Colace) 100 mg PRN DAILY PRN PO CONSTIPATION; Start 06/30/18 at 15:15 Labetalol HCl (Normodyne Iv Push) 20 mg PRN Q2HR PRN IVP HYPERTENSION, SEE COMMENTS; Start 06/30/18 at 15:15 Morphine Sulfate (Morphine Sulfate) 4 mg PRN Q2HR PRN IV SEVERE PAIN Last administered on 07/01/18at 17:25; Start 06/30/18 at 15:15 Enoxaparin Sodium (Lovenox 30mg Syringe) 30 mg Q24H SQ ; Start 06/30/18 at 16:00 ; Stop 06/30/18 at 18:50; Status DC Ceftriaxone Sodium 50 ml @ 100 mls/hr 1X ONCE IV ; Start 06/30/18 at 15:30; Stop 06/30/18 at 15:59; Status Cancel Ceftriaxone Sodium 1 gm/ Dextrose 50 ml @ 100 mls/hr Q24H IV ; Start 06/30/18 at 15:45; Status UNV Ceftriaxone Sodium (Rocephin) 1 gm Q24H IVP Last administered on 07/01/18at 15: 59; Start 06/30/18 at 16:00 Enoxaparin Sodium (Lovenox Per Pharmacy Prophylaxis Dosing) 1 each PRN DAILY PRN MC SEE COMMENTS; Start 06/30/18 at 18:45; Status Cancel Docusate Sodium (Colace) 100 mg BID PO Last administered on 07/02/18at 08:22; Start 06/30/18 at 21:00 Furosemide (Lasix) 40 mg DAILY PO ; Start 07/01/18 at 09:00; Stop 07/01/18 at 09 :00; Status DC Oxycodone/ Acetaminophen (Percocet 5/325) 1 tab PRN Q4HRS PRN PO SEVERE PAIN Last administered on 07/02/18at 08:23; Start 06/30/18 at 18:45 Zolpidem Tartrate (Ambien) 5 mg QHS PO Last administered on 07/01/18at 20:20; Start 06/30/18 at 21:00 Zolpidem Tartrate (Ambien) 5 mg PRN QHS PRN PO INSOMNIA Last administered on at 22:07; Start 06/30/18 at 19:00 Enoxaparin Sodium (Lovenox 40mg Syringe) 40 mg Q24H SQ ; Start 06/30/18 at 19:00 ; Status Cancel Enoxaparin Sodium (Lovenox Per Pharmacy Treatment Dosing) 1 each PRN DAILY PRN MC SEE COMMENTS; Start 07/01/18 at 09:00 Enoxaparin Sodium (Lovenox 60mg Syringe) 60 mg Q12HR SQ Last administered on at 08:24; Start 07/01/18 at 09:00 Info (Anti-Coagulation Monitoring By Pharmacy) 1 each PRN DAILY PRN MC SEE COMMENTS Last administered on 07/01/18at 16:12; Start 06/30/18 at 19:15 Lactobacillus Rhamnosus (Culturelle) 1 cap BID PO Last administered on at 08:22; Start 07/01/18 at 21:00 Hydrochlorothiazide (Hydrodiuril) 25 mg DAILY07 PO Last administered on at 17:58; Start 07/01/18 at 16:00 Non-Formulary Medication (Warfarin Sodium ) 1 tab QSU PO ; Start 07/05/18 at 16 :00; Stop 07/05/18 at 16:00; Status DC Non-Formulary Medication (Warfarin Sodium ) 2 mg QMWF PO ; Start 07/01/18 at 16: 00; Stop 07/01/18 at 16:00; Status DC Non-Formulary Medication (Warfarin Sodium ) 1 tab QSA PO ; Start 07/04/18 at 16 :00; Stop 07/04/18 at 16:00; Status DC Non-Formulary Medication (Warfarin Sodium ) 1 tab QTU PO ; Start 07/07/18 at 16 :00; Stop 07/07/18 at 16:00; Status DC Fluoxetine HCl (PROzac) 20 mg DAILY PO Last administered on 07/02/18at 08:22; Start 07/01/18 at 16:00 Levothyroxine Sodium (Synthroid) 50 mcg DAILY06 PO Last administered on at 06:17; Start 07/02/18 at 06:00 Methylprednisolone Acetate (DEPO-Medrol 40MG VIAL) 40 mg 1X ONCE IM Last administered on 07/01/18at 17:55; Start 07/01/18 at 18:00; Stop 07/01/18 at 18:01 ; Status DC Bupivacaine HCl (Sensorcaine-Mpf 0.25%) 10 ml 1X ONCE IJ Last administered on 07/01/18at 17:54; Start 07/01/18 at 18:00; Stop 07/01/18 at 18:01; Status DC Tizanidine HCl (Zanaflex) 4 mg Q8HRS PO Last administered on 07/02/18 06:17; Start 07/01/18 at 22:00 Prednisone (Prednisone) 10 mg DAILY PO Last administered on 07/02/18 08:23; Start 07/01/18 at 18:00 Pantoprazole Sodium (Protonix) 40 mg DAILYAC PO Last administered on 07/02/18 08:22; Start 07/01/18 at 18:00 Lidocaine (Lidoderm) 1 patch DAILY TD Last administered on 07/02/18 08:23; Start 07/01/18 at 18:00 Miscellaneous (Lidoderm Patch Removal) 1 ea QHS MC Last administered on 06:18; Start 07/01/18 at 21:00 Active Scripts Active Oxycodone-Acetaminophen 5-325 (Oxycodone Hcl/Acetaminophen) 1 Each Tablet 1 Tab PO PRN Q4HRS PRN Reported Furosemide 40 Mg Tablet 1 Tab PO DAILY Ambien (Zolpidem Tartrate) 10 Mg Tablet 1 Tab PO QHS Hydrochlorothiazide Tablet (Hydrochlorothiazide) 25 Mg Tablet 25 Mg PO Colace (Docusate Sodium) 100 Mg Capsule 100 Mg PO Lexapro (Escitalopram Oxalate) 20 Mg Tablet 20 Mg PO Simvastatin 20 Mg Tablet 20 Mg PO Levothyroxine Sodium 50 Mcg Tablet 50 Mcg PO Vitals/I & O Vital Sign - Last 24 Hours 07/01/18 07/01/18 07/01/18 07/01/18 10:25 11:00 12:47 14:28 Temp 98.2 98.2 Pulse 61 Resp 16 B/P (MAP) 139/75 (96) Pulse Ox 95 O2 Delivery Room Air Room Air Room Air Room Air 07/01/18 07/01/18 07/01/187/18 14:51 15:00 17:25 18:00 Temp 98.6 98.6 Pulse 65 Resp 16 B/P (MAP) 170/91 (117) Pulse Ox 95 O2 Delivery Room Air Room Air Room Air Room Air 07/01/18 07/01/18 07/01/18 07/01/18 19:00 19:30 20:20 22:37 Temp 99.0 99.3 99.0 99.3 Pulse 60 63 Resp 16 16 16 B/P (MAP) 147/76 (99) 124/83 (97) Pulse Ox 96 96 95 O2 Delivery Room Air Room Air Room Air Room Air 07/02/18 07/02/18 07/02/18 07/02/18 02:48 03:00 04:00 07:00 Temp 97.8 97.9 97.8 97.9 Pulse 60 68 Resp 15 18 15 12 B/P (MAP) 112/69 (83) 131/77 (95) Pulse Ox 95 96 96 97 O2 Delivery Room Air Room Air Room Air Room Air 07/02/18 08:23 O2 Delivery Room Air Intake and Output 07/01/18 07/01/18 07/02/18 15:00 23:00 07:00 Intake Total 1240 ml 0 ml Balance 1240 ml 0 ml STEPHANIE MERCEDES MD Jul 02, 2018 09:02
--- NOTE | 2018-07-02 10:12 | PDOC ---
PROGRESS NOTES History of Present Illness History of Present Illness Assessment/Plan Assessment/Plan rt flank pain intractable, possible pyelonephritis dddl/s Moderate scattered degenerative changes in the lower lumbar spine with mild to moderate central spinal stenosis at L3-4 and to a lesser degree at L4-5. HTN hyperlipidemia h/o CAD s/p CABG H/o MV Replacement, mechanical , on lovenox pacemaker lead malfunction hypothyroidism h/o hepatitis CKD3 PPM/ICD plan: iv ceftriaxone , UA neg, repeat UA, ucx, bcx home meds pain control DR MERCEDES FOLLOWING card consult to check ICD, lumbar ct to rule out spinal stenosis reviewed IVF for today. PT/OT Vitals Vitals Vital Signs Date Time Temp Pulse Resp B/P (MAP) Pulse Ox O2 Delivery O2 Flow Rate FiO2 07/02/18 08:23 Room Air 07/02/18 07:00 97.9 68 12 131/77 (95) 97 97.9 Physical Exam Physical Exam Physical Exam GEN.: No apparent distress. Alert and oriented. HEENT: Head is normocephalic, atraumatic NECK: Supple. LUNGS: Clear to auscultation. HEART: RRR, S1, S2 present. Peripheral pulses intact ABDOMEN: Soft, Positive bowel sounds. severe rt side abd tenderness ,no guarding or rebound. EXTREMITIES: Without any cyanosis. no edema, + bl foot pulse, limited RT LEG ROM 2/2 rt flank pain NEUROLOGIC: Normal speech, normal tone PSYCHIATRIC: Normal affect, normal mood. SKIN: No ulcerations General: Oriented X3, Cooperative, mild distress, moderate distress Heart: Regular rate, Normal S1, Normal S2 Lungs: Clear Abdomen: Normal bowel sounds, Soft, No tenderness Extremities: No clubbing, No cyanosis, No edema Skin: No breakdown, No significant lesion, Other (LE hyperpigmentations) Labs LABS Laboratory Tests Test 07/02/18 03:15 Platelet Count 117 x10^3/uL (140-400) Creatinine 1.1 mg/dL (0.6-1.0) Estimated GFR (Cockcroft-Gault) 60.1 Assessment and Plan Assessmemt and Plan Problems Medical Problems: (1) Abdominal pain Status: Acute (2) Flank pain Status: Acute Comment Review of Relevant I have reviewed the following items sherman (where applicable) has been applied. Labs Laboratory Tests Test 06/30/18 11:41 06/30/18 12:05 07/02/18 03:15 White Blood Count 5.1 x10^3/uL (4.0-11.0) Red Blood Count 3.62 x10^6/uL (3.50-5.40) Hemoglobin 11.8 g/dL (12.0-15.5) Hematocrit 35.3 % (36.0-47.0) Mean Corpuscular Volume 98 fL (79-100) Mean Corpuscular Hemoglobin 33 pg (25-35) Mean Corpuscular Hemoglobin Concent 34 g/dL (31-37) Red Cell Distribution Width 13.9 % (11.5-14.5) Platelet Count 125 x10^3/uL (140-400) 117 x10^3/uL (140-400) Neutrophils (%) (Auto) 62 % (31-73) Lymphocytes (%) (Auto) 24 % (24-48) Monocytes (%) (Auto) 12 % (0-9) Eosinophils (%) (Auto) 1 % (0-3) Basophils (%) (Auto) 1 % (0-3) Neutrophils # (Auto) 3.2 x10^3uL (1.8-7.7) Lymphocytes # (Auto) 1.2 x10^3/uL (1.0-4.8) Monocytes # (Auto) 0.6 x10^3/uL (0.0-1.1) Eosinophils # (Auto) 0.1 x10^3/uL (0.0-0.7) Basophils # (Auto) 0.1 x10^3/uL (0.0-0.2) Prothrombin Time 22.3 SEC (11.7-14.0) Prothromb Time International Ratio 2.0 (0.8-1.1) Sodium Level 144 mmol/L (136-145) Potassium Level 4.1 mmol/L (3.5-5.1) Chloride Level 108 mmol/L (98-107) Carbon Dioxide Level 27 mmol/L (21-32) Anion Gap 9 (6-14) Blood Urea Nitrogen 24 mg/dL (7-20) Creatinine 1.3 mg/dL (0.6-1.0) 1.1 mg/dL (0.6-1.0) Estimated GFR (Cockcroft-Gault) 49.6 60.1 Glucose Level 87 mg/dL (70-99) Calcium Level 8.6 mg/dL (8.5-10.1) Total Bilirubin 0.8 mg/dL (0.2-1.0) Direct Bilirubin 0.3 mg/dL (0.0-0.2) Aspartate Amino Transf (AST/SGOT) 47 U/L (15-37) Alanine Aminotransferase (ALT/SGPT) 47 U/L (14-59) Alkaline Phosphatase 62 U/L (46-116) Total Protein 7.4 g/dL (6.4-8.2) Albumin 3.4 g/dL (3.4-5.0) Lipase 131 U/L (73-393) Urine Collection Type U cath Urine Color Yellow Urine Clarity Clear Urine pH 7.0 Urine Specific [place] 1.015 Urine Protein Negative mg/dL (NEG-TRACE) Urine Glucose (UA) Negative mg/dL (NEG) Urine Ketones (Stick) Negative mg/dL (NEG) Urine Blood Negative (NEG) Urine Nitrite Negative (NEG) Urine Bilirubin Negative (NEG) Urine Urobilinogen Dipstick 1.0 mg/dL (0.2 mg/dL) Urine Leukocyte Esterase Negative (NEG) Urine RBC 0 /HPF (0-2) Urine WBC 0 /HPF (0-4) Urine Squamous Epithelial Cells Occ /LPF Urine Bacteria 0 /HPF (0-FEW) Laboratory Tests Test 07/02/18 03:15 Platelet Count 117 x10^3/uL (140-400) Creatinine 1.1 mg/dL (0.6-1.0) Estimated GFR (Cockcroft-Gault) 60.1 Microbiology 06/30/18 Blood Culture - Preliminary, Resulted NO GROWTH AFTER 1 DAY Medications Current Medications Morphine Sulfate (Morphine Sulfate) 4 mg 1X ONCE IV Last administered on at 11:44; Start 06/30/18 at 11:15; Stop 06/30/18 at 11:16; Status DC Sodium Chloride 500 ml @ 500 mls/hr 1X ONCE IV Last administered on at 12:53; Start 06/30/18 at 12:30; Stop 06/30/18 at 13:29; Status DC Morphine Sulfate (Morphine Sulfate) 4 mg 1X ONCE IV Last administered on at 13:54; Start 06/30/18 at 13:45; Stop 06/30/18 at 13:50; Status DC Ondansetron HCl (Zofran) 4 mg PRN Q8HRS PRN IV NAUSEA/VOMITING; Start 06/30/18 at 15:00; Stop 07/01/18 at 14:59; Status DC Morphine Sulfate (Morphine Sulfate) 4 mg PRN Q2HR PRN IV PAIN Last administered on 07/01/18at 14:51; Start 06/30/18 at 15:00; Stop 07/01/18 at 14:59 ; Status DC Sodium Chloride 1,000 ml @ 65 mls/hr [id number] IV Last administered on at 10:25; Start 06/30/18 at 14:46; Stop 07/01/18 at 14:45; Status DC Ceftriaxone Sodium 1 gm/ Dextrose 50 ml @ 100 mls/hr Q24H IV ; Start 06/30/18 at 15:15; Stop 06/30/18 at 15:43; Status DC Acetaminophen (Tylenol) 650 mg PRN Q6HRS PRN PO FEVER; Start 06/30/18 at 15:15 Ondansetron HCl (Zofran) 4 mg PRN Q6HRS PRN IV NAUSEA/VOMITING; Start 06/30/18 at 15:15 Morphine Sulfate (Morphine Sulfate) 2 mg PRN Q2HR PRN IV MODERATE TO SEVERE PAIN; Start 06/30/18 at 15:15 Tramadol HCl (Ultram) 50 mg PRN Q6HRS PRN PO MILD TO MODERATE PAIN; Start 06/30 at 15:15 Docusate Sodium (Colace) 100 mg PRN DAILY PRN PO CONSTIPATION; Start 06/30/18 at 15:15 Labetalol HCl (Normodyne Iv Push) 20 mg PRN Q2HR PRN IVP HYPERTENSION, SEE COMMENTS; Start 06/30/18 at 15:15 Morphine Sulfate (Morphine Sulfate) 4 mg PRN Q2HR PRN IV SEVERE PAIN Last administered on 07/01/18at 17:25; Start 06/30/18 at 15:15 Enoxaparin Sodium (Lovenox 30mg Syringe) 30 mg Q24H SQ ; Start 06/30/18 at 16:00 ; Stop 06/30/18 at 18:50; Status DC Ceftriaxone Sodium 50 ml @ 100 mls/hr 1X ONCE IV ; Start 06/30/18 at 15:30; Stop 06/30/18 at 15:59; Status Cancel Ceftriaxone Sodium 1 gm/ Dextrose 50 ml @ 100 mls/hr Q24H IV ; Start 06/30/18 at 15:45; Status UNV Ceftriaxone Sodium (Rocephin) 1 gm Q24H IVP Last administered on 07/01/18at 15: 59; Start 06/30/18 at 16:00 Enoxaparin Sodium (Lovenox Per Pharmacy Prophylaxis Dosing) 1 each PRN DAILY PRN MC SEE COMMENTS; Start 06/30/18 at 18:45; Status Cancel Docusate Sodium (Colace) 100 mg BID PO Last administered on 07/02/18at 08:22; Start 06/30/18 at 21:00 Furosemide (Lasix) 40 mg DAILY PO ; Start 07/01/18 at 09:00; Stop 07/01/18 at 09 :00; Status DC Oxycodone/ Acetaminophen (Percocet 5/325) 1 tab PRN Q4HRS PRN PO SEVERE PAIN Last administered on 07/02/18at 08:23; Start 06/30/18 at 18:45 Zolpidem Tartrate (Ambien) 5 mg QHS PO Last administered on 07/01/18at 20:20; Start 06/30/18 at 21:00 Zolpidem Tartrate (Ambien) 5 mg PRN QHS PRN PO INSOMNIA Last administered on at 22:07; Start 06/30/18 at 19:00 Enoxaparin Sodium (Lovenox 40mg Syringe) 40 mg Q24H SQ ; Start 06/30/18 at 19:00 ; Status Cancel Enoxaparin Sodium (Lovenox Per Pharmacy Treatment Dosing) 1 each PRN DAILY PRN MC SEE COMMENTS; Start 07/01/18 at 09:00 Enoxaparin Sodium (Lovenox 60mg Syringe) 60 mg Q12HR SQ Last administered on at 08:24; Start 07/01/18 at 09:00 Info (Anti-Coagulation Monitoring By Pharmacy) 1 each PRN DAILY PRN MC SEE COMMENTS Last administered on 07/01/18at 16:12; Start 06/30/18 at 19:15 Lactobacillus Rhamnosus (Culturelle) 1 cap BID PO Last administered on 08:22; Start 07/01/18 at 21:00 Hydrochlorothiazide (Hydrodiuril) 25 mg DAILY07 PO Last administered on at 17:58; Start 07/01/18 at 16:00 Non-Formulary Medication (Warfarin Sodium ) 1 tab QSU PO ; Start 07/05/18 at 16 :00; Stop 07/05/18 at 16:00; Status DC Non-Formulary Medication (Warfarin Sodium ) 2 mg QMWF PO ; Start 07/01/18 at 16: 00; Stop 07/01/18 at 16:00; Status DC Non-Formulary Medication (Warfarin Sodium ) 1 tab QSA PO ; Start 07/04/18 at 16 :00; Stop 07/04/18 at 16:00; Status DC Non-Formulary Medication (Warfarin Sodium ) 1 tab QTU PO ; Start 07/07/18 at 16 :00; Stop 07/07/18 at 16:00; Status DC Fluoxetine HCl (PROzac) 20 mg DAILY PO Last administered on 07/02/18at 08:22; Start 07/01/18 at 16:00 Levothyroxine Sodium (Synthroid) 50 mcg DAILY06 PO Last administered on 06:17; Start 07/02/18 at 06:00 Methylprednisolone Acetate (DEPO-Medrol 40MG VIAL) 40 mg 1X ONCE IM Last administered on 07/01/18at 17:55; Start 07/01/18 at 18:00; Stop 07/01/18 at 18:01 ; Status DC Bupivacaine HCl (Sensorcaine-Mpf 0.25%) 10 ml 1X ONCE IJ Last administered on 07/01/18at 17:54; Start 07/01/18 at 18:00; Stop 07/01/18 at 18:01; Status DC Tizanidine HCl (Zanaflex) 4 mg Q8HRS PO Last administered on 07/02/18 06:17; Start 07/01/18 at 22:00 Prednisone (Prednisone) 10 mg DAILY PO Last administered on 07/02/18 08:23; Start 07/01/18 at 18:00 Pantoprazole Sodium (Protonix) 40 mg DAILYAC PO Last administered on 11/8/18at 08:22; Start 07/01/18 at 18:00 Lidocaine (Lidoderm) 1 patch DAILY TD Last administered on 07/02/18 08:23; Start 07/01/18 at 18:00 Miscellaneous (Lidoderm Patch Removal) 1 ea QHS MC Last administered on at 06:18; Start 07/01/18 at 21:00 Active Scripts Active Oxycodone-Acetaminophen 5-325 (Oxycodone Hcl/Acetaminophen) 1 Each Tablet 1 Tab PO PRN Q4HRS PRN Reported Furosemide 40 Mg Tablet 1 Tab PO DAILY Ambien (Zolpidem Tartrate) 10 Mg Tablet 1 Tab PO QHS Hydrochlorothiazide Tablet (Hydrochlorothiazide) 25 Mg Tablet 25 Mg PO Colace (Docusate Sodium) 100 Mg Capsule 100 Mg PO Lexapro (Escitalopram Oxalate) 20 Mg Tablet 20 Mg PO Simvastatin 20 Mg Tablet 20 Mg PO Levothyroxine Sodium 50 Mcg Tablet 50 Mcg PO Vitals/I & O Vital Sign - Last 24 Hours 07/01/18 07/01/18 07/01/18 07/01/18 10:25 11:00 12:47 14:28 Temp 98.2 98.2 Pulse 61 Resp 16 B/P (MAP) 139/75 (96) Pulse Ox 95 O2 Delivery Room Air Room Air Room Air Room Air 07/01/18 07/01/18 07/01/18 07/01/18 14:51 15:00 17:25 18:00 Temp 98.6 98.6 Pulse 65 Resp 16 B/P (MAP) 170/91 (117) Pulse Ox 95 O2 Delivery Room Air Room Air Room Air Room Air 07/01/18 07/01/18 07/01/18 07/01/18 19:00 19:30 20:20 22:37 Temp 99.0 99.3 99.0 99.3 Pulse 60 63 Resp 16 16 16 B/P (MAP) 147/76 (99) 124/83 (97) Pulse Ox 96 96 95 O2 Delivery Room Air Room Air Room Air Room Air 07/02/18 07/02/18 07/02/18 07/02/18 02:48 03:00 04:00 07:00 Temp 97.8 97.9 97.8 97.9 Pulse 60 68 Resp 15 18 15 12 B/P (MAP) 112/69 (83) 131/77 (95) Pulse Ox 95 96 96 97 O2 Delivery Room Air Room Air Room Air Room Air 07/02/18 08:23 O2 Delivery Room Air Intake and Output 07/01/18 07/01/18 07/02/18 15:00 23:00 07:00 Intake Total 1240 ml 0 ml Balance 1240 ml 0 ml ASHLEY DE SOUZA MD Jul 02, 2018 10:12
[2018-07-02] MEDS: MORPHINE SULFATE 4 MG/ML VIAL. IV PRN ×3 (10:32→19:59)
[2018-07-02 11:00] VITALS: BP 110/70
[2018-07-02] MEDS: ANTI-COAG MONITOR BY PHARMACY. MC PRN (11:06)
[2018-07-02 15:00] VITALS: BP 139/83
[2018-07-02] MEDS: cefTRIAXone IV Push 1 GM VIAL. IVP SCH (16:30)
[2018-07-02 19:00] VITALS: BP 148/73
[2018-07-02] MEDS: ZOLPIDEM 5 MG TABLET. PO SCH (19:56)
[2018-07-02] MEDS: ZOLPIDEM 5 MG TABLET. PO PRN (21:59)
[2018-07-02 23:00] VITALS: BP 134/68
[2018-07-03] MEDS: oxyCODONE/APAP 5/325 1 TAB TABLET PO PRN (02:54)
[2018-07-03 03:00] VITALS: BP 145/77
[2018-07-03] MEDS: tiZANidine 4 MG TABLET. PO SCH ×3 (05:58→21:42)
[2018-07-03] MEDS: LEVOTHYROXINE 50 MCG TABLET PO SCH (05:58)
[2018-07-03 07:00] VITALS: BP 169/84
[2018-07-03] MEDS: LIDOCAINE (700MG/PATCH) PATCH. TD SCH ×2 (09:00→09:35)
[2018-07-03] MEDS: oxyCODONE/APAP 10/325 1 TAB TABLET PO PRN ×3 (09:27→19:58)
[2018-07-03] MEDS: DOCUSATE SODIUM 100 MG CAPSULE. PO SCH ×2 (09:33→19:58)
[2018-07-03] MEDS: hydroCHLOROthiazide 25 MG TABLET PO SCH (09:33)
[2018-07-03] MEDS: LACTOBACILLUS RHAMNOSUS GG 1 CAPSULE. PO SCH ×2 (09:33→19:58)
[2018-07-03] MEDS: MORPHINE SULFATE 2 MG/ML VIAL. IV PRN ×2 (09:33→13:15)
[2018-07-03] MEDS: FLUoxetine HCL 20 MG CAPSULE PO SCH (09:34)
[2018-07-03] MEDS: PANTOPRAZOLE 40 MG TABLET.DR. PO SCH (09:34)
[2018-07-03] MEDS: predniSONE 10 MG TABLET PO SCH (09:34)
--- NOTE | 2018-07-03 09:51 | PDOC ---
PROGRESS NOTES Subjective Subjective She continues with low back pain with radiation to right hip and thigh area. Objective Objective Vital Signs Date Time Temp Pulse Resp B/P (MAP) Pulse Ox O2 Delivery O2 Flow Rate FiO2 07/03/18 09:33 18 Room Air 07/03/18 07:00 98.0 61 169/84 (112) 96 98.0 Intake and Output 07/03/18 07:00 Intake Total 900 ml Output Total 0 ml Balance 900 ml Intake Oral 900 ml Output Urine Total 0 ml # Voids 2 Physical Exam Physical Exam She continues with tenderness to palpation over right lumbar paraspinal muscles, sacroiliac joint and she is protecting her low back and right hip with any mobility but with abdominal binder as lumbar corset,she got up and transferred to bedside chair and she is not using proper body mechanics during mobility. Assessment Assessment Problems Medical Problems: (1) Abdominal pain Status: Acute (2) Flank pain Status: Acute Plan Plan of Care To increase dose of percocet and to consider asking pain clinic for lumbar FOX. Comment Review of Relevant I have reviewed the following items sherman (where applicable) has been applied. Labs Laboratory Tests Test 07/02/18 03:15 Platelet Count 117 x10^3/uL (140-400) Creatinine 1.1 mg/dL (0.6-1.0) Estimated GFR (Cockcroft-Gault) 60.1 Microbiology 06/30/18 Blood Culture - Preliminary, Resulted NO GROWTH AFTER 2 DAYS Medications Current Medications Morphine Sulfate (Morphine Sulfate) 4 mg 1X ONCE IV Last administered on at 11:44; Start 06/30/18 at 11:15; Stop 06/30/18 at 11:16; Status DC Sodium Chloride 500 ml @ 500 mls/hr 1X ONCE IV Last administered on at 12:53; Start 06/30/18 at 12:30; Stop 06/30/18 at 13:29; Status DC Morphine Sulfate (Morphine Sulfate) 4 mg 1X ONCE IV Last administered on at 13:54; Start 06/30/18 at 13:45; Stop 06/30/18 at 13:50; Status DC Ondansetron HCl (Zofran) 4 mg PRN Q8HRS PRN IV NAUSEA/VOMITING; Start 06/30/18 at 15:00; Stop 07/01/18 at 14:59; Status DC Morphine Sulfate (Morphine Sulfate) 4 mg PRN Q2HR PRN IV PAIN Last administered on 07/01/18at 14:51; Start 06/30/18 at 15:00; Stop 07/01/18 at 14:59 ; Status DC Sodium Chloride 1,000 ml @ 65 mls/hr [id number] IV Last administered on at 10:25; Start 06/30/18 at 14:46; Stop 07/01/18 at 14:45; Status DC Ceftriaxone Sodium 1 gm/ Dextrose 50 ml @ 100 mls/hr Q24H IV ; Start 06/30/18 at 15:15; Stop 06/30/18 at 15:43; Status DC Acetaminophen (Tylenol) 650 mg PRN Q6HRS PRN PO FEVER; Start 06/30/18 at 15:15 Ondansetron HCl (Zofran) 4 mg PRN Q6HRS PRN IV NAUSEA/VOMITING; Start 06/30/18 at 15:15 Morphine Sulfate (Morphine Sulfate) 2 mg PRN Q2HR PRN IV MODERATE PAIN Last administered on 07/03/18at 09:33; Start 06/30/18 at 15:15 Tramadol HCl (Ultram) 50 mg PRN Q6HRS PRN PO MILD TO MODERATE PAIN; Start 06/30 at 15:15 Docusate Sodium (Colace) 100 mg PRN DAILY PRN PO CONSTIPATION; Start 06/30/18 at 15:15 Labetalol HCl (Normodyne Iv Push) 20 mg PRN Q2HR PRN IVP HYPERTENSION, SEE COMMENTS; Start 06/30/18 at 15:15 Morphine Sulfate (Morphine Sulfate) 4 mg PRN Q2HR PRN IV SEVERE PAIN Last administered on 07/02/18at 19:59; Start 06/30/18 at 15:15 Enoxaparin Sodium (Lovenox 30mg Syringe) 30 mg Q24H SQ ; Start 06/30/18 at 16:00 ; Stop 06/30/18 at 18:50; Status DC Ceftriaxone Sodium 50 ml @ 100 mls/hr 1X ONCE IV ; Start 06/30/18 at 15:30; Stop 06/30/18 at 15:59; Status Cancel Ceftriaxone Sodium 1 gm/ Dextrose 50 ml @ 100 mls/hr Q24H IV ; Start 06/30/18 at 15:45; Status UNV Ceftriaxone Sodium (Rocephin) 1 gm Q24H IVP Last administered on 07/02/18 16: 30; Start 06/30/18 at 16:00 Enoxaparin Sodium (Lovenox Per Pharmacy Prophylaxis Dosing) 1 each PRN DAILY PRN MC SEE COMMENTS; Start 06/30/18 at 18:45; Status Cancel Docusate Sodium (Colace) 100 mg BID PO Last administered on 07/03/18 09:33; Start 06/30/18 at 21:00 Furosemide (Lasix) 40 mg DAILY PO ; Start 07/01/18 at 09:00; Stop 07/01/18 at 09 :00; Status DC Oxycodone/ Acetaminophen (Percocet 5/325) 1 tab PRN Q4HRS PRN PO SEVERE PAIN Last administered on 07/03/18 02:54; Start 06/30/18 at 18:45; Stop 07/03/18 at 08:35; Status DC Zolpidem Tartrate (Ambien) 5 mg QHS PO Last administered on 07/02/18 19:56; Start 06/30/18 at 21:00 Zolpidem Tartrate (Ambien) 5 mg PRN QHS PRN PO INSOMNIA Last administered on 21:59; Start 06/30/18 at 19:00 Enoxaparin Sodium (Lovenox 40mg Syringe) 40 mg Q24H SQ ; Start 06/30/18 at 19:00 ; Status Cancel Enoxaparin Sodium (Lovenox Per Pharmacy Treatment Dosing) 1 each PRN DAILY PRN MC SEE COMMENTS; Start 07/01/18 at 09:00 Enoxaparin Sodium (Lovenox 60mg Syringe) 60 mg Q12HR SQ Last administered on 09:35; Start 07/01/18 at 09:00 Info (Anti-Coagulation Monitoring By Pharmacy) 1 each PRN DAILY PRN MC SEE COMMENTS Last administered on 07/02/18at 11:06; Start 06/30/18 at 19:15 Lactobacillus Rhamnosus (Culturelle) 1 cap BID PO Last administered on 09:33; Start 07/01/18 at 21:00 Hydrochlorothiazide (Hydrodiuril) 25 mg DAILY07 PO Last administered on 09:33; Start 07/01/18 at 16:00 Non-Formulary Medication (Warfarin Sodium ) 1 tab QSU PO ; Start 07/05/18 at 16 :00; Stop 07/05/18 at 16:00; Status DC Non-Formulary Medication (Warfarin Sodium ) 2 mg QMWF PO ; Start 07/01/18 at 16: 00; Stop 07/01/18 at 16:00; Status DC Non-Formulary Medication (Warfarin Sodium ) 1 tab QSA PO ; Start 07/04/18 at 16 :00; Stop 07/04/18 at 16:00; Status DC Non-Formulary Medication (Warfarin Sodium ) 1 tab QTU PO ; Start 07/07/18 at 16 :00; Stop 07/07/18 at 16:00; Status DC Fluoxetine HCl (PROzac) 20 mg DAILY PO Last administered on 07/03/18 09:34; Start 07/01/18 at 16:00 Levothyroxine Sodium (Synthroid) 50 mcg DAILY06 PO Last administered on 05:58; Start 07/02/18 at 06:00 Methylprednisolone Acetate (DEPO-Medrol 40MG VIAL) 40 mg 1X ONCE IM Last administered on 07/01/18 17:55; Start 07/01/18 at 18:00; Stop 07/01/18 at 18:01 ; Status DC Bupivacaine HCl (Sensorcaine-Mpf 0.25%) 10 ml 1X ONCE IJ Last administered on 07/01/18 17:54; Start 07/01/18 at 18:00; Stop 07/01/18 at 18:01; Status DC Tizanidine HCl (Zanaflex) 4 mg Q8HRS PO Last administered on 07/03/18 05:58; Start 07/01/18 at 22:00 Prednisone (Prednisone) 10 mg DAILY PO Last administered on 07/03/18 09:34; Start 07/01/18 at 18:00 Pantoprazole Sodium (Protonix) 40 mg DAILYAC PO Last administered on 07/03/18 09:34; Start 07/01/18 at 18:00 Lidocaine (Lidoderm) 1 patch DAILY TD Last administered on 07/03/18 09:35; Start 07/01/18 at 18:00 Miscellaneous (Lidoderm Patch Removal) 1 ea QHS MC Last administered on at 20:00; Start 07/01/18 at 21:00 Oxycodone/ Acetaminophen (Percocet 10/325) 1 tab PRN Q4HRS PRN PO Severe pain Last administered on 07/03/18at 09:27; Start 07/03/18 at 08:45 Active Scripts Active Oxycodone-Acetaminophen 5-325 (Oxycodone Hcl/Acetaminophen) 1 Each Tablet 1 Tab PO PRN Q4HRS PRN Reported Furosemide 40 Mg Tablet 1 Tab PO DAILY Ambien (Zolpidem Tartrate) 10 Mg Tablet 1 Tab PO QHS Hydrochlorothiazide Tablet (Hydrochlorothiazide) 25 Mg Tablet 25 Mg PO Colace (Docusate Sodium) 100 Mg Capsule 100 Mg PO Lexapro (Escitalopram Oxalate) 20 Mg Tablet 20 Mg PO Simvastatin 20 Mg Tablet 20 Mg PO Levothyroxine Sodium 50 Mcg Tablet 50 Mcg PO Vitals/I & O Vital Sign - Last 24 Hours 07/02/18 07/02/18 07/02/18 07/02/18 10:32 11:00 15:00 16:29 Temp 97.8 97.9 97.8 97.9 Pulse 63 62 Resp 16 16 B/P (MAP) 110/70 (83) 139/83 (101) Pulse Ox 94 97 O2 Delivery Room Air Room Air Room Air Room Air 07/02/18 07/02/18 07/02/18 07/02/18 19:00 19:59 20:00 20:30 Temp 97.9 97.9 Pulse 60 Resp 18 15 14 B/P (MAP) 148/73 (98) Pulse Ox 98 97 97 O2 Delivery Room Air Room Air Room Air Room Air 07/02/18 07/03/18 07/03/18 07/03/18 23:00 02:54 03:00 04:00 Temp 97.9 98.1 97.9 98.1 Pulse 59 61 Resp 18 14 15 B/P (MAP) 134/68 (90) 145/77 (99) Pulse Ox 96 96 97 97 O2 Delivery Room Air Room Air Room Air Room Air 07/03/18 07/03/18 07/03/18 07:00 09:27 09:33 Temp 98.0 98.0 Pulse 61 Resp 08 11 18 B/P (MAP) 169/84 (112) Pulse Ox 96 O2 Delivery Room Air Room Air Room Air Intake and Output 07/02/18 07/02/18 07/03/18 15:00 23:00 07:00 Intake Total 360 ml 540 ml Output Total 0 ml Balance 360 ml 540 ml 0 ml STEPHANIE MERCEDES MD Jul 03, 2018 09:51
[2018-07-03 11:00] VITALS: BP 152/84
[2018-07-03] MEDS: diphenhydrAMINE HCL 25 MG CAPSULE PO PRN (13:14)
--- NOTE | 2018-07-03 14:57 | PDOC ---
PROGRESS NOTES History of Present Illness History of Present Illness Assessment/Plan Assessment/Plan rt flank pain intractable, possible pyelonephritis dddl/s Moderate scattered degenerative changes in the lower lumbar spine with mild to moderate central spinal stenosis at L3-4 and to a lesser degree at L4-5. STATES PAIN REMAINS SEVERE, still needs iv morphine prn/ PT HTN hyperlipidemia h/o CAD s/p CABG H/o MV Replacement, mechanical , on lovenox pacemaker lead malfunction hypothyroidism h/o hepatitis CKD3 PPM/ICD plan: iv ceftriaxone , UA neg, repeat UA, ucx, bcx home meds pain control DR MERCEDES FOLLOWING card FOLLOWING, NEEDS LEAD REPLACEMENT SOON lumbar ct to rule out spinal stenosis reviewed . PT/OT Vitals Vitals Vital Signs Date Time Temp Pulse Resp B/P (MAP) Pulse Ox O2 Delivery O2 Flow Rate FiO2 07/03/18 14:19 18 96 Room Air 07/03/18 11:00 97.9 62 152/84 (106) 97.9 Physical Exam Physical Exam Physical Exam GEN.: No apparent distress. Alert and oriented. HEENT: Head is normocephalic, atraumatic NECK: Supple. LUNGS: Clear to auscultation. HEART: RRR, S1, S2 present. Peripheral pulses intact ABDOMEN: Soft, Positive bowel sounds. severe rt side abd tenderness ,no guarding or rebound. EXTREMITIES: Without any cyanosis. no edema, + bl foot pulse, limited RT LEG ROM 2/2 rt flank pain NEUROLOGIC: Normal speech, normal tone PSYCHIATRIC: Normal affect, normal mood. SKIN: No ulcerations General: Alert, Oriented X3, Cooperative, mild distress, moderate distress Heart: Regular rate, Normal S1, Normal S2 Lungs: Clear Abdomen: Normal bowel sounds, Soft, No tenderness Extremities: No clubbing, No cyanosis, No edema Skin: No breakdown, No significant lesion, Other (LE hyperpigmentations) Assessment and Plan Assessmemt and Plan Problems Medical Problems: (1) Abdominal pain Status: Acute (2) Flank pain Status: Acute Comment Review of Relevant I have reviewed the following items sherman (where applicable) has been applied. Labs Laboratory Tests Test 07/02/18 03:15 Platelet Count 117 x10^3/uL (140-400) Creatinine 1.1 mg/dL (0.6-1.0) Estimated GFR (Cockcroft-Gault) 60.1 Microbiology 06/30/18 Blood Culture - Preliminary, Resulted NO GROWTH AFTER 2 DAYS Medications Current Medications Morphine Sulfate (Morphine Sulfate) 4 mg 1X ONCE IV Last administered on at 11:44; Start 06/30/18 at 11:15; Stop 06/30/18 at 11:16; Status DC Sodium Chloride 500 ml @ 500 mls/hr 1X ONCE IV Last administered on at 12:53; Start 06/30/18 at 12:30; Stop 06/30/18 at 13:29; Status DC Morphine Sulfate (Morphine Sulfate) 4 mg 1X ONCE IV Last administered on at 13:54; Start 06/30/18 at 13:45; Stop 06/30/18 at 13:50; Status DC Ondansetron HCl (Zofran) 4 mg PRN Q8HRS PRN IV NAUSEA/VOMITING; Start 06/30/18 at 15:00; Stop 07/01/18 at 14:59; Status DC Morphine Sulfate (Morphine Sulfate) 4 mg PRN Q2HR PRN IV PAIN Last administered on 07/01/18at 14:51; Start 06/30/18 at 15:00; Stop 07/01/18 at 14:59 ; Status DC Sodium Chloride 1,000 ml @ 65 mls/hr [id number] IV Last administered on at 10:25; Start 06/30/18 at 14:46; Stop 07/01/18 at 14:45; Status DC Ceftriaxone Sodium 1 gm/ Dextrose 50 ml @ 100 mls/hr Q24H IV ; Start 06/30/18 at 15:15; Stop 06/30/18 at 15:43; Status DC Acetaminophen (Tylenol) 650 mg PRN Q6HRS PRN PO FEVER; Start 06/30/18 at 15:15 Ondansetron HCl (Zofran) 4 mg PRN Q6HRS PRN IV NAUSEA/VOMITING; Start 06/30/18 at 15:15 Morphine Sulfate (Morphine Sulfate) 2 mg PRN Q2HR PRN IV MODERATE PAIN Last administered on 07/03/18at 13:15; Start 06/30/18 at 15:15 Tramadol HCl (Ultram) 50 mg PRN Q6HRS PRN PO MILD TO MODERATE PAIN; Start 06/30 at 15:15 Docusate Sodium (Colace) 100 mg PRN DAILY PRN PO CONSTIPATION; Start 06/30/18 at 15:15 Labetalol HCl (Normodyne Iv Push) 20 mg PRN Q2HR PRN IVP HYPERTENSION, SEE COMMENTS; Start 06/30/18 at 15:15 Morphine Sulfate (Morphine Sulfate) 4 mg PRN Q2HR PRN IV SEVERE PAIN Last administered on 07/02/18at 19:59; Start 06/30/18 at 15:15 Enoxaparin Sodium (Lovenox 30mg Syringe) 30 mg Q24H SQ ; Start 06/30/18 at 16:00 ; Stop 06/30/18 at 18:50; Status DC Ceftriaxone Sodium 50 ml @ 100 mls/hr 1X ONCE IV ; Start 06/30/18 at 15:30; Stop 06/30/18 at 15:59; Status Cancel Ceftriaxone Sodium 1 gm/ Dextrose 50 ml @ 100 mls/hr Q24H IV ; Start 06/30/18 at 15:45; Status UNV Ceftriaxone Sodium (Rocephin) 1 gm Q24H IVP Last administered on 07/02/18at 16: 30; Start 06/30/18 at 16:00 Enoxaparin Sodium (Lovenox Per Pharmacy Prophylaxis Dosing) 1 each PRN DAILY PRN MC SEE COMMENTS; Start 06/30/18 at 18:45; Status Cancel Docusate Sodium (Colace) 100 mg BID PO Last administered on 07/03/18at 09:33; Start 06/30/18 at 21:00 Furosemide (Lasix) 40 mg DAILY PO ; Start 07/01/18 at 09:00; Stop 07/01/18 at 09 :00; Status DC Oxycodone/ Acetaminophen (Percocet 5/325) 1 tab PRN Q4HRS PRN PO SEVERE PAIN Last administered on 07/03/18at 02:54; Start 06/30/18 at 18:45; Stop 07/03/18 at 08:35; Status DC Zolpidem Tartrate (Ambien) 5 mg QHS PO Last administered on 07/02/18at 19:56; Start 06/30/18 at 21:00 Zolpidem Tartrate (Ambien) 5 mg PRN QHS PRN PO INSOMNIA Last administered on at 21:59; Start 06/30/18 at 19:00 Enoxaparin Sodium (Lovenox 40mg Syringe) 40 mg Q24H SQ ; Start 06/30/18 at 19:00 ; Status Cancel Enoxaparin Sodium (Lovenox Per Pharmacy Treatment Dosing) 1 each PRN DAILY PRN MC SEE COMMENTS; Start 07/01/18 at 09:00 Enoxaparin Sodium (Lovenox 60mg Syringe) 60 mg Q12HR SQ Last administered on at 09:35; Start 07/01/18 at 09:00 Info (Anti-Coagulation Monitoring By Pharmacy) 1 each PRN DAILY PRN MC SEE COMMENTS Last administered on 07/02/18at 11:06; Start 06/30/18 at 19:15 Lactobacillus Rhamnosus (Culturelle) 1 cap BID PO Last administered on 09:33; Start 07/01/18 at 21:00 Hydrochlorothiazide (Hydrodiuril) 25 mg DAILY07 PO Last administered on 09:33; Start 07/01/18 at 16:00 Non-Formulary Medication (Warfarin Sodium ) 1 tab QSU PO ; Start 07/05/18 at 16 :00; Stop 07/05/18 at 16:00; Status DC Non-Formulary Medication (Warfarin Sodium ) 2 mg QMWF PO ; Start 07/01/18 at 16: 00; Stop 07/01/18 at 16:00; Status DC Non-Formulary Medication (Warfarin Sodium ) 1 tab QSA PO ; Start 07/04/18 at 16 :00; Stop 07/04/18 at 16:00; Status DC Non-Formulary Medication (Warfarin Sodium ) 1 tab QTU PO ; Start 07/07/18 at 16 :00; Stop 07/07/18 at 16:00; Status DC Fluoxetine HCl (PROzac) 20 mg DAILY PO Last administered on 07/03/18 09:34; Start 07/01/18 at 16:00 Levothyroxine Sodium (Synthroid) 50 mcg DAILY06 PO Last administered on at 05:58; Start 07/02/18 at 06:00 Methylprednisolone Acetate (DEPO-Medrol 40MG VIAL) 40 mg 1X ONCE IM Last administered on 07/01/18at 17:55; Start 07/01/18 at 18:00; Stop 07/01/18 at 18:01 ; Status DC Bupivacaine HCl (Sensorcaine-Mpf 0.25%) 10 ml 1X ONCE IJ Last administered on 07/01/18at 17:54; Start 07/01/18 at 18:00; Stop 07/01/18 at 18:01; Status DC Tizanidine HCl (Zanaflex) 4 mg Q8HRS PO Last administered on 07/03/18at 14:19; Start 07/01/18 at 22:00 Prednisone (Prednisone) 10 mg DAILY PO Last administered on 07/03/18 09:34; Start 07/01/18 at 18:00 Pantoprazole Sodium (Protonix) 40 mg DAILYAC PO Last administered on 07/03/18 09:34; Start 07/01/18 at 18:00 Lidocaine (Lidoderm) 1 patch DAILY TD Last administered on 07/02/18 08:23; Start 07/01/18 at 18:00 Miscellaneous (Lidoderm Patch Removal) 1 ea QHS MC Last administered on at 20:00; Start 07/01/18 at 21:00 Oxycodone/ Acetaminophen (Percocet 10/325) 1 tab PRN Q4HRS PRN PO Severe pain Last administered on 07/03/18 14:19; Start 07/03/18 at 08:45 Diphenhydramine HCl (Benadryl) 25 mg PRN Q6HRS PRN PO ITCHING Last administered on 07/03/18at 13:14; Start 07/03/18 at 12:30 Active Scripts Active Oxycodone-Acetaminophen 5-325 (Oxycodone Hcl/Acetaminophen) 1 Each Tablet 1 Tab PO PRN Q4HRS PRN Reported Furosemide 40 Mg Tablet 1 Tab PO DAILY Ambien (Zolpidem Tartrate) 10 Mg Tablet 1 Tab PO QHS Hydrochlorothiazide Tablet (Hydrochlorothiazide) 25 Mg Tablet 25 Mg PO Colace (Docusate Sodium) 100 Mg Capsule 100 Mg PO Lexapro (Escitalopram Oxalate) 20 Mg Tablet 20 Mg PO Simvastatin 20 Mg Tablet 20 Mg PO Levothyroxine Sodium 50 Mcg Tablet 50 Mcg PO Vitals/I & O Vital Sign - Last 24 Hours 07/02/18 07/02/18 07/02/18 07/02/18 15:00 16:29 19:00 19:59 Temp 97.9 97.9 97.9 97.9 Pulse 62 60 Resp 16 18 15 B/P (MAP) 139/83 (101) 148/73 (98) Pulse Ox 97 98 97 O2 Delivery Room Air Room Air Room Air Room Air 07/02/18 07/02/18 07/02/18 07/03/18 20:00 20:30 23:00 02:54 Temp 97.9 97.9 Pulse 59 Resp 14 18 14 B/P (MAP) 134/68 (90) Pulse Ox 97 96 96 O2 Delivery Room Air Room Air Room Air Room Air 07/03/18 07/03/18 07/03/18 07/03/18 03:00 04:00 07:00 08:00 Temp 98.1 98.0 98.1 98.0 Pulse 61 61 Resp 15 12 B/P (MAP) 145/77 (99) 169/84 (112) Pulse Ox 97 97 96 O2 Delivery Room Air Room Air Room Air Room Air 07/03/18 07/03/18 07/03/18 07/03/18 09:27 09:33 10:27 11:00 Temp 97.9 97.9 Pulse 62 Resp 18 18 18 16 B/P (MAP) 152/84 (106) O2 Delivery Room Air Room Air Room Air Room Air 07/03/18 07/03/18 07/03/18 13:15 13:45 14:19 Resp 18 18 18 Pulse Ox 96 96 O2 Delivery Room Air Room Air Room Air Intake and Output 07/02/18 07/02/18 07/03/18 15:00 23:00 07:00 Intake Total 360 ml 540 ml Output Total 0 ml Balance 360 ml 540 ml 0 ml ASHELY DE SOUZA MD Jul 03, 2018 14:57
[2018-07-03 15:00] VITALS: BP 146/71
[2018-07-03] MEDS: cefTRIAXone IV Push 1 GM VIAL. IVP SCH (17:04)
[2018-07-03] MEDS: MORPHINE SULFATE 4 MG/ML VIAL. IV PRN ×3 (17:10→23:50)
[2018-07-03 19:00] VITALS: BP 113/62
[2018-07-03] MEDS: ZOLPIDEM 5 MG TABLET. PO SCH (19:58)
[2018-07-03] MEDS: PATCH REMOVAL. MC SCH (19:59)
[2018-07-03 23:00] VITALS: BP 136/70
[2018-07-03] MEDS: ZOLPIDEM 5 MG TABLET. PO PRN (23:50)
[2018-07-04 03:00] VITALS: BP 105/66
[2018-07-04] MEDS: MORPHINE SULFATE 4 MG/ML VIAL. IV PRN ×5 (03:59→23:09)
[2018-07-04] MEDS: LEVOTHYROXINE 50 MCG TABLET PO SCH (05:52)
[2018-07-04] MEDS: hydroCHLOROthiazide 25 MG TABLET PO SCH (05:52)
[2018-07-04] MEDS: tiZANidine 4 MG TABLET. PO SCH ×3 (05:52→20:16)
[2018-07-04] MEDS: oxyCODONE/APAP 10/325 1 TAB TABLET PO PRN ×3 (05:52→20:14)
[2018-07-04 06:56] LABS: BASO % 1 % (0-3); EOS % 1 % (0-3); HEMATOCRIT 35.5 % (36.0-47.0); HEMOGLOBIN 11.8 g/dL (12.0-15.5); LYMPH # 1.7 x10^3/uL (1.0-4.8); LYMPH % 35 % (24-48); MEAN CORPUSCULAR HEMOGLOBIN 33 pg (25-35); MEAN CORPUSCULAR HGB CONC 33 g/dL (31-37); MEAN CORPUSCULAR VOLUME 98 fL (79-100); MONO # 0.6 x10^3/uL (0.0-1.1); MONO % 12 % (0-9); NEUT # 2.5 x10^3uL (1.8-7.7); NEUT % 53 % (31-73); PLATELET COUNT 144 x10^3/uL (140-400); RED BLOOD COUNT 3.64 x10^6/uL (3.50-5.40); RED CELL DISTRIBUTION WIDTH 13.9 % (11.5-14.5); WHITE BLOOD COUNT 4.8 x10^3/uL (4.0-11.0)
[2018-07-04 07:17] LABS: CALCIUM 8.8 mg/dL (8.5-10.1); CREATININE 1.2 mg/dL (0.6-1.0); GFR 54.4; POTASSIUM 3.8 mmol/L (3.5-5.1)
[2018-07-04 07:43] VITALS: BP 166/97
[2018-07-04] MEDS: FLUoxetine HCL 20 MG CAPSULE PO SCH (08:48)
[2018-07-04] MEDS: LACTOBACILLUS RHAMNOSUS GG 1 CAPSULE. PO SCH ×2 (08:48→20:14)
[2018-07-04] MEDS: predniSONE 10 MG TABLET PO SCH (08:48)
[2018-07-04] MEDS: PANTOPRAZOLE 40 MG TABLET.DR. PO SCH (08:49)
[2018-07-04] MEDS: DOCUSATE SODIUM 100 MG CAPSULE. PO SCH ×2 (08:49→16:57)
[2018-07-04] MEDS: LIDOCAINE (700MG/PATCH) PATCH. TD SCH (08:52)
[2018-07-04] MEDS ORDERED: BUPIVACAINE MPF 0.25% 10 ML VIAL. IJ ONE (09:45)
[2018-07-04] MEDS ORDERED: methylPREDNISolone ACETATE 40 MG/ML VIAL. IM ONE ×2 (09:45)
[2018-07-04] MEDS ORDERED: BUPIVACAINE MPF 0.25% 10 ML VIAL. ONE (10:00)
[2018-07-04] MEDS ORDERED: methylPREDNISolone ACETATE 40 MG/ML VIAL. ONE ×2 (10:00)
[2018-07-04] MEDS ORDERED: OXYC-411 PO (10:19)
[2018-07-04] MEDS ORDERED: TIZA4TAB PO (10:19)
[2018-07-04] MEDS ORDERED: LIDO700A39 TD (10:19)
--- NOTE | 2018-07-04 10:20 | DISCH ---
DISCHARGE WITH HOME HEALTH DISCHARGE INFORMATION: Discharge Date: Jul 04, 2018 Final Diagnosis: Problems Medical Problems: (1) Abdominal pain Status: Acute (2) Flank pain Status: Acute Condition on Discharge: Stable CODE STATUS: Code Status: Full HOME HEALTH: Face to Face: I certify this patient is under my care and that I, or a nurse practitioner or physician's phlebotomist medical lab assistant working with me, had a face to face encounter that meets the physician face to face encounter requirements with this patient on []. Medical Complications: Other (back pain, Cardiac device) Physical Therapy For: Evalulation/Treatment Occupational Therapy For: Evaluation/Treatment Home Health Aide For: Self-care CHRONIC MANAGER For: Community Resources POST DISCHARGE ORDERS: Activity Instructions for Disc: Activity as tolerated Weight Bearing Status after Di: As tolerated DIET AFTER DISCHARGE: Cardiac CHECKS AFTER DISCHARGE: Checks after discharge: Check blood press - daily TREATMENT/EQUIPMENT ORDERS: Adaptive Equipment Issued: None CERTIFICATION STATEMENT: Certification Statement: Certification Statement: Based on the above finding, I certify that this patient is confined to the home and needs intermittent care home care, physical therapy and/or speech therapy, or continues to need occupational therapy.~ This patient is under my care, and I have initiated the establishment of the plan of care.~ This patient will be followed by myself or a community physician who will periodically review the plan of care. Home Meds Active Scripts Lidocaine (Lidocaine) 1 Each Adh..patch, 1 PATCH TD DAILY for back pain MDD 1, # 14 PATCH Prov:BERNARDO MERRITT MD 07/04/18 Oxycodone Hcl/Acetaminophen (OXYCODONE-ACETAMINOPHEN 10-325) 1 Each Tablet, 1 TAB PO PRN Q4HRS PRN for Severe pain, #20 TAB Prov:BERNARDO MERRITT MD 07/04/18 Tizanidine Hcl (TIZANIDINE HCL) 4 Mg Tablet, 4 MG PO Q8HRS for back apin MDD 1, #30 TAB Prov:BERNARDO MERRITT MD 07/04/18 Oxycodone Hcl/Acetaminophen (OXYCODONE-ACETAMINOPHEN 5-325) 1 Each Tablet, 1 TAB PO PRN Q4HRS PRN for SEVERE PAIN, #30 TAB Prov:DADA GREENWOOD MD 11/13/16 Reported Medications Furosemide (FUROSEMIDE) 40 Mg Tablet, 1 TAB PO DAILY for chf, #30 TAB 5 Refills 06/30/18 Zolpidem Tartrate (AMBIEN) 10 Mg Tablet, 1 TAB PO QHS, #30 TAB 5 Refills 11/10/16 Hydrochlorothiazide (HYDROCHLOROTHIAZIDE TABLET ) 25 Mg Tablet, 25 MG PO 08/05/13 Docusate Sodium (COLACE) 100 Mg Capsule, 100 MG PO 08/05/13 Escitalopram Oxalate (LEXAPRO) 20 Mg Tablet, 20 MG PO 08/05/13 Simvastatin (SIMVASTATIN) 20 Mg Tablet, 20 MG PO 08/05/13 Levothyroxine Sodium (LEVOTHYROXINE SODIUM) 50 Mcg Tablet, 50 MCG PO 08/05/13 Discontinued Reported Medications Warfarin Sodium (WARFARIN SODIUM) 3 Mg Tablet, 1 TAB PO QSA, #30 TAB 5 Refills 11/10/16 Warfarin Sodium (WARFARIN SODIUM) 3 Mg Tablet, 1 TAB PO QTU, #30 TAB 5 Refills 11/10/16 Warfarin Sodium (WARFARIN SODIUM) 2 Mg Tablet, 1 TAB PO QSU, #90 TAB 1 Refill 11/10/16 Warfarin Sodium (WARFARIN SODIUM) 2 Mg Tablet, 2 MG PO QMWF 08/05/13 Aspirin (ASPIR 81) 81 Mg Tablet.dr, 81 MG PO 08/05/13 Amiodarone Hcl (CORDARONE) 200 Mg Tablet, 200 MG PO 08/05/13 BERNARDO MERRITT MD Jul 04, 2018 10:20
--- NOTE | 2018-07-04 10:47 | PDOC ---
PROGRESS NOTES Subjective Subjective She admits continued low back and right hip area pain and did not see her yesterday. Objective Objective Vital Signs Date Time Temp Pulse Resp B/P (MAP) Pulse Ox O2 Delivery O2 Flow Rate FiO2 07/04/18 10:21 Room Air 07/04/18 07:43 97.9 115 19 166/97 (120) 95 97.9 Intake and Output 07/04/18 07:00 Intake Total 1400 ml Output Total 1550 ml Balance -150 ml Intake Oral 1400 ml Output Urine Total 1550 ml # Voids 5 Physical Exam Physical Exam She continues with tenderness to palpation over right lumbar paraspinal muscles, sacroiliac joint area and painfully limited lumbar spine ROM and she is protectin her low back and right hip. Assessment Assessment Problems Medical Problems: (1) Abdominal pain Status: Acute (2) Flank pain Status: Acute Plan Plan of Care At her request,I have injected painful right sacroiliac joint and trigger points over right lumbar paraspinal muscles with 4 ml of 0.25% bupivacaine and 2 ml of depomedrol 40 mg/ 1 ml solution and she tolerated the procedure satisfactorily without any side effects.To continue present physical and occupational therapy follow up as tolerated and to consider transfer to SNF if pain is limiting her mobility and self care. Comment Review of Relevant I have reviewed the following items sherman (where applicable) has been applied. Labs Laboratory Tests Test 07/04/18 06:05 07/04/18 06:20 Sodium Level 143 mmol/L (136-145) Potassium Level 3.8 mmol/L (3.5-5.1) Chloride Level 108 mmol/L (98-107) Carbon Dioxide Level 27 mmol/L (21-32) Anion Gap 8 (6-14) Blood Urea Nitrogen 22 mg/dL (7-20) Creatinine 1.2 mg/dL (0.6-1.0) Estimated GFR (Cockcroft-Gault) 54.4 Glucose Level 99 mg/dL (70-99) Calcium Level 8.8 mg/dL (8.5-10.1) White Blood Count 4.8 x10^3/uL (4.0-11.0) Red Blood Count 3.64 x10^6/uL (3.50-5.40) Hemoglobin 11.8 g/dL (12.0-15.5) Hematocrit 35.5 % (36.0-47.0) Mean Corpuscular Volume 98 fL (79-100) Mean Corpuscular Hemoglobin 33 pg (25-35) Mean Corpuscular Hemoglobin Concent 33 g/dL (31-37) Red Cell Distribution Width 13.9 % (11.5-14.5) Platelet Count 144 x10^3/uL (140-400) Neutrophils (%) (Auto) 53 % (31-73) Lymphocytes (%) (Auto) 35 % (24-48) Monocytes (%) (Auto) 12 % (0-9) Eosinophils (%) (Auto) 1 % (0-3) Basophils (%) (Auto) 1 % (0-3) Neutrophils # (Auto) 2.5 x10^3uL (1.8-7.7) Lymphocytes # (Auto) 1.7 x10^3/uL (1.0-4.8) Monocytes # (Auto) 0.6 x10^3/uL (0.0-1.1) Eosinophils # (Auto) 0.0 x10^3/uL (0.0-0.7) Basophils # (Auto) 0.0 x10^3/uL (0.0-0.2) Laboratory Tests Test 07/04/18 06:05 07/04/18 06:20 Sodium Level 143 mmol/L (136-145) Potassium Level 3.8 mmol/L (3.5-5.1) Chloride Level 108 mmol/L (98-107) Carbon Dioxide Level 27 mmol/L (21-32) Anion Gap 8 (6-14) Blood Urea Nitrogen 22 mg/dL (7-20) Creatinine 1.2 mg/dL (0.6-1.0) Estimated GFR (Cockcroft-Gault) 54.4 Glucose Level 99 mg/dL (70-99) Calcium Level 8.8 mg/dL (8.5-10.1) White Blood Count 4.8 x10^3/uL (4.0-11.0) Red Blood Count 3.64 x10^6/uL (3.50-5.40) Hemoglobin 11.8 g/dL (12.0-15.5) Hematocrit 35.5 % (36.0-47.0) Mean Corpuscular Volume 98 fL (79-100) Mean Corpuscular Hemoglobin 33 pg (25-35) Mean Corpuscular Hemoglobin Concent 33 g/dL (31-37) Red Cell Distribution Width 13.9 % (11.5-14.5) Platelet Count 144 x10^3/uL (140-400) Neutrophils (%) (Auto) 53 % (31-73) Lymphocytes (%) (Auto) 35 % (24-48) Monocytes (%) (Auto) 12 % (0-9) Eosinophils (%) (Auto) 1 % (0-3) Basophils (%) (Auto) 1 % (0-3) Neutrophils # (Auto) 2.5 x10^3uL (1.8-7.7) Lymphocytes # (Auto) 1.7 x10^3/uL (1.0-4.8) Monocytes # (Auto) 0.6 x10^3/uL (0.0-1.1) Eosinophils # (Auto) 0.0 x10^3/uL (0.0-0.7) Basophils # (Auto) 0.0 x10^3/uL (0.0-0.2) Microbiology 06/30/18 Blood Culture - Preliminary, Resulted NO GROWTH AFTER 3 DAYS Medications Current Medications Morphine Sulfate (Morphine Sulfate) 4 mg 1X ONCE IV Last administered on at 11:44; Start 06/30/18 at 11:15; Stop 06/30/18 at 11:16; Status DC Sodium Chloride 500 ml @ 500 mls/hr 1X ONCE IV Last administered on at 12:53; Start 06/30/18 at 12:30; Stop 06/30/18 at 13:29; Status DC Morphine Sulfate (Morphine Sulfate) 4 mg 1X ONCE IV Last administered on at 13:54; Start 06/30/18 at 13:45; Stop 06/30/18 at 13:50; Status DC Ondansetron HCl (Zofran) 4 mg PRN Q8HRS PRN IV NAUSEA/VOMITING; Start 06/30/18 at 15:00; Stop 07/01/18 at 14:59; Status DC Morphine Sulfate (Morphine Sulfate) 4 mg PRN Q2HR PRN IV PAIN Last administered on 07/01/18at 14:51; Start 06/30/18 at 15:00; Stop 07/01/18 at 14:59 ; Status DC Sodium Chloride 1,000 ml @ 65 mls/hr [id number] IV Last administered on at 10:25; Start 06/30/18 at 14:46; Stop 07/01/18 at 14:45; Status DC Ceftriaxone Sodium 1 gm/ Dextrose 50 ml @ 100 mls/hr Q24H IV ; Start 06/30/18 at 15:15; Stop 06/30/18 at 15:43; Status DC Acetaminophen (Tylenol) 650 mg PRN Q6HRS PRN PO FEVER; Start 06/30/18 at 15:15 Ondansetron HCl (Zofran) 4 mg PRN Q6HRS PRN IV NAUSEA/VOMITING; Start 06/30/18 at 15:15 Morphine Sulfate (Morphine Sulfate) 2 mg PRN Q2HR PRN IV MODERATE PAIN Last administered on 07/03/18at 13:15; Start 06/30/18 at 15:15 Tramadol HCl (Ultram) 50 mg PRN Q6HRS PRN PO MILD TO MODERATE PAIN; Start 06/30 at 15:15 Docusate Sodium (Colace) 100 mg PRN DAILY PRN PO CONSTIPATION; Start 06/30/18 at 15:15 Labetalol HCl (Normodyne Iv Push) 20 mg PRN Q2HR PRN IVP HYPERTENSION, SEE COMMENTS; Start 06/30/18 at 15:15 Morphine Sulfate (Morphine Sulfate) 4 mg PRN Q2HR PRN IV SEVERE PAIN Last administered on 07/04/18at 08:50; Start 06/30/18 at 15:15 Enoxaparin Sodium (Lovenox 30mg Syringe) 30 mg Q24H SQ ; Start 06/30/18 at 16:00 ; Stop 06/30/18 at 18:50; Status DC Ceftriaxone Sodium 50 ml @ 100 mls/hr 1X ONCE IV ; Start 06/30/18 at 15:30; Stop 06/30/18 at 15:59; Status Cancel Ceftriaxone Sodium 1 gm/ Dextrose 50 ml @ 100 mls/hr Q24H IV ; Start 06/30/18 at 15:45; Status UNV Ceftriaxone Sodium (Rocephin) 1 gm Q24H IVP Last administered on 07/03/18at 17: 04; Start 06/30/18 at 16:00; Stop 07/04/18 at 10:17; Status DC Enoxaparin Sodium (Lovenox Per Pharmacy Prophylaxis Dosing) 1 each PRN DAILY PRN MC SEE COMMENTS; Start 06/30/18 at 18:45; Status Cancel Docusate Sodium (Colace) 100 mg BID PO Last administered on 07/04/18at 08:49; Start 06/30/18 at 21:00 Furosemide (Lasix) 40 mg DAILY PO ; Start 07/01/18 at 09:00; Stop 07/01/18 at 09 :00; Status DC Oxycodone/ Acetaminophen (Percocet 5/325) 1 tab PRN Q4HRS PRN PO SEVERE PAIN Last administered on 07/03/18at 02:54; Start 06/30/18 at 18:45; Stop 07/03/18 at 08:35; Status DC Zolpidem Tartrate (Ambien) 5 mg QHS PO Last administered on 07/03/18at 19:58; Start 06/30/18 at 21:00 Zolpidem Tartrate (Ambien) 5 mg PRN QHS PRN PO INSOMNIA Last administered on at 23:50; Start 06/30/18 at 19:00 Enoxaparin Sodium (Lovenox 40mg Syringe) 40 mg Q24H SQ ; Start 06/30/18 at 19:00 ; Status Cancel Enoxaparin Sodium (Lovenox Per Pharmacy Treatment Dosing) 1 each PRN DAILY PRN MC SEE COMMENTS; Start 07/01/18 at 09:00 Enoxaparin Sodium (Lovenox 60mg Syringe) 60 mg Q12HR SQ Last administered on at 08:51; Start 07/01/18 at 09:00 Info (Anti-Coagulation Monitoring By Pharmacy) 1 each PRN DAILY PRN MC SEE COMMENTS Last administered on 07/02/18at 11:06; Start 06/30/18 at 19:15 Lactobacillus Rhamnosus (Culturelle) 1 cap BID PO Last administered on at 08:48; Start 07/01/18 at 21:00 Hydrochlorothiazide (Hydrodiuril) 25 mg DAILY07 PO Last administered on at 05:52; Start 07/01/18 at 16:00 Non-Formulary Medication (Warfarin Sodium ) 1 tab QSU PO ; Start 07/05/18 at 16 :00; Stop 07/05/18 at 16:00; Status DC Non-Formulary Medication (Warfarin Sodium ) 2 mg QMWF PO ; Start 07/01/18 at 16: 00; Stop 07/01/18 at 16:00; Status DC Non-Formulary Medication (Warfarin Sodium ) 1 tab QSA PO ; Start 07/04/18 at 16 :00; Stop 07/04/18 at 16:00; Status DC Non-Formulary Medication (Warfarin Sodium ) 1 tab QTU PO ; Start 07/07/18 at 16 :00; Stop 07/07/18 at 16:00; Status DC Fluoxetine HCl (PROzac) 20 mg DAILY PO Last administered on 07/04/18 08:48; Start 07/01/18 at 16:00 Levothyroxine Sodium (Synthroid) 50 mcg DAILY06 PO Last administered on 05:52; Start 07/02/18 at 06:00 Methylprednisolone Acetate (DEPO-Medrol 40MG VIAL) 40 mg 1X ONCE IM Last administered on 07/01/18 17:55; Start 07/01/18 at 18:00; Stop 07/01/18 at 18:01 ; Status DC Bupivacaine HCl (Sensorcaine-Mpf 0.25%) 10 ml 1X ONCE IJ Last administered on 07/01/18 17:54; Start 07/01/18 at 18:00; Stop 07/01/18 at 18:01; Status DC Tizanidine HCl (Zanaflex) 4 mg Q8HRS PO Last administered on 07/04/18 05:52; Start 07/01/18 at 22:00 Prednisone (Prednisone) 10 mg DAILY PO Last administered on 07/04/18 08:48; Start 07/01/18 at 18:00 Pantoprazole Sodium (Protonix) 40 mg DAILYAC PO Last administered on 08:49; Start 07/01/18 at 18:00 Lidocaine (Lidoderm) 1 patch DAILY TD Last administered on 07/04/18 08:52; Start 07/01/18 at 18:00 Miscellaneous (Lidoderm Patch Removal) 1 ea QHS MC Last administered on at 20:00; Start 07/01/18 at 21:00 Oxycodone/ Acetaminophen (Percocet 10/325) 1 tab PRN Q4HRS PRN PO Severe pain Last administered on 07/04/18at 10:21; Start 07/03/18 at 08:45 Diphenhydramine HCl (Benadryl) 25 mg PRN Q6HRS PRN PO ITCHING Last administered on 07/03/18at 13:14; Start 07/03/18 at 12:30 Methylprednisolone Acetate (DEPO-Medrol 40MG VIAL) 40 mg 1X ONCE IM ; Start at 09:45; Stop 07/04/18 at 09:46; Status DC Bupivacaine HCl (Sensorcaine-Mpf 0.25%) 10 ml 1X ONCE IJ ; Start 07/04/18 at 09:45; Stop 07/04/18 at 09:46; Status DC Methylprednisolone Acetate (DEPO-Medrol 40MG VIAL) 40 mg 1X ONCE IM ; Start at 09:45; Stop 07/04/18 at 09:46; Status DC Active Scripts Active Lidocaine 1 Each Adh..patch 1 Patch TD DAILY MDD 1 Oxycodone-Acetaminophen 10-325 (Oxycodone Hcl/Acetaminophen) 1 Each Tablet 1 Tab PO PRN Q4HRS PRN Tizanidine Hcl 4 Mg Tablet 4 Mg PO Q8HRS MDD 1 Oxycodone-Acetaminophen 5-325 (Oxycodone Hcl/Acetaminophen) 1 Each Tablet 1 Tab PO PRN Q4HRS PRN Reported Furosemide 40 Mg Tablet 1 Tab PO DAILY Ambien (Zolpidem Tartrate) 10 Mg Tablet 1 Tab PO QHS Hydrochlorothiazide Tablet (Hydrochlorothiazide) 25 Mg Tablet 25 Mg PO Colace (Docusate Sodium) 100 Mg Capsule 100 Mg PO Lexapro (Escitalopram Oxalate) 20 Mg Tablet 20 Mg PO Simvastatin 20 Mg Tablet 20 Mg PO Levothyroxine Sodium 50 Mcg Tablet 50 Mcg PO Vitals/I & O Vital Sign - Last 24 Hours 07/03/18 07/03/18 07/03/18 07/03/18 11:00 13:15 13:45 14:19 Temp 97.9 97.9 Pulse 62 Resp 16 18 18 18 B/P (MAP) 152/84 (106) Pulse Ox 96 96 O2 Delivery Room Air Room Air Room Air Room Air 07/03/18 07/03/18 07/03/18 07/03/18 15:00 15:19 17:10 17:40 Temp 97.8 97.8 Pulse 61 Resp 16 18 18 18 B/P (MAP) 146/71 (96) Pulse Ox 97 O2 Delivery Room Air Room Air 07/03/18 07/03/18 07/03/18 07/03/18 19:00 19:58 20:00 21:42 Temp 98.0 98.0 Pulse 59 Resp 18 B/P (MAP) 113/62 (79) Pulse Ox 97 O2 Delivery Room Air Room Air Room Air Room Air 07/03/18 07/03/18 07/04/18 07/04/18 23:00 23:50 03:00 03:59 Temp 98.1 98.6 98.1 98.6 Pulse 59 58 Resp 18 18 B/P (MAP) 136/70 (92) 105/66 (79) Pulse Ox 98 96 O2 Delivery Room Air Room Air Room Air Room Air 07/04/18 07/04/18 07/04/18 07/04/18 05:52 06:52 07:43 08:50 Temp 97.9 97.9 Pulse 115 Resp 19 B/P (MAP) 166/97 (120) Pulse Ox 95 O2 Delivery Room Air Room Air Room Air Room Air 07/04/18 07/04/18 09:20 10:21 O2 Delivery Room Air Room Air Intake and Output 07/03/18 07/03/18 07/04/18 15:00 23:00 07:00 Intake Total 600 ml 500 ml 300 ml Output Total 600 ml 250 ml 700 ml Balance 0 ml 250 ml -400 ml STEPHANIE MERCEDES MD Jul 04, 2018 10:47
[2018-07-04 11:01] VITALS: BP 150/85
--- NOTE | 2018-07-04 11:46 | PDOC ---
PROGRESS NOTES Chief Complaint Chief Complaint Sciatica right leg Acute on chronic lumbago - s/p inj 07/04/18 Negative urine culture Moderate scattered degenerative changes in the lower lumbar spine with mild to moderate central spinal stenosis at L3-4 and to a lesser degree at L4-5. History of Present Illness History of Present Illness Complains of right flank pain radiating down to her right toes Positive SLR testing Just had injections to back by physiatry but still feels no improvement She claims she's not ready to DC today She has a at home whom she takes care of too She has been cleared by cardiology to DC and to follow-up CARMEN next week which is scheduled for Friday for lead replacement etc. PLAN: Hold DC today Await/see progress post back injections Rx all on chart including zanaflex, pain med and lidoderm patch MIght need steroid tepar rx on dc, hopefully tmr LEad revision by [facility] as OP on friday Vitals Vitals Vital Signs Date Time Temp Pulse Resp B/P (MAP) Pulse Ox O2 Delivery O2 Flow Rate FiO2 07/04/18 11:01 98.0 106 19 150/85 (106) 96 Room Air 98.0 Physical Exam Physical Exam Physical Exam GEN.: No apparent distress. Alert and oriented. HEENT: Head is normocephalic, atraumatic NECK: Supple. LUNGS: Clear to auscultation. HEART: RRR, S1, S2 present. Peripheral pulses intact ABDOMEN: Soft, Positive bowel sounds. severe rt side abd tenderness ,no guarding or rebound. EXTREMITIES: Without any cyanosis. no edema, + bl foot pulse, limited RT LEG ROM 2/2 rt flank pain NEUROLOGIC: Normal speech, normal tone PSYCHIATRIC: Normal affect, normal mood. SKIN: No ulcerations General: Alert, Oriented X3, Cooperative, mild distress, moderate distress Heart: Regular rate, Normal S1, Normal S2 Lungs: Clear Abdomen: Normal bowel sounds, Soft, No tenderness Extremities: No clubbing, No cyanosis, No edema Skin: No breakdown, No significant lesion, Other (LE hyperpigmentations) Labs LABS Laboratory Tests Test 07/04/18 06:05 07/04/18 06:20 Sodium Level 143 mmol/L (136-145) Potassium Level 3.8 mmol/L (3.5-5.1) Chloride Level 108 mmol/L (98-107) Carbon Dioxide Level 27 mmol/L (21-32) Anion Gap 8 (6-14) Blood Urea Nitrogen 22 mg/dL (7-20) Creatinine 1.2 mg/dL (0.6-1.0) Estimated GFR (Cockcroft-Gault) 54.4 Glucose Level 99 mg/dL (70-99) Calcium Level 8.8 mg/dL (8.5-10.1) White Blood Count 4.8 x10^3/uL (4.0-11.0) Red Blood Count 3.64 x10^6/uL (3.50-5.40) Hemoglobin 11.8 g/dL (12.0-15.5) Hematocrit 35.5 % (36.0-47.0) Mean Corpuscular Volume 98 fL (79-100) Mean Corpuscular Hemoglobin 33 pg (25-35) Mean Corpuscular Hemoglobin Concent 33 g/dL (31-37) Red Cell Distribution Width 13.9 % (11.5-14.5) Platelet Count 144 x10^3/uL (140-400) Neutrophils (%) (Auto) 53 % (31-73) Lymphocytes (%) (Auto) 35 % (24-48) Monocytes (%) (Auto) 12 % (0-9) Eosinophils (%) (Auto) 1 % (0-3) Basophils (%) (Auto) 1 % (0-3) Neutrophils # (Auto) 2.5 x10^3uL (1.8-7.7) Lymphocytes # (Auto) 1.7 x10^3/uL (1.0-4.8) Monocytes # (Auto) 0.6 x10^3/uL (0.0-1.1) Eosinophils # (Auto) 0.0 x10^3/uL (0.0-0.7) Basophils # (Auto) 0.0 x10^3/uL (0.0-0.2) Review of Systems Review of Systems Back pain, the rest of ROS 14 point negative Assessment and Plan Assessmemt and Plan Problems Medical Problems: (1) Abdominal pain Status: Acute (2) Flank pain Status: Acute Comment Review of Relevant I have reviewed the following items sherman (where applicable) has been applied. Labs Laboratory Tests Test 07/04/18 06:05 07/04/18 06:20 Sodium Level 143 mmol/L (136-145) Potassium Level 3.8 mmol/L (3.5-5.1) Chloride Level 108 mmol/L (98-107) Carbon Dioxide Level 27 mmol/L (21-32) Anion Gap 8 (6-14) Blood Urea Nitrogen 22 mg/dL (7-20) Creatinine 1.2 mg/dL (0.6-1.0) Estimated GFR (Cockcroft-Gault) 54.4 Glucose Level 99 mg/dL (70-99) Calcium Level 8.8 mg/dL (8.5-10.1) White Blood Count 4.8 x10^3/uL (4.0-11.0) Red Blood Count 3.64 x10^6/uL (3.50-5.40) Hemoglobin 11.8 g/dL (12.0-15.5) Hematocrit 35.5 % (36.0-47.0) Mean Corpuscular Volume 98 fL (79-100) Mean Corpuscular Hemoglobin 33 pg (25-35) Mean Corpuscular Hemoglobin Concent 33 g/dL (31-37) Red Cell Distribution Width 13.9 % (11.5-14.5) Platelet Count 144 x10^3/uL (140-400) Neutrophils (%) (Auto) 53 % (31-73) Lymphocytes (%) (Auto) 35 % (24-48) Monocytes (%) (Auto) 12 % (0-9) Eosinophils (%) (Auto) 1 % (0-3) Basophils (%) (Auto) 1 % (0-3) Neutrophils # (Auto) 2.5 x10^3uL (1.8-7.7) Lymphocytes # (Auto) 1.7 x10^3/uL (1.0-4.8) Monocytes # (Auto) 0.6 x10^3/uL (0.0-1.1) Eosinophils # (Auto) 0.0 x10^3/uL (0.0-0.7) Basophils # (Auto) 0.0 x10^3/uL (0.0-0.2) Laboratory Tests Test 07/04/18 06:05 07/04/18 06:20 Sodium Level 143 mmol/L (136-145) Potassium Level 3.8 mmol/L (3.5-5.1) Chloride Level 108 mmol/L (98-107) Carbon Dioxide Level 27 mmol/L (21-32) Anion Gap 8 (6-14) Blood Urea Nitrogen 22 mg/dL (7-20) Creatinine 1.2 mg/dL (0.6-1.0) Estimated GFR (Cockcroft-Gault) 54.4 Glucose Level 99 mg/dL (70-99) Calcium Level 8.8 mg/dL (8.5-10.1) White Blood Count 4.8 x10^3/uL (4.0-11.0) Red Blood Count 3.64 x10^6/uL (3.50-5.40) Hemoglobin 11.8 g/dL (12.0-15.5) Hematocrit 35.5 % (36.0-47.0) Mean Corpuscular Volume 98 fL (79-100) Mean Corpuscular Hemoglobin 33 pg (25-35) Mean Corpuscular Hemoglobin Concent 33 g/dL (31-37) Red Cell Distribution Width 13.9 % (11.5-14.5) Platelet Count 144 x10^3/uL (140-400) Neutrophils (%) (Auto) 53 % (31-73) Lymphocytes (%) (Auto) 35 % (24-48) Monocytes (%) (Auto) 12 % (0-9) Eosinophils (%) (Auto) 1 % (0-3) Basophils (%) (Auto) 1 % (0-3) Neutrophils # (Auto) 2.5 x10^3uL (1.8-7.7) Lymphocytes # (Auto) 1.7 x10^3/uL (1.0-4.8) Monocytes # (Auto) 0.6 x10^3/uL (0.0-1.1) Eosinophils # (Auto) 0.0 x10^3/uL (0.0-0.7) Basophils # (Auto) 0.0 x10^3/uL (0.0-0.2) Microbiology 06/30/18 Blood Culture - Preliminary, Resulted NO GROWTH AFTER 3 DAYS Medications Current Medications Morphine Sulfate (Morphine Sulfate) 4 mg 1X ONCE IV Last administered on at 11:44; Start 06/30/18 at 11:15; Stop 06/30/18 at 11:16; Status DC Sodium Chloride 500 ml @ 500 mls/hr 1X ONCE IV Last administered on at 12:53; Start 06/30/18 at 12:30; Stop 06/30/18 at 13:29; Status DC Morphine Sulfate (Morphine Sulfate) 4 mg 1X ONCE IV Last administered on at 13:54; Start 06/30/18 at 13:45; Stop 06/30/18 at 13:50; Status DC Ondansetron HCl (Zofran) 4 mg PRN Q8HRS PRN IV NAUSEA/VOMITING; Start 06/30/18 at 15:00; Stop 07/01/18 at 14:59; Status DC Morphine Sulfate (Morphine Sulfate) 4 mg PRN Q2HR PRN IV PAIN Last administered on 07/01/18at 14:51; Start 06/30/18 at 15:00; Stop 07/01/18 at 14:59 ; Status DC Sodium Chloride 1,000 ml @ 65 mls/hr [id number] IV Last administered on at 10:25; Start 06/30/18 at 14:46; Stop 07/01/18 at 14:45; Status DC Ceftriaxone Sodium 1 gm/ Dextrose 50 ml @ 100 mls/hr Q24H IV ; Start 06/30/18 at 15:15; Stop 06/30/18 at 15:43; Status DC Acetaminophen (Tylenol) 650 mg PRN Q6HRS PRN PO FEVER; Start 06/30/18 at 15:15 Ondansetron HCl (Zofran) 4 mg PRN Q6HRS PRN IV NAUSEA/VOMITING; Start 06/30/18 at 15:15 Morphine Sulfate (Morphine Sulfate) 2 mg PRN Q2HR PRN IV MODERATE PAIN Last administered on 07/03/18at 13:15; Start 06/30/18 at 15:15 Tramadol HCl (Ultram) 50 mg PRN Q6HRS PRN PO MILD TO MODERATE PAIN; Start 06/30 at 15:15 Docusate Sodium (Colace) 100 mg PRN DAILY PRN PO CONSTIPATION; Start 06/30/18 at 15:15 Labetalol HCl (Normodyne Iv Push) 20 mg PRN Q2HR PRN IVP HYPERTENSION, SEE COMMENTS; Start 06/30/18 at 15:15 Morphine Sulfate (Morphine Sulfate) 4 mg PRN Q2HR PRN IV SEVERE PAIN Last administered on 07/04/18at 08:50; Start 06/30/18 at 15:15 Enoxaparin Sodium (Lovenox 30mg Syringe) 30 mg Q24H SQ ; Start 06/30/18 at 16:00 ; Stop 06/30/18 at 18:50; Status DC Ceftriaxone Sodium 50 ml @ 100 mls/hr 1X ONCE IV ; Start 06/30/18 at 15:30; Stop 06/30/18 at 15:59; Status Cancel Ceftriaxone Sodium 1 gm/ Dextrose 50 ml @ 100 mls/hr Q24H IV ; Start 06/30/18 at 15:45; Status UNV Ceftriaxone Sodium (Rocephin) 1 gm Q24H IVP Last administered on 07/03/18at 17: 04; Start 06/30/18 at 16:00; Stop 07/04/18 at 10:17; Status DC Enoxaparin Sodium (Lovenox Per Pharmacy Prophylaxis Dosing) 1 each PRN DAILY PRN MC SEE COMMENTS; Start 06/30/18 at 18:45; Status Cancel Docusate Sodium (Colace) 100 mg BID PO Last administered on 07/04/18at 08:49; Start 06/30/18 at 21:00 Furosemide (Lasix) 40 mg DAILY PO ; Start 07/01/18 at 09:00; Stop 07/01/18 at 09 :00; Status DC Oxycodone/ Acetaminophen (Percocet 5/325) 1 tab PRN Q4HRS PRN PO SEVERE PAIN Last administered on 07/03/18at 02:54; Start 06/30/18 at 18:45; Stop 07/03/18 at 08:35; Status DC Zolpidem Tartrate (Ambien) 5 mg QHS PO Last administered on 07/03/18at 19:58; Start 06/30/18 at 21:00 Zolpidem Tartrate (Ambien) 5 mg PRN QHS PRN PO INSOMNIA Last administered on at 23:50; Start 06/30/18 at 19:00 Enoxaparin Sodium (Lovenox 40mg Syringe) 40 mg Q24H SQ ; Start 06/30/18 at 19:00 ; Status Cancel Enoxaparin Sodium (Lovenox Per Pharmacy Treatment Dosing) 1 each PRN DAILY PRN MC SEE COMMENTS; Start 07/01/18 at 09:00 Enoxaparin Sodium (Lovenox 60mg Syringe) 60 mg Q12HR SQ Last administered on at 08:51; Start 07/01/18 at 09:00 Info (Anti-Coagulation Monitoring By Pharmacy) 1 each PRN DAILY PRN MC SEE COMMENTS Last administered on 07/02/18at 11:06; Start 06/30/18 at 19:15 Lactobacillus Rhamnosus (Culturelle) 1 cap BID PO Last administered on at 08:48; Start 07/01/18 at 21:00 Hydrochlorothiazide (Hydrodiuril) 25 mg DAILY07 PO Last administered on at 05:52; Start 07/01/18 at 16:00 Non-Formulary Medication (Warfarin Sodium ) 1 tab QSU PO ; Start 07/05/18 at 16 :00; Stop 07/05/18 at 16:00; Status DC Non-Formulary Medication (Warfarin Sodium ) 2 mg QMWF PO ; Start 07/01/18 at 16: 00; Stop 07/01/18 at 16:00; Status DC Non-Formulary Medication (Warfarin Sodium ) 1 tab QSA PO ; Start 07/04/18 at 16 :00; Stop 07/04/18 at 16:00; Status DC Non-Formulary Medication (Warfarin Sodium ) 1 tab QTU PO ; Start 07/07/18 at 16 :00; Stop 07/07/18 at 16:00; Status DC Fluoxetine HCl (PROzac) 20 mg DAILY PO Last administered on 07/04/18at 08:48; Start 07/01/18 at 16:00 Levothyroxine Sodium (Synthroid) 50 mcg DAILY06 PO Last administered on at 05:52; Start 07/02/18 at 06:00 Methylprednisolone Acetate (DEPO-Medrol 40MG VIAL) 40 mg 1X ONCE IM Last administered on 07/01/18at 17:55; Start 07/01/18 at 18:00; Stop 07/01/18 at 18:01 ; Status DC Bupivacaine HCl (Sensorcaine-Mpf 0.25%) 10 ml 1X ONCE IJ Last administered on 07/01/18at 17:54; Start 07/01/18 at 18:00; Stop 07/01/18 at 18:01; Status DC Tizanidine HCl (Zanaflex) 4 mg Q8HRS PO Last administered on 07/04/18at 05:52; Start 07/01/18 at 22:00 Prednisone (Prednisone) 10 mg DAILY PO Last administered on 07/04/18at 08:48; Start 07/01/18 at 18:00 Pantoprazole Sodium (Protonix) 40 mg DAILYAC PO Last administered on at 08:49; Start 07/01/18 at 18:00 Lidocaine (Lidoderm) 1 patch DAILY TD Last administered on 07/04/18 08:52; Start 07/01/18 at 18:00 Miscellaneous (Lidoderm Patch Removal) 1 ea QHS MC Last administered on at 20:00; Start 07/01/18 at 21:00 Oxycodone/ Acetaminophen (Percocet 10/325) 1 tab PRN Q4HRS PRN PO Severe pain Last administered on 07/04/18at 10:21; Start 07/03/18 at 08:45 Diphenhydramine HCl (Benadryl) 25 mg PRN Q6HRS PRN PO ITCHING Last administered on 07/03/18at 13:14; Start 07/03/18 at 12:30 Methylprednisolone Acetate (DEPO-Medrol 40MG VIAL) 40 mg 1X ONCE IM ; Start at 09:45; Stop 07/04/18 at 09:46; Status DC Bupivacaine HCl (Sensorcaine-Mpf 0.25%) 10 ml 1X ONCE IJ ; Start 07/04/18 at 09:45; Stop 07/04/18 at 09:46; Status DC Methylprednisolone Acetate (DEPO-Medrol 40MG VIAL) 40 mg 1X ONCE IM ; Start at 09:45; Stop 07/04/18 at 09:46; Status DC Active Scripts Active Lidocaine 1 Each Adh..patch 1 Patch TD DAILY MDD 1 Oxycodone-Acetaminophen 10-325 (Oxycodone Hcl/Acetaminophen) 1 Each Tablet 1 Tab PO PRN Q4HRS PRN Tizanidine Hcl 4 Mg Tablet 4 Mg PO Q8HRS MDD 1 Oxycodone-Acetaminophen 5-325 (Oxycodone Hcl/Acetaminophen) 1 Each Tablet 1 Tab PO PRN Q4HRS PRN Reported Furosemide 40 Mg Tablet 1 Tab PO DAILY Ambien (Zolpidem Tartrate) 10 Mg Tablet 1 Tab PO QHS Hydrochlorothiazide Tablet (Hydrochlorothiazide) 25 Mg Tablet 25 Mg PO Colace (Docusate Sodium) 100 Mg Capsule 100 Mg PO Lexapro (Escitalopram Oxalate) 20 Mg Tablet 20 Mg PO Simvastatin 20 Mg Tablet 20 Mg PO Levothyroxine Sodium 50 Mcg Tablet 50 Mcg PO Vitals/I & O Vital Sign - Last 24 Hours 07/03/18 07/03/18 07/03/18 07/03/18 13:15 13:45 14:19 15:00 Temp 97.8 97.8 Pulse 61 Resp 18 18 18 16 B/P (MAP) 146/71 (96) Pulse Ox 96 96 97 O2 Delivery Room Air Room Air Room Air Room Air 07/03/18 07/03/18 07/03/18 07/03/18 15:19 17:10 17:40 19:00 Temp 98.0 98.0 Pulse 59 Resp 18 18 18 18 B/P (MAP) 113/62 (79) Pulse Ox 97 O2 Delivery Room Air Room Air 07/03/18 07/03/18 07/03/18 07/03/18 19:58 20:00 21:42 23:00 Temp 98.1 98.1 Pulse 59 Resp 18 B/P (MAP) 136/70 (92) Pulse Ox 98 O2 Delivery Room Air Room Air Room Air Room Air 07/03/18 07/04/18 07/04/18 07/04/18 23:50 03:00 03:59 05:52 Temp 98.6 98.6 Pulse 58 Resp 18 B/P (MAP) 105/66 (79) Pulse Ox 96 O2 Delivery Room Air Room Air Room Air Room Air 07/04/18 07/04/18 07/04/18 07/04/18 06:52 07:43 08:00 08:50 Temp 97.9 97.9 Pulse 115 Resp 19 B/P (MAP) 166/97 (120) Pulse Ox 95 O2 Delivery Room Air Room Air Room Air Room Air 07/04/18 07/04/18 07/04/18 09:20 10:21 11:01 Temp 98.0 98.0 Pulse 106 Resp 19 B/P (MAP) 150/85 (106) Pulse Ox 96 O2 Delivery Room Air Room Air Room Air Intake and Output 07/03/18 07/03/18 07/04/18 15:00 23:00 07:00 Intake Total 600 ml 500 ml 300 ml Output Total 600 ml 250 ml 700 ml Balance 0 ml 250 ml -400 ml BERNARDO MERRITT MD Jul 04, 2018 11:46
[2018-07-04 15:13] VITALS: BP 130/79
[2018-07-04] MEDS ORDERED: NON FORMULARY ITEM (Warfarin Sodium 1 TAB) PO SCH (16:00)
[2018-07-04 19:00] VITALS: BP 123/73
[2018-07-04] MEDS: ZOLPIDEM 5 MG TABLET. PO SCH (20:13)
[2018-07-04] MEDS: diphenhydrAMINE HCL 25 MG CAPSULE PO PRN (20:13)
[2018-07-04] MEDS: PATCH REMOVAL. MC SCH (20:17)
[2018-07-04 23:00] VITALS: BP 147/88
[2018-07-05 03:00] VITALS: BP 132/79
[2018-07-05] MEDS: MORPHINE SULFATE 2 MG/ML VIAL. IV PRN (03:10)
[2018-07-05] MEDS: LEVOTHYROXINE 50 MCG TABLET PO SCH (06:13)
[2018-07-05] MEDS: hydroCHLOROthiazide 25 MG TABLET PO SCH (06:13)
[2018-07-05] MEDS: tiZANidine 4 MG TABLET. PO SCH ×3 (06:13→19:55)
[2018-07-05 06:16] VITALS: BP 141/71
[2018-07-05] MEDS: MORPHINE SULFATE 4 MG/ML VIAL. IV PRN ×2 (06:31→15:10)
[2018-07-05] MEDS: oxyCODONE/APAP 10/325 1 TAB TABLET PO PRN ×2 (07:59→17:39)
[2018-07-05] MEDS: PANTOPRAZOLE 40 MG TABLET.DR. PO SCH (07:59)
[2018-07-05] MEDS: predniSONE 10 MG TABLET PO SCH (07:59)
[2018-07-05] MEDS: FLUoxetine HCL 20 MG CAPSULE PO SCH (07:59)
[2018-07-05] MEDS: LACTOBACILLUS RHAMNOSUS GG 1 CAPSULE. PO SCH ×2 (07:59→19:55)
[2018-07-05] MEDS: DOCUSATE SODIUM 100 MG CAPSULE. PO SCH ×2 (08:00→19:55)
[2018-07-05] MEDS: LIDOCAINE (700MG/PATCH) PATCH. TD SCH (08:01)
--- NOTE | 2018-07-05 11:13 | PDOC ---
PROGRESS NOTES Chief Complaint Chief Complaint Sciatica right leg Acute on chronic lumbago - s/p inj 07/04/18 - NO IMPROVEMENT Negative urine culture Moderate scattered degenerative changes in the lower lumbar spine with mild to moderate central spinal stenosis at L3-4 and to a lesser degree at L4-5. INDWELLING PACER WITH LEAD REVERSAL PLANNED by [facility] ON FRIDAY - WARF on hold and transitioned to lovenox BID MECH MV? CM on OAC GEN WEAKNESS - History of Present Illness History of Present Illness complains of back pain still radiating to her foot despite injections by physiatry on Friday Her last MRI/ CAT scan or imaging of her back was March. But she does not wish to pursue any MRI because she has lead reversal planned by [facility] on Friday. She was told that MRI can sometimes make the leads malfunction She would rather wait for physiatry She actually did pretty good with physical therapy - no PT needs She lives at home with and they take care of each other. Sounds like the is ill himself. S he would not want to miss her Friday appointment with [facility], but still feels ready to discharge over the weekend especially today Plan: She has gotten 15 doses of morphine - told her that causes her itchiness - she wishes to maintain the med I did start MS Contin to help transition the pain md to PO I held off MRI or any imaging as per her request Lovenox twice a day on discharge because in anticipation for the lead reversal in Friday hence warfarin on hold Hopefully can DC tomorrow after physiatry Rounds on pain medicines especially MS Contin and fast acting pain meds so that she wont miss her scheduled lead reversal Friday at Vitals Vitals Vital Signs Date Time Temp Pulse Resp B/P (MAP) Pulse Ox O2 Delivery O2 Flow Rate FiO2 07/05/18 09:01 Room Air 07/05/18 06:31 93 07/05/18 06:16 60 141/71 (94) 07/05/18 03:00 98.1 20 98.1 Physical Exam Physical Exam Physical Exam GEN.: No apparent distress. Alert and oriented. HEENT: Head is normocephalic, atraumatic NECK: Supple. LUNGS: Clear to auscultation. HEART: RRR, S1, S2 present. Peripheral pulses intact ABDOMEN: Soft, Positive bowel sounds. severe rt side abd tenderness ,no guarding or rebound. EXTREMITIES: Without any cyanosis. no edema, + bl foot pulse, limited RT LEG ROM 2/2 rt flank pain NEUROLOGIC: Normal speech, normal tone PSYCHIATRIC: Normal affect, normal mood. SKIN: No ulcerations General: Alert, Oriented X3, Cooperative, mild distress, moderate distress Heart: Regular rate, Normal S1, Normal S2 Lungs: Clear Abdomen: Normal bowel sounds, Soft, No tenderness Extremities: No clubbing, No cyanosis, No edema Skin: No breakdown, No significant lesion, Other (LE hyperpigmentations) Review of Systems Review of Systems Back pain, the rest of ROS 14 point negative Assessment and Plan Assessmemt and Plan Problems Medical Problems: (1) Abdominal pain Status: Acute (2) Flank pain Status: Acute Comment Review of Relevant I have reviewed the following items sherman (where applicable) has been applied. Labs Laboratory Tests Test 07/04/18 06:05 07/04/18 06:20 Sodium Level 143 mmol/L (136-145) Potassium Level 3.8 mmol/L (3.5-5.1) Chloride Level 108 mmol/L (98-107) Carbon Dioxide Level 27 mmol/L (21-32) Anion Gap 8 (6-14) Blood Urea Nitrogen 22 mg/dL (7-20) Creatinine 1.2 mg/dL (0.6-1.0) Estimated GFR (Cockcroft-Gault) 54.4 Glucose Level 99 mg/dL (70-99) Calcium Level 8.8 mg/dL (8.5-10.1) White Blood Count 4.8 x10^3/uL (4.0-11.0) Red Blood Count 3.64 x10^6/uL (3.50-5.40) Hemoglobin 11.8 g/dL (12.0-15.5) Hematocrit 35.5 % (36.0-47.0) Mean Corpuscular Volume 98 fL (79-100) Mean Corpuscular Hemoglobin 33 pg (25-35) Mean Corpuscular Hemoglobin Concent 33 g/dL (31-37) Red Cell Distribution Width 13.9 % (11.5-14.5) Platelet Count 144 x10^3/uL (140-400) Neutrophils (%) (Auto) 53 % (31-73) Lymphocytes (%) (Auto) 35 % (24-48) Monocytes (%) (Auto) 12 % (0-9) Eosinophils (%) (Auto) 1 % (0-3) Basophils (%) (Auto) 1 % (0-3) Neutrophils # (Auto) 2.5 x10^3uL (1.8-7.7) Lymphocytes # (Auto) 1.7 x10^3/uL (1.0-4.8) Monocytes # (Auto) 0.6 x10^3/uL (0.0-1.1) Eosinophils # (Auto) 0.0 x10^3/uL (0.0-0.7) Basophils # (Auto) 0.0 x10^3/uL (0.0-0.2) Microbiology 06/30/18 Blood Culture - Preliminary, Resulted NO GROWTH AFTER 4 DAYS Medications Current Medications Morphine Sulfate (Morphine Sulfate) 4 mg 1X ONCE IV Last administered on at 11:44; Start 06/30/18 at 11:15; Stop 06/30/18 at 11:16; Status DC Sodium Chloride 500 ml @ 500 mls/hr 1X ONCE IV Last administered on at 12:53; Start 06/30/18 at 12:30; Stop 06/30/18 at 13:29; Status DC Morphine Sulfate (Morphine Sulfate) 4 mg 1X ONCE IV Last administered on at 13:54; Start 06/30/18 at 13:45; Stop 06/30/18 at 13:50; Status DC Ondansetron HCl (Zofran) 4 mg PRN Q8HRS PRN IV NAUSEA/VOMITING; Start 06/30/18 at 15:00; Stop 07/01/18 at 14:59; Status DC Morphine Sulfate (Morphine Sulfate) 4 mg PRN Q2HR PRN IV PAIN Last administered on 07/01/18at 14:51; Start 06/30/18 at 15:00; Stop 07/01/18 at 14:59 ; Status DC Sodium Chloride 1,000 ml @ 65 mls/hr [id number] IV Last administered on at 10:25; Start 06/30/18 at 14:46; Stop 07/01/18 at 14:45; Status DC Ceftriaxone Sodium 1 gm/ Dextrose 50 ml @ 100 mls/hr Q24H IV ; Start 06/30/18 at 15:15; Stop 06/30/18 at 15:43; Status DC Acetaminophen (Tylenol) 650 mg PRN Q6HRS PRN PO FEVER; Start 06/30/18 at 15:15 Ondansetron HCl (Zofran) 4 mg PRN Q6HRS PRN IV NAUSEA/VOMITING; Start 06/30/18 at 15:15 Morphine Sulfate (Morphine Sulfate) 2 mg PRN Q2HR PRN IV MODERATE PAIN Last administered on 07/05/18at 03:10; Start 06/30/18 at 15:15 Tramadol HCl (Ultram) 50 mg PRN Q6HRS PRN PO MILD TO MODERATE PAIN; Start 06/30 at 15:15 Docusate Sodium (Colace) 100 mg PRN DAILY PRN PO CONSTIPATION; Start 06/30/18 at 15:15 Labetalol HCl (Normodyne Iv Push) 20 mg PRN Q2HR PRN IVP HYPERTENSION, SEE COMMENTS; Start 06/30/18 at 15:15 Morphine Sulfate (Morphine Sulfate) 4 mg PRN Q2HR PRN IV SEVERE PAIN Last administered on 07/05/18at 06:31; Start 06/30/18 at 15:15 Enoxaparin Sodium (Lovenox 30mg Syringe) 30 mg Q24H SQ ; Start 06/30/18 at 16:00 ; Stop 06/30/18 at 18:50; Status DC Ceftriaxone Sodium 50 ml @ 100 mls/hr 1X ONCE IV ; Start 06/30/18 at 15:30; Stop 06/30/18 at 15:59; Status Cancel Ceftriaxone Sodium 1 gm/ Dextrose 50 ml @ 100 mls/hr Q24H IV ; Start 06/30/18 at 15:45; Status UNV Ceftriaxone Sodium (Rocephin) 1 gm Q24H IVP Last administered on 07/03/18at 17: 04; Start 06/30/18 at 16:00; Stop 07/04/18 at 10:17; Status DC Enoxaparin Sodium (Lovenox Per Pharmacy Prophylaxis Dosing) 1 each PRN DAILY PRN MC SEE COMMENTS; Start 06/30/18 at 18:45; Status Cancel Docusate Sodium (Colace) 100 mg BID PO Last administered on 07/05/18at 08:00; Start 06/30/18 at 21:00 Furosemide (Lasix) 40 mg DAILY PO ; Start 07/01/18 at 09:00; Stop 07/01/18 at 09 :00; Status DC Oxycodone/ Acetaminophen (Percocet 5/325) 1 tab PRN Q4HRS PRN PO SEVERE PAIN Last administered on 07/03/18at 02:54; Start 06/30/18 at 18:45; Stop 07/03/18 at 08:35; Status DC Zolpidem Tartrate (Ambien) 5 mg QHS PO Last administered on 07/04/18at 20:13; Start 06/30/18 at 21:00 Zolpidem Tartrate (Ambien) 5 mg PRN QHS PRN PO INSOMNIA Last administered on at 23:50; Start 06/30/18 at 19:00 Enoxaparin Sodium (Lovenox 40mg Syringe) 40 mg Q24H SQ ; Start 06/30/18 at 19:00 ; Status Cancel Enoxaparin Sodium (Lovenox Per Pharmacy Treatment Dosing) 1 each PRN DAILY PRN MC SEE COMMENTS; Start 07/01/18 at 09:00 Enoxaparin Sodium (Lovenox 60mg Syringe) 60 mg Q12HR SQ Last administered on at 08:00; Start 07/01/18 at 09:00 Info (Anti-Coagulation Monitoring By Pharmacy) 1 each PRN DAILY PRN MC SEE COMMENTS Last administered on 07/02/18at 11:06; Start 06/30/18 at 19:15 Lactobacillus Rhamnosus (Culturelle) 1 cap BID PO Last administered on at 07:59; Start 07/01/18 at 21:00 Hydrochlorothiazide (Hydrodiuril) 25 mg DAILY07 PO Last administered on at 06:13; Start 07/01/18 at 16:00 Non-Formulary Medication (Warfarin Sodium ) 1 tab QSU PO ; Start 07/05/18 at 16 :00; Stop 07/05/18 at 16:00; Status DC Non-Formulary Medication (Warfarin Sodium ) 2 mg QMWF PO ; Start 07/01/18 at 16: 00; Stop 07/01/18 at 16:00; Status DC Non-Formulary Medication (Warfarin Sodium ) 1 tab QSA PO ; Start 07/04/18 at 16 :00; Stop 07/04/18 at 16:00; Status DC Non-Formulary Medication (Warfarin Sodium ) 1 tab QTU PO ; Start 07/07/18 at 16 :00; Stop 07/07/18 at 16:00; Status DC Fluoxetine HCl (PROzac) 20 mg DAILY PO Last administered on 07/05/18at 07:59; Start 07/01/18 at 16:00 Levothyroxine Sodium (Synthroid) 50 mcg DAILY06 PO Last administered on 06:13; Start 07/02/18 at 06:00 Methylprednisolone Acetate (DEPO-Medrol 40MG VIAL) 40 mg 1X ONCE IM Last administered on 07/01/18at 17:55; Start 07/01/18 at 18:00; Stop 07/01/18 at 18:01 ; Status DC Bupivacaine HCl (Sensorcaine-Mpf 0.25%) 10 ml 1X ONCE IJ Last administered on 07/01/18at 17:54; Start 07/01/18 at 18:00; Stop 07/01/18 at 18:01; Status DC Tizanidine HCl (Zanaflex) 4 mg Q8HRS PO Last administered on 07/05/18at 06:13; Start 07/01/18 at 22:00 Prednisone (Prednisone) 10 mg DAILY PO Last administered on 07/05/18at 07:59; Start 07/01/18 at 18:00 Pantoprazole Sodium (Protonix) 40 mg DAILYAC PO Last administered on at 07:59; Start 07/01/18 at 18:00 Lidocaine (Lidoderm) 1 patch DAILY TD Last administered on 07/05/18at 08:01; Start 07/01/18 at 18:00 Miscellaneous (Lidoderm Patch Removal) 1 ea QHS MC Last administered on at 20:00; Start 07/01/18 at 21:00 Oxycodone/ Acetaminophen (Percocet 10/325) 1 tab PRN Q4HRS PRN PO Severe pain Last administered on 07/05/18at 07:59; Start 07/03/18 at 08:45 Diphenhydramine HCl (Benadryl) 25 mg PRN Q6HRS PRN PO ITCHING Last administered on 07/04/18at 20:13; Start 07/03/18 at 12:30 Methylprednisolone Acetate (DEPO-Medrol 40MG VIAL) 40 mg 1X ONCE IM ; Start at 09:45; Stop 07/04/18 at 09:46; Status DC Bupivacaine HCl (Sensorcaine-Mpf 0.25%) 10 ml 1X ONCE IJ ; Start 07/04/18 at 09:45; Stop 07/04/18 at 09:46; Status DC Methylprednisolone Acetate (DEPO-Medrol 40MG VIAL) 40 mg 1X ONCE IM ; Start at 09:45; Stop 07/04/18 at 09:46; Status DC Active Scripts Active Lidocaine 1 Each Adh..patch 1 Patch TD DAILY MDD 1 Oxycodone-Acetaminophen 10-325 (Oxycodone Hcl/Acetaminophen) 1 Each Tablet 1 Tab PO PRN Q4HRS PRN Tizanidine Hcl 4 Mg Tablet 4 Mg PO Q8HRS MDD 1 Oxycodone-Acetaminophen 5-325 (Oxycodone Hcl/Acetaminophen) 1 Each Tablet 1 Tab PO PRN Q4HRS PRN Reported Furosemide 40 Mg Tablet 1 Tab PO DAILY Ambien (Zolpidem Tartrate) 10 Mg Tablet 1 Tab PO QHS Hydrochlorothiazide Tablet (Hydrochlorothiazide) 25 Mg Tablet 25 Mg PO Colace (Docusate Sodium) 100 Mg Capsule 100 Mg PO Lexapro (Escitalopram Oxalate) 20 Mg Tablet 20 Mg PO Simvastatin 20 Mg Tablet 20 Mg PO Levothyroxine Sodium 50 Mcg Tablet 50 Mcg PO Vitals/I & O Vital Sign - Last 24 Hours 07/04/18 07/04/18 07/04/18 07/04/18 12:01 15:13 16:58 19:00 Temp 98.8 98.2 98.8 98.2 Pulse 90 64 Resp 18 20 B/P (MAP) 130/79 (96) 123/73 (90) Pulse Ox 96 93 O2 Delivery Room Air Room Air Room Air Room Air 07/04/18 07/04/18 07/04/18 07/04/18 20:01 20:14 21:15 23:00 Temp 97.9 97.9 Pulse 61 Resp 20 B/P (MAP) 147/88 (107) Pulse Ox 93 93 97 O2 Delivery Room Air Room Air Room Air 07/04/18 07/04/18 07/05/18 07/05/18 23:09 23:55 03:00 03:10 Temp 98.1 98.1 Pulse 61 Resp 20 B/P (MAP) 132/79 (96) Pulse Ox 93 93 100 93 O2 Delivery Room Air Room Air Room Air 07/05/18 07/05/18 07/05/18 07/05/18 03:51 06:16 06:31 07:16 Pulse 60 B/P (MAP) 141/71 (94) Pulse Ox 93 93 O2 Delivery Room Air Room Air Room Air 07/05/18 07/05/18 07/05/18 07:59 08:00 09:01 O2 Delivery Room Air Room Air Room Air Intake and Output 07/04/18 07/04/18 07/05/18 15:00 23:00 07:00 Intake Total 720 ml 180 ml 300 ml Balance 720 ml 180 ml 300 ml BERNARDO MERRITT MD Jul 05, 2018 11:13
[2018-07-05] MEDS ORDERED: MAGNESIUM HYDROXIDE 2,400 MG/30 ML ORAL.SUSP. PO PRN (11:15)
[2018-07-05] MEDS ORDERED: POLYETHYLENE GLYCOL 3350 17 GM PACKET. PO PRN (11:15)
[2018-07-05] MEDS: MORPHINE ER 15 MG TABLET.ER PO SCH ×2 (11:27→19:56)
[2018-07-05 11:32] VITALS: BP 135/69
[2018-07-05 15:00] VITALS: BP 139/77
[2018-07-05] MEDS ORDERED: NON FORMULARY ITEM (Warfarin Sodium 1 TAB) PO SCH (16:00)
[2018-07-05 19:00] VITALS: BP 140/80
[2018-07-05] MEDS: ZOLPIDEM 5 MG TABLET. PO SCH (19:55)
[2018-07-05] MEDS: PATCH REMOVAL. MC SCH (19:56)
[2018-07-05] MEDS: ZOLPIDEM 5 MG TABLET. PO PRN (21:12)
[2018-07-05 23:00] VITALS: BP 125/84
[2018-07-06] MEDS: oxyCODONE/APAP 10/325 1 TAB TABLET PO PRN ×4 (02:04→22:54)
[2018-07-06] MEDS: diphenhydrAMINE HCL 25 MG CAPSULE PO PRN ×2 (02:05→22:53)
[2018-07-06 03:00] VITALS: BP 152/88
[2018-07-06] MEDS: MORPHINE SULFATE 4 MG/ML VIAL. IV PRN (04:38)
[2018-07-06 04:57] LABS: PROTHROMBIN TIME PATIENT 15.1 SEC (11.7-14.0)
[2018-07-06] MEDS: tiZANidine 4 MG TABLET. PO SCH ×3 (05:07→19:54)
[2018-07-06] MEDS: LEVOTHYROXINE 50 MCG TABLET PO SCH (05:07)
[2018-07-06 07:00] VITALS: BP 158/86
--- NOTE | 2018-07-06 08:01 | PDOC ---
SUBJECTIVE Subjective Right hip pain OBJECTIVE Objective 68yo female C/O right hip/thigh pain CT with DDD lumbar spine Vital Signs Vital Signs Date Time Temp Pulse Resp B/P (MAP) Pulse Ox O2 Delivery O2 Flow Rate FiO2 07/06/18 07:00 97.7 60 18 158/86 (110) 98 Room Air 97.7 07/06/18 06:02 Room Air 07/06/18 05:13 Room Air 07/06/18 03:44 Room Air 07/06/18 03:00 98.8 61 20 152/88 (109) 98 Room Air 98.8 07/06/18 02:04 Room Air 07/05/18 23:58 Room Air 07/05/18 23:00 97.9 62 20 125/84 (98) 97 Room Air 97.9 07/05/18 20:00 Room Air 07/05/18 19:56 Room Air 07/05/18 19:00 98.1 60 20 140/80 (100) 99 Room Air 98.1 07/05/18 17:39 Room Air 07/05/18 15:10 Room Air 07/05/18 15:00 98.2 90 19 139/77 (97) 97 Room Air 98.2 07/05/18 11:32 98.2 91 20 135/69 (91) 99 Room Air 98.2 07/05/18 11:27 Room Air 07/05/18 08:00 Room Air 07/05/18 07:59 Room Air I & O Intake and Output 07/06/18 07:00 Intake Total 1420 ml Output Total 500 ml Balance 920 ml Intake Oral 1420 ml Output Urine Total 500 ml # Voids 4 # Bowel Movements 2 ASSESSMENT/PLAN Assessment/Plan REC: Pt. may benefit from LESI, if deemed safe to hold lovenox 24hr prior COMMENT Lab Laboratory Tests Test 07/06/18 03:55 Prothrombin Time 15.1 SEC (11.7-14.0) Prothromb Time International Ratio 1.2 (0.8-1.1) CIERA LAU MD Jul 06, 2018 08:01
[2018-07-06] MEDS: LACTOBACILLUS RHAMNOSUS GG 1 CAPSULE. PO SCH ×2 (08:05→19:54)
[2018-07-06] MEDS: DOCUSATE SODIUM 100 MG CAPSULE. PO SCH ×2 (08:05→19:54)
[2018-07-06] MEDS: hydroCHLOROthiazide 25 MG TABLET PO SCH (08:05)
[2018-07-06] MEDS: PANTOPRAZOLE 40 MG TABLET.DR. PO SCH (08:06)
[2018-07-06] MEDS: MORPHINE ER 15 MG TABLET.ER PO SCH ×2 (08:06→19:55)
[2018-07-06] MEDS: predniSONE 10 MG TABLET PO SCH (08:06)
[2018-07-06] MEDS: FLUoxetine HCL 20 MG CAPSULE PO SCH (08:06)
[2018-07-06] MEDS: LIDOCAINE (700MG/PATCH) PATCH. TD SCH (08:07)
[2018-07-06 11:00] VITALS: BP 136/84
[2018-07-06] MEDS: MORPHINE SULFATE 2 MG/ML VIAL. IV PRN (11:34)
--- NOTE | 2018-07-06 12:31 | PDOC ---
PROGRESS NOTES Subjective Subjective She admits continued low back and right thigh area pain. Objective Objective Vital Signs Date Time Temp Pulse Resp B/P (MAP) Pulse Ox O2 Delivery O2 Flow Rate FiO2 07/06/18 11:34 20 93 Room Air 07/06/18 11:00 98.5 61 136/84 (101) 98.5 Intake and Output 07/06/18 07:00 Intake Total 1420 ml Output Total 500 ml Balance 920 ml Intake Oral 1420 ml Output Urine Total 500 ml # Voids 4 # Bowel Movements 2 Physical Exam Physical Exam She is alert and supine in bed and protecting her low back and right hip and she had painfully limited lumbar spine ROM and tenderness to palpation over right lumbar paraspinal muscles and sacroiliac joint. No change with her neurological examination of her lower extremities. Assessment Assessment Problems Medical Problems: (1) Abdominal pain Status: Acute (2) Flank pain Status: Acute Plan Plan of Care To see how she does with lumbar epidural steroid injections and to continue physical therapy and hopefully home after epidural steroid injection tomorrow. Comment Review of Relevant I have reviewed the following items sherman (where applicable) has been applied. Labs Laboratory Tests Test 07/06/18 03:55 Prothrombin Time 15.1 SEC (11.7-14.0) Prothromb Time International Ratio 1.2 (0.8-1.1) Laboratory Tests Test 07/06/18 03:55 Prothrombin Time 15.1 SEC (11.7-14.0) Prothromb Time International Ratio 1.2 (0.8-1.1) Microbiology 06/30/18 Blood Culture - Final, Complete NO GROWTH AFTER 5 DAYS Medications Current Medications Morphine Sulfate (Morphine Sulfate) 4 mg 1X ONCE IV Last administered on at 11:44; Start 06/30/18 at 11:15; Stop 06/30/18 at 11:16; Status DC Sodium Chloride 500 ml @ 500 mls/hr 1X ONCE IV Last administered on at 12:53; Start 06/30/18 at 12:30; Stop 06/30/18 at 13:29; Status DC Morphine Sulfate (Morphine Sulfate) 4 mg 1X ONCE IV Last administered on at 13:54; Start 06/30/18 at 13:45; Stop 06/30/18 at 13:50; Status DC Ondansetron HCl (Zofran) 4 mg PRN Q8HRS PRN IV NAUSEA/VOMITING; Start 06/30/18 at 15:00; Stop 07/01/18 at 14:59; Status DC Morphine Sulfate (Morphine Sulfate) 4 mg PRN Q2HR PRN IV PAIN Last administered on 07/01/18at 14:51; Start 06/30/18 at 15:00; Stop 07/01/18 at 14:59 ; Status DC Sodium Chloride 1,000 ml @ 65 mls/hr [id number] IV Last administered on at 10:25; Start 06/30/18 at 14:46; Stop 07/01/18 at 14:45; Status DC Ceftriaxone Sodium 1 gm/ Dextrose 50 ml @ 100 mls/hr Q24H IV ; Start 06/30/18 at 15:15; Stop 06/30/18 at 15:43; Status DC Acetaminophen (Tylenol) 650 mg PRN Q6HRS PRN PO FEVER; Start 06/30/18 at 15:15 Ondansetron HCl (Zofran) 4 mg PRN Q6HRS PRN IV NAUSEA/VOMITING Last administered on 07/05/18at 21:34; Start 06/30/18 at 15:15 Morphine Sulfate (Morphine Sulfate) 2 mg PRN Q2HR PRN IV MODERATE PAIN Last administered on 07/06/18at 11:34; Start 06/30/18 at 15:15 Tramadol HCl (Ultram) 50 mg PRN Q6HRS PRN PO MILD TO MODERATE PAIN; Start 06/30 at 15:15 Docusate Sodium (Colace) 100 mg PRN DAILY PRN PO CONSTIPATION 1ST CHOICE; Start 06/30/18 at 15:15 Labetalol HCl (Normodyne Iv Push) 20 mg PRN Q2HR PRN IVP HYPERTENSION, SEE COMMENTS; Start 06/30/18 at 15:15 Morphine Sulfate (Morphine Sulfate) 4 mg PRN Q2HR PRN IV SEVERE PAIN Last administered on 07/06/18at 04:38; Start 06/30/18 at 15:15 Enoxaparin Sodium (Lovenox 30mg Syringe) 30 mg Q24H SQ ; Start 06/30/18 at 16:00 ; Stop 06/30/18 at 18:50; Status DC Ceftriaxone Sodium 50 ml @ 100 mls/hr 1X ONCE IV ; Start 06/30/18 at 15:30; Stop 06/30/18 at 15:59; Status Cancel Ceftriaxone Sodium 1 gm/ Dextrose 50 ml @ 100 mls/hr Q24H IV ; Start 06/30/18 at 15:45; Status UNV Ceftriaxone Sodium (Rocephin) 1 gm Q24H IVP Last administered on 07/03/18at 17: 04; Start 06/30/18 at 16:00; Stop 07/04/18 at 10:17; Status DC Enoxaparin Sodium (Lovenox Per Pharmacy Prophylaxis Dosing) 1 each PRN DAILY PRN MC SEE COMMENTS; Start 06/30/18 at 18:45; Status Cancel Docusate Sodium (Colace) 100 mg BID PO Last administered on 07/06/18at 08:05; Start 06/30/18 at 21:00 Furosemide (Lasix) 40 mg DAILY PO ; Start 07/01/18 at 09:00; Stop 07/01/18 at 09 :00; Status DC Oxycodone/ Acetaminophen (Percocet 5/325) 1 tab PRN Q4HRS PRN PO SEVERE PAIN Last administered on 07/03/18at 02:54; Start 06/30/18 at 18:45; Stop 07/03/18 at 08:35; Status DC Zolpidem Tartrate (Ambien) 5 mg QHS PO Last administered on 07/05/18at 19:55; Start 06/30/18 at 21:00 Zolpidem Tartrate (Ambien) 5 mg PRN QHS PRN PO INSOMNIA Last administered on at 21:12; Start 06/30/18 at 19:00 Enoxaparin Sodium (Lovenox 40mg Syringe) 40 mg Q24H SQ ; Start 06/30/18 at 19:00 ; Status Cancel Enoxaparin Sodium (Lovenox Per Pharmacy Treatment Dosing) 1 each PRN DAILY PRN MC SEE COMMENTS; Start 07/01/18 at 09:00 Enoxaparin Sodium (Lovenox 60mg Syringe) 60 mg Q12HR SQ Last administered on at 19:56; Start 07/01/18 at 09:00; Stop 07/06/18 at 11:33; Status DC Info (Anti-Coagulation Monitoring By Pharmacy) 1 each PRN DAILY PRN MC SEE COMMENTS Last administered on 07/02/18at 11:06; Start 06/30/18 at 19:15 Lactobacillus Rhamnosus (Culturelle) 1 cap BID PO Last administered on at 08:05; Start 07/01/18 at 21:00 Hydrochlorothiazide (Hydrodiuril) 25 mg DAILY07 PO Last administered on at 08:05; Start 07/01/18 at 16:00 Non-Formulary Medication (Warfarin Sodium ) 1 tab QSU PO ; Start 07/05/18 at 16 :00; Stop 07/05/18 at 16:00; Status DC Non-Formulary Medication (Warfarin Sodium ) 2 mg QMWF PO ; Start 07/01/18 at 16: 00; Stop 07/01/18 at 16:00; Status DC Non-Formulary Medication (Warfarin Sodium ) 1 tab QSA PO ; Start 07/04/18 at 16 :00; Stop 07/04/18 at 16:00; Status DC Non-Formulary Medication (Warfarin Sodium ) 1 tab QTU PO ; Start 07/07/18 at 16 :00; Stop 07/07/18 at 16:00; Status DC Fluoxetine HCl (PROzac) 20 mg DAILY PO Last administered on 07/06/18at 08:06; Start 07/01/18 at 16:00 Levothyroxine Sodium (Synthroid) 50 mcg DAILY06 PO Last administered on at 05:07; Start 07/02/18 at 06:00 Methylprednisolone Acetate (DEPO-Medrol 40MG VIAL) 40 mg 1X ONCE IM Last administered on 07/01/18at 17:55; Start 07/01/18 at 18:00; Stop 07/01/18 at 18:01 ; Status DC Bupivacaine HCl (Sensorcaine-Mpf 0.25%) 10 ml 1X ONCE IJ Last administered on 07/01/18at 17:54; Start 07/01/18 at 18:00; Stop 07/01/18 at 18:01; Status DC Tizanidine HCl (Zanaflex) 4 mg Q8HRS PO Last administered on 07/06/18 05:07; Start 07/01/18 at 22:00 Prednisone (Prednisone) 10 mg DAILY PO Last administered on 07/06/18 08:06; Start 07/01/18 at 18:00 Pantoprazole Sodium (Protonix) 40 mg DAILYAC PO Last administered on at 08:06; Start 07/01/18 at 18:00 Lidocaine (Lidoderm) 1 patch DAILY TD Last administered on 07/06/18at 08:07; Start 07/01/18 at 18:00 Miscellaneous (Lidoderm Patch Removal) 1 ea QHS MC Last administered on at 19:56; Start 07/01/18 at 21:00 Oxycodone/ Acetaminophen (Percocet 10/325) 1 tab PRN Q4HRS PRN PO Severe pain Last administered on 07/06/18at 06:02; Start 07/03/18 at 08:45 Diphenhydramine HCl (Benadryl) 25 mg PRN Q6HRS PRN PO ITCHING Last administered on 07/06/18at 02:05; Start 07/03/18 at 12:30 Methylprednisolone Acetate (DEPO-Medrol 40MG VIAL) 40 mg 1X ONCE IM ; Start at 09:45; Stop 07/04/18 at 09:46; Status DC Bupivacaine HCl (Sensorcaine-Mpf 0.25%) 10 ml 1X ONCE IJ ; Start 07/04/18 at 09:45; Stop 07/04/18 at 09:46; Status DC Methylprednisolone Acetate (DEPO-Medrol 40MG VIAL) 40 mg 1X ONCE IM ; Start at 09:45; Stop 07/04/18 at 09:46; Status DC Morphine Sulfate (Ms Contin) 15 mg BID PO Last administered on 07/06/18at 08:06 ; Start 07/05/18 at 12:00 Warfarin Sodium (Coumadin Per Pharmacy) 1 each PRN DAILY PRN MC SEE COMMENTS; Start 07/05/18 at 11:15; Stop 07/05/18 at 11:15; Status DC Polyethylene Glycol (miraLAX PACKET) 17 gm PRN DAILY PRN PO CONSTIPATION 2ND CHOICE; Start 07/05/18 at 11:15 Magnesium Hydroxide (Milk Of Magnesia) 2,400 mg PRN DAILY PRN PO CONSTIPATION 3RD CHOICE; Start 07/05/18 at 11:15 Bupivacaine HCl (Sensorcaine-Mpf 0.25%) 10 ml STK-MED ONCE .ROUTE ; Start 07/04 at 10:00; Stop 07/05/18 at 16:05; Status DC Methylprednisolone Acetate (DEPO-Medrol 40MG VIAL) 40 mg STK-MED ONCE .ROUTE ; Start 07/04/18 at 10:00; Stop 07/05/18 at 16:05; Status DC Methylprednisolone Acetate (DEPO-Medrol 40MG VIAL) 40 mg STK-MED ONCE .ROUTE ; Start 07/04/18 at 10:00; Stop 07/05/18 at 16:05; Status DC Active Scripts Active Lidocaine 1 Each Adh..patch 1 Patch TD DAILY MDD 1 Oxycodone-Acetaminophen 10-325 (Oxycodone Hcl/Acetaminophen) 1 Each Tablet 1 Tab PO PRN Q4HRS PRN Tizanidine Hcl 4 Mg Tablet 4 Mg PO Q8HRS MDD 1 Oxycodone-Acetaminophen 5-325 (Oxycodone Hcl/Acetaminophen) 1 Each Tablet 1 Tab PO PRN Q4HRS PRN Reported Furosemide 40 Mg Tablet 1 Tab PO DAILY Ambien (Zolpidem Tartrate) 10 Mg Tablet 1 Tab PO QHS Hydrochlorothiazide Tablet (Hydrochlorothiazide) 25 Mg Tablet 25 Mg PO Colace (Docusate Sodium) 100 Mg Capsule 100 Mg PO Lexapro (Escitalopram Oxalate) 20 Mg Tablet 20 Mg PO Simvastatin 20 Mg Tablet 20 Mg PO Levothyroxine Sodium 50 Mcg Tablet 50 Mcg PO Vitals/I & O Vital Sign - Last 24 Hours 07/05/18 07/05/18 07/05/18 07/05/18 15:00 15:10 17:39 19:00 Temp 98.2 98.1 98.2 98.1 Pulse 90 60 Resp 19 20 B/P (MAP) 139/77 (97) 140/80 (100) Pulse Ox 97 99 O2 Delivery Room Air Room Air Room Air Room Air 07/05/18 07/05/18 07/05/18 07/05/18 19:56 20:00 23:00 23:58 Temp 97.9 97.9 Pulse 62 Resp 20 B/P (MAP) 125/84 (98) Pulse Ox 97 O2 Delivery Room Air Room Air Room Air Room Air 07/06/18 07/06/18 07/06/18 07/06/18 02:04 03:00 03:44 05:13 Temp 98.8 98.8 Pulse 61 Resp 20 B/P (MAP) 152/88 (109) Pulse Ox 98 O2 Delivery Room Air Room Air Room Air Room Air 07/06/18 07/06/18 07/06/18 07/06/18 06:02 07:00 08:00 08:06 Temp 97.7 97.7 Pulse 60 Resp 18 20 B/P (MAP) 158/86 (110) Pulse Ox 98 93 O2 Delivery Room Air Room Air Room Air Room Air 07/06/18 07/06/18 11:00 11:34 Temp 98.5 98.5 Pulse 61 Resp 16 20 B/P (MAP) 136/84 (101) Pulse Ox 92 93 O2 Delivery Room Air Room Air Intake and Output 07/05/18 07/05/18 07/06/18 15:00 23:00 07:00 Intake Total 360 ml 600 ml 460 ml Output Total 500 ml Balance 360 ml 600 ml -40 ml STEPHANIE MERCEDES MD Jul 06, 2018 12:31
--- NOTE | 2018-07-06 12:32 | PDOC ---
PROGRESS NOTES Chief Complaint Chief Complaint Rt abdominal Pain, Rt flank pain, numbness and tingling radiating to rt lower extremity History of Present Illness History of Present Illness Pt seen at bedside, tearful and in pain from lower back and right hip. Pt ambulator with some assistance, had just completed a BM. Pt is scheduled to go to on Friday for Indwelling pacer with lead reversal placement. DW nurse Dr. Joseluis Aguillon Pain management was consulted, may benefit from LESI, if deemed safe to be off Lovenox for 24 hours Cardiology/physiatry/ and Pain on board Vitals Vitals Vital Signs Date Time Temp Pulse Resp B/P (MAP) Pulse Ox O2 Delivery O2 Flow Rate FiO2 07/06/18 11:34 20 93 Room Air 07/06/18 11:00 98.5 61 136/84 (101) 98.5 Physical Exam Physical Exam Physical Exam General: Alert, Oriented X3, Cooperative, moderate distress (tearful) Heart: Regular rate, Normal S1, Normal S2 Lungs: Clear Abdomen: Normal bowel sounds, Soft, No tenderness Extremities: No clubbing, No cyanosis, No edema Skin: No breakdown, No significant lesion, Other (LE hyperpigmentations) Labs LABS Laboratory Tests Test 07/06/18 03:55 Prothrombin Time 15.1 SEC (11.7-14.0) Prothromb Time International Ratio 1.2 (0.8-1.1) Review of Systems Review of Systems General: denies fever, chills, unexplained wt loss Cardio: Denies chest pain, palpitations Pulm: denies sob Assessment and Plan Assessmemt and Plan Problems Sciatica right leg Acute on chronic lumbago - s/p inj 07/04/18 - NO IMPROVEMENT Negative urine culture Moderate scattered degenerative changes in the lower lumbar spine with mild to moderate central spinal stenosis at L3-4 and to a lesser degree at L4-5. INDWELLING PACER WITH LEAD REVERSAL PLANNED by [facility] ON FRIDAY - WARF on hold and transitioned to lovenox BID MECH MV? CM on OAC GEN WEAKNESS Plan CT Narcotics PRN for pain CT DVT prophylaxis CT Lovenox CT cardiac diet Ordered CBC Ordered BMP to trend electrolytes and Kidney function, previous BUN/CR from were 22 and 1.2 Appreciate Physiatry input Appreciate Cardiology input Appreciate Pain management input- Per Dr. Aguillon- may benefit from LESI if deemed safe to stop lovenox for [address] PT/OT CT home meds Comment Review of Relevant I have reviewed the following items sherman (where applicable) has been applied. Labs Laboratory Tests Test 07/06/18 03:55 Prothrombin Time 15.1 SEC (11.7-14.0) Prothromb Time International Ratio 1.2 (0.8-1.1) Laboratory Tests Test 07/06/18 03:55 Prothrombin Time 15.1 SEC (11.7-14.0) Prothromb Time International Ratio 1.2 (0.8-1.1) Microbiology 06/30/18 Blood Culture - Final, Complete NO GROWTH AFTER 5 DAYS Medications Current Medications Morphine Sulfate (Morphine Sulfate) 4 mg 1X ONCE IV Last administered on at 11:44; Start 06/30/18 at 11:15; Stop 06/30/18 at 11:16; Status DC Sodium Chloride 500 ml @ 500 mls/hr 1X ONCE IV Last administered on at 12:53; Start 06/30/18 at 12:30; Stop 06/30/18 at 13:29; Status DC Morphine Sulfate (Morphine Sulfate) 4 mg 1X ONCE IV Last administered on at 13:54; Start 06/30/18 at 13:45; Stop 06/30/18 at 13:50; Status DC Ondansetron HCl (Zofran) 4 mg PRN Q8HRS PRN IV NAUSEA/VOMITING; Start 06/30/18 at 15:00; Stop 07/01/18 at 14:59; Status DC Morphine Sulfate (Morphine Sulfate) 4 mg PRN Q2HR PRN IV PAIN Last administered on 07/01/18at 14:51; Start 06/30/18 at 15:00; Stop 07/01/18 at 14:59 ; Status DC Sodium Chloride 1,000 ml @ 65 mls/hr [id number] IV Last administered on at 10:25; Start 06/30/18 at 14:46; Stop 07/01/18 at 14:45; Status DC Ceftriaxone Sodium 1 gm/ Dextrose 50 ml @ 100 mls/hr Q24H IV ; Start 06/30/18 at 15:15; Stop 06/30/18 at 15:43; Status DC Acetaminophen (Tylenol) 650 mg PRN Q6HRS PRN PO FEVER; Start 06/30/18 at 15:15 Ondansetron HCl (Zofran) 4 mg PRN Q6HRS PRN IV NAUSEA/VOMITING Last administered on 07/05/18at 21:34; Start 06/30/18 at 15:15 Morphine Sulfate (Morphine Sulfate) 2 mg PRN Q2HR PRN IV MODERATE PAIN Last administered on 07/06/18at 11:34; Start 06/30/18 at 15:15 Tramadol HCl (Ultram) 50 mg PRN Q6HRS PRN PO MILD TO MODERATE PAIN; Start 06/30 at 15:15 Docusate Sodium (Colace) 100 mg PRN DAILY PRN PO CONSTIPATION 1ST CHOICE; Start 06/30/18 at 15:15 Labetalol HCl (Normodyne Iv Push) 20 mg PRN Q2HR PRN IVP HYPERTENSION, SEE COMMENTS; Start 06/30/18 at 15:15 Morphine Sulfate (Morphine Sulfate) 4 mg PRN Q2HR PRN IV SEVERE PAIN Last administered on 07/06/18at 04:38; Start 06/30/18 at 15:15 Enoxaparin Sodium (Lovenox 30mg Syringe) 30 mg Q24H SQ ; Start 06/30/18 at 16:00 ; Stop 06/30/18 at 18:50; Status DC Ceftriaxone Sodium 50 ml @ 100 mls/hr 1X ONCE IV ; Start 06/30/18 at 15:30; Stop 06/30/18 at 15:59; Status Cancel Ceftriaxone Sodium 1 gm/ Dextrose 50 ml @ 100 mls/hr Q24H IV ; Start 06/30/18 at 15:45; Status UNV Ceftriaxone Sodium (Rocephin) 1 gm Q24H IVP Last administered on 07/03/18at 17: 04; Start 06/30/18 at 16:00; Stop 07/04/18 at 10:17; Status DC Enoxaparin Sodium (Lovenox Per Pharmacy Prophylaxis Dosing) 1 each PRN DAILY PRN MC SEE COMMENTS; Start 06/30/18 at 18:45; Status Cancel Docusate Sodium (Colace) 100 mg BID PO Last administered on 07/06/18at 08:05; Start 06/30/18 at 21:00 Furosemide (Lasix) 40 mg DAILY PO ; Start 07/01/18 at 09:00; Stop 07/01/18 at 09 :00; Status DC Oxycodone/ Acetaminophen (Percocet 5/325) 1 tab PRN Q4HRS PRN PO SEVERE PAIN Last administered on 07/03/18at 02:54; Start 06/30/18 at 18:45; Stop 07/03/18 at 08:35; Status DC Zolpidem Tartrate (Ambien) 5 mg QHS PO Last administered on 07/05/18at 19:55; Start 06/30/18 at 21:00 Zolpidem Tartrate (Ambien) 5 mg PRN QHS PRN PO INSOMNIA Last administered on at 21:12; Start 06/30/18 at 19:00 Enoxaparin Sodium (Lovenox 40mg Syringe) 40 mg Q24H SQ ; Start 06/30/18 at 19:00 ; Status Cancel Enoxaparin Sodium (Lovenox Per Pharmacy Treatment Dosing) 1 each PRN DAILY PRN MC SEE COMMENTS; Start 07/01/18 at 09:00 Enoxaparin Sodium (Lovenox 60mg Syringe) 60 mg Q12HR SQ Last administered on at 19:56; Start 07/01/18 at 09:00; Stop 07/06/18 at 11:33; Status DC Info (Anti-Coagulation Monitoring By Pharmacy) 1 each PRN DAILY PRN MC SEE COMMENTS Last administered on 07/02/18at 11:06; Start 06/30/18 at 19:15 Lactobacillus Rhamnosus (Culturelle) 1 cap BID PO Last administered on at 08:05; Start 07/01/18 at 21:00 Hydrochlorothiazide (Hydrodiuril) 25 mg DAILY07 PO Last administered on at 08:05; Start 07/01/18 at 16:00 Non-Formulary Medication (Warfarin Sodium ) 1 tab QSU PO ; Start 07/05/18 at 16 :00; Stop 07/05/18 at 16:00; Status DC Non-Formulary Medication (Warfarin Sodium ) 2 mg QMWF PO ; Start 07/01/18 at 16: 00; Stop 07/01/18 at 16:00; Status DC Non-Formulary Medication (Warfarin Sodium ) 1 tab QSA PO ; Start 07/04/18 at 16 :00; Stop 07/04/18 at 16:00; Status DC Non-Formulary Medication (Warfarin Sodium ) 1 tab QTU PO ; Start 07/07/18 at 16 :00; Stop 07/07/18 at 16:00; Status DC Fluoxetine HCl (PROzac) 20 mg DAILY PO Last administered on 07/06/18 08:06; Start 07/01/18 at 16:00 Levothyroxine Sodium (Synthroid) 50 mcg DAILY06 PO Last administered on 05:07; Start 07/02/18 at 06:00 Methylprednisolone Acetate (DEPO-Medrol 40MG VIAL) 40 mg 1X ONCE IM Last administered on 07/01/18 17:55; Start 07/01/18 at 18:00; Stop 07/01/18 at 18:01 ; Status DC Bupivacaine HCl (Sensorcaine-Mpf 0.25%) 10 ml 1X ONCE IJ Last administered on 07/01/18at 17:54; Start 07/01/18 at 18:00; Stop 07/01/18 at 18:01; Status DC Tizanidine HCl (Zanaflex) 4 mg Q8HRS PO Last administered on 07/06/18 05:07; Start 07/01/18 at 22:00 Prednisone (Prednisone) 10 mg DAILY PO Last administered on 07/06/18 08:06; Start 07/01/18 at 18:00 Pantoprazole Sodium (Protonix) 40 mg DAILYAC PO Last administered on 08:06; Start 07/01/18 at 18:00 Lidocaine (Lidoderm) 1 patch DAILY TD Last administered on 07/06/18 08:07; Start 07/01/18 at 18:00 Miscellaneous (Lidoderm Patch Removal) 1 ea QHS MC Last administered on 19:56; Start 07/01/18 at 21:00 Oxycodone/ Acetaminophen (Percocet 10/325) 1 tab PRN Q4HRS PRN PO Severe pain Last administered on 07/06/18 06:02; Start 07/03/18 at 08:45 Diphenhydramine HCl (Benadryl) 25 mg PRN Q6HRS PRN PO ITCHING Last administered on 11/12/18at 02:05; Start 07/03/18 at 12:30 Methylprednisolone Acetate (DEPO-Medrol 40MG VIAL) 40 mg 1X ONCE IM ; Start at 09:45; Stop 07/04/18 at 09:46; Status DC Bupivacaine HCl (Sensorcaine-Mpf 0.25%) 10 ml 1X ONCE IJ ; Start 07/04/18 at 09:45; Stop 07/04/18 at 09:46; Status DC Methylprednisolone Acetate (DEPO-Medrol 40MG VIAL) 40 mg 1X ONCE IM ; Start at 09:45; Stop 07/04/18 at 09:46; Status DC Morphine Sulfate (Ms Contin) 15 mg BID PO Last administered on 07/06/18at 08:06 ; Start 07/05/18 at 12:00 Warfarin Sodium (Coumadin Per Pharmacy) 1 each PRN DAILY PRN MC SEE COMMENTS; Start 07/05/18 at 11:15; Stop 07/05/18 at 11:15; Status DC Polyethylene Glycol (miraLAX PACKET) 17 gm PRN DAILY PRN PO CONSTIPATION 2ND CHOICE; Start 07/05/18 at 11:15 Magnesium Hydroxide (Milk Of Magnesia) 2,400 mg PRN DAILY PRN PO CONSTIPATION 3RD CHOICE; Start 07/05/18 at 11:15 Bupivacaine HCl (Sensorcaine-Mpf 0.25%) 10 ml STK-MED ONCE .ROUTE ; Start 07/04 at 10:00; Stop 07/05/18 at 16:05; Status DC Methylprednisolone Acetate (DEPO-Medrol 40MG VIAL) 40 mg STK-MED ONCE .ROUTE ; Start 07/04/18 at 10:00; Stop 07/05/18 at 16:05; Status DC Methylprednisolone Acetate (DEPO-Medrol 40MG VIAL) 40 mg STK-MED ONCE .ROUTE ; Start 07/04/18 at 10:00; Stop 07/05/18 at 16:05; Status DC Active Scripts Active Lidocaine 1 Each Adh..patch 1 Patch TD DAILY MDD 1 Oxycodone-Acetaminophen 10-325 (Oxycodone Hcl/Acetaminophen) 1 Each Tablet 1 Tab PO PRN Q4HRS PRN Tizanidine Hcl 4 Mg Tablet 4 Mg PO Q8HRS MDD 1 Oxycodone-Acetaminophen 5-325 (Oxycodone Hcl/Acetaminophen) 1 Each Tablet 1 Tab PO PRN Q4HRS PRN Reported Furosemide 40 Mg Tablet 1 Tab PO DAILY Ambien (Zolpidem Tartrate) 10 Mg Tablet 1 Tab PO QHS Hydrochlorothiazide Tablet (Hydrochlorothiazide) 25 Mg Tablet 25 Mg PO Colace (Docusate Sodium) 100 Mg Capsule 100 Mg PO Lexapro (Escitalopram Oxalate) 20 Mg Tablet 20 Mg PO Simvastatin 20 Mg Tablet 20 Mg PO Levothyroxine Sodium 50 Mcg Tablet 50 Mcg PO Vitals/I & O Vital Sign - Last 24 Hours 07/05/18 07/05/18 07/05/18 07/05/18 15:00 15:10 17:39 19:00 Temp 98.2 98.1 98.2 98.1 Pulse 90 60 Resp 19 20 B/P (MAP) 139/77 (97) 140/80 (100) Pulse Ox 97 99 O2 Delivery Room Air Room Air Room Air Room Air 07/05/18 07/05/18 07/05/18 07/05/18 19:56 20:00 23:00 23:58 Temp 97.9 97.9 Pulse 62 Resp 20 B/P (MAP) 125/84 (98) Pulse Ox 97 O2 Delivery Room Air Room Air Room Air Room Air 07/06/18 07/06/18 07/06/18 07/06/18 02:04 03:00 03:44 05:13 Temp 98.8 98.8 Pulse 61 Resp 20 B/P (MAP) 152/88 (109) Pulse Ox 98 O2 Delivery Room Air Room Air Room Air Room Air 07/06/18 07/06/18 07/06/18 07/06/18 06:02 07:00 08:06 11:00 Temp 97.7 98.5 97.7 98.5 Pulse 60 61 Resp 18 20 16 B/P (MAP) 158/86 (110) 136/84 (101) Pulse Ox 98 93 92 O2 Delivery Room Air Room Air Room Air Room Air 07/06/18 11:34 Resp 20 Pulse Ox 93 O2 Delivery Room Air Intake and Output 07/05/18 07/05/18 07/06/18 15:00 23:00 07:00 Intake Total 360 ml 600 ml 460 ml Output Total 500 ml Balance 360 ml 600 ml -40 ml CASTLE,NIAL K III DO Jul 06, 2018 12:31
[2018-07-06 15:00] VITALS: BP 137/81
[2018-07-06 19:00] VITALS: BP 153/81
[2018-07-06] MEDS: ZOLPIDEM 5 MG TABLET. PO SCH (19:54)
[2018-07-06] MEDS: ZOLPIDEM 5 MG TABLET. PO PRN (19:54)
[2018-07-06] MEDS: PATCH REMOVAL. MC SCH (19:55)
[2018-07-06 23:00] VITALS: BP 111/61
[2018-07-07] MEDS: MORPHINE SULFATE 4 MG/ML VIAL. IV PRN (01:29)
[2018-07-07 03:00] VITALS: BP 123/65
[2018-07-07] MEDS: oxyCODONE/APAP 10/325 1 TAB TABLET PO PRN (03:53)
[2018-07-07 04:52] LABS: BASO % 0 % (0-3); EOS % 1 % (0-3); HEMATOCRIT 38.4 % (36.0-47.0); HEMOGLOBIN 12.8 g/dL (12.0-15.5); LYMPH # 1.5 x10^3/uL (1.0-4.8); LYMPH % 27 % (24-48); MEAN CORPUSCULAR HEMOGLOBIN 33 pg (25-35); MEAN CORPUSCULAR HGB CONC 33 g/dL (31-37); MEAN CORPUSCULAR VOLUME 98 fL (79-100); MONO # 0.6 x10^3/uL (0.0-1.1); MONO % 12 % (0-9); NEUT # 3.4 x10^3uL (1.8-7.7); NEUT % 61 % (31-73); PLATELET COUNT 175 x10^3/uL (140-400); RED BLOOD COUNT 3.91 x10^6/uL (3.50-5.40); RED CELL DISTRIBUTION WIDTH 13.5 % (11.5-14.5); WHITE BLOOD COUNT 5.6 x10^3/uL (4.0-11.0)
[2018-07-07 05:15] LABS: CALCIUM 8.9 mg/dL (8.5-10.1); CREATININE 1.5 mg/dL (0.6-1.0); POTASSIUM 3.9 mmol/L (3.5-5.1)
[2018-07-07] MEDS: tiZANidine 4 MG TABLET. PO SCH (05:16)
[2018-07-07] MEDS: LEVOTHYROXINE 50 MCG TABLET PO SCH (05:16)
[2018-07-07 07:00] VITALS: BP 107/52
[2018-07-07] MEDS ORDERED: methylPREDNISolone ACETATE 80 MG/ML VIAL. ONE (08:34)
[2018-07-07] MEDS ORDERED: methylPREDNISolone ACETATE 40 MG/ML VIAL. ONE (08:34)
[2018-07-07] MEDS: hydroCHLOROthiazide 25 MG TABLET PO SCH (09:47)
[2018-07-07] MEDS: LACTOBACILLUS RHAMNOSUS GG 1 CAPSULE. PO SCH (09:47)
[2018-07-07] MEDS: FLUoxetine HCL 20 MG CAPSULE PO SCH (09:47)
[2018-07-07] MEDS: predniSONE 10 MG TABLET PO SCH (09:47)
[2018-07-07] MEDS: PANTOPRAZOLE 40 MG TABLET.DR. PO SCH (09:47)
[2018-07-07] MEDS: MORPHINE ER 15 MG TABLET.ER PO SCH (09:47)
[2018-07-07] MEDS: DOCUSATE SODIUM 100 MG CAPSULE. PO SCH (09:47)
[2018-07-07] MEDS: LIDOCAINE (700MG/PATCH) PATCH. TD SCH (09:48)
--- NOTE | 2018-07-07 10:07 | DISCH ---
DISCHARGE WITH HOME HEALTH DISCHARGE INFORMATION: Discharge Date: Jul 04, 2018 Final Diagnosis: Problems Medical Problems: (1) Abdominal pain Status: Acute (2) Flank pain Status: Acute Condition on Discharge: Stable CODE STATUS: Code Status: Full HOME HEALTH: Face to Face: I certify this patient is under my care and that I, or a nurse practitioner or physician's cardiovascular physician assistant working with me, had a face to face encounter that meets the physician face to face encounter requirements with this patient on []. Medical Complications: Other (PPM) Physical Therapy For: Evalulation/Treatment Occupational Therapy For: Evaluation/Treatment Home Health Aide For: Self-care MARKETING PROPOSAL SPECIALIST For: Community Resources POST DISCHARGE ORDERS: Activity Instructions for Disc: Activity as tolerated Weight Bearing Status after Di: As tolerated DIET AFTER DISCHARGE: Cardiac CHECKS AFTER DISCHARGE: Checks after discharge: Check blood press - daily TREATMENT/EQUIPMENT ORDERS: Adaptive Equipment Issued: None CERTIFICATION STATEMENT: Certification Statement: Certification Statement: Based on the above finding, I certify that this patient is confined to the home and needs intermittent nursing home care, physical therapy and/or speech therapy, or continues to need occupational therapy.~ This patient is under my care, and I have initiated the establishment of the plan of care.~ This patient will be followed by myself or a community physician who will periodically review the plan of care. Home Meds Active Scripts Lidocaine (Lidocaine) 1 Each Adh..patch, 1 PATCH TD DAILY for back pain MDD 1, # 14 PATCH Prov:BERNARDO MERRITT MD 07/04/18 Oxycodone Hcl/Acetaminophen (OXYCODONE-ACETAMINOPHEN 10-325) 1 Each Tablet, 1 TAB PO PRN Q4HRS PRN for Severe pain, #20 TAB Prov:BERNARDO MERRITT MD 07/04/18 Tizanidine Hcl (TIZANIDINE HCL) 4 Mg Tablet, 4 MG PO Q8HRS for back apin MDD 1, #30 TAB Prov:BERNARDO MERRITT MD 07/04/18 Oxycodone Hcl/Acetaminophen (OXYCODONE-ACETAMINOPHEN 5-325) 1 Each Tablet, 1 TAB PO PRN Q4HRS PRN for SEVERE PAIN, #30 TAB Prov:DADA GREENWOOD MD 11/13/16 Reported Medications Furosemide (FUROSEMIDE) 40 Mg Tablet, 1 TAB PO DAILY for chf, #30 TAB 5 Refills 06/30/18 Zolpidem Tartrate (AMBIEN) 10 Mg Tablet, 1 TAB PO QHS, #30 TAB 5 Refills 11/10/16 Hydrochlorothiazide (HYDROCHLOROTHIAZIDE TABLET ) 25 Mg Tablet, 25 MG PO 08/05/13 Docusate Sodium (COLACE) 100 Mg Capsule, 100 MG PO 08/05/13 Escitalopram Oxalate (LEXAPRO) 20 Mg Tablet, 20 MG PO 08/05/13 Simvastatin (SIMVASTATIN) 20 Mg Tablet, 20 MG PO 08/05/13 Levothyroxine Sodium (LEVOTHYROXINE SODIUM) 50 Mcg Tablet, 50 MCG PO 08/05/13 Discontinued Reported Medications Warfarin Sodium (WARFARIN SODIUM) 3 Mg Tablet, 1 TAB PO QSA, #30 TAB 5 Refills 11/10/16 Warfarin Sodium (WARFARIN SODIUM) 3 Mg Tablet, 1 TAB PO QTU, #30 TAB 5 Refills 11/10/16 Warfarin Sodium (WARFARIN SODIUM) 2 Mg Tablet, 1 TAB PO QSU, #90 TAB 1 Refill 11/10/16 Warfarin Sodium (WARFARIN SODIUM) 2 Mg Tablet, 2 MG PO QMWF 08/05/13 Aspirin (ASPIR 81) 81 Mg Tablet.dr, 81 MG PO 08/05/13 Amiodarone Hcl (CORDARONE) 200 Mg Tablet, 200 MG PO 08/05/13 ISABEL LANDA III DO Jul 07, 2018 10:07
[2018-07-07 11:00] VITALS: BP 131/73
--- NOTE | 2018-07-07 11:39 | PDOC ---
PROGRESS NOTES Chief Complaint Chief Complaint Rt abdominal Pain, Rt flank pain, numbness and tingling radiating to rt lower extremity History of Present Illness History of Present Illness Pt seen sitting up in chair, she just returned from epidural steroid injection procedure Pt remains in pain, but is ready to be discharged home, she has her at home for assistance and home health has also been arranged for her She expressed concern about her INR and possibility of post operative bleed, her INR is currently at 1.2 and she was switched from warfarin to lovenox. GABRIELA nurse Cardiology/physiatry/ and Pain on board Vitals Vitals Vital Signs Date Time Temp Pulse Resp B/P (MAP) Pulse Ox O2 Delivery O2 Flow Rate FiO2 07/07/18 09:47 20 94 Room Air 07/07/18 07:00 97.9 61 107/52 (70) 97.9 Physical Exam General: Alert, Oriented X3, Cooperative, mild distress Heart: Regular rate, Normal S1, Normal S2 Lungs: Clear Abdomen: Normal bowel sounds, Soft, No tenderness Extremities: No clubbing, No cyanosis, No edema Skin: No breakdown, No significant lesion, Other (LE hyperpigmentations) Labs LABS Laboratory Tests Test 07/07/18 04:30 White Blood Count 5.6 x10^3/uL (4.0-11.0) Red Blood Count 3.91 x10^6/uL (3.50-5.40) Hemoglobin 12.8 g/dL (12.0-15.5) Hematocrit 38.4 % (36.0-47.0) Mean Corpuscular Volume 98 fL (79-100) Mean Corpuscular Hemoglobin 33 pg (25-35) Mean Corpuscular Hemoglobin Concent 33 g/dL (31-37) Red Cell Distribution Width 13.5 % (11.5-14.5) Platelet Count 175 x10^3/uL (140-400) Neutrophils (%) (Auto) 61 % (31-73) Lymphocytes (%) (Auto) 27 % (24-48) Monocytes (%) (Auto) 12 % (0-9) Eosinophils (%) (Auto) 1 % (0-3) Basophils (%) (Auto) 0 % (0-3) Neutrophils # (Auto) 3.4 x10^3uL (1.8-7.7) Lymphocytes # (Auto) 1.5 x10^3/uL (1.0-4.8) Monocytes # (Auto) 0.6 x10^3/uL (0.0-1.1) Eosinophils # (Auto) 0.0 x10^3/uL (0.0-0.7) Basophils # (Auto) 0.0 x10^3/uL (0.0-0.2) Sodium Level 140 mmol/L (136-145) Potassium Level 3.9 mmol/L (3.5-5.1) Chloride Level 103 mmol/L (98-107) Carbon Dioxide Level 30 mmol/L (21-32) Anion Gap 7 (6-14) Blood Urea Nitrogen 32 mg/dL (7-20) Creatinine 1.5 mg/dL (0.6-1.0) Estimated GFR (Cockcroft-Gault) 42.0 Glucose Level 141 mg/dL (70-99) Calcium Level 8.9 mg/dL (8.5-10.1) Review of Systems Review of Systems General: Denies fever, chills, night sweats, fatigue Cardio: Denies chest pain, palpitations Pulm: Denies sob, cough Assessment and Plan Assessmemt and Plan Assessment Spinal Stenosis- s/p epidural steroid inject pod 0 Rt flank pain Abdominal pain Acute Renal Failure Indwelling pacer Anticoagulated- lovenox Plan Probable discharge today, with home health Lovenox Home Health consult Continue Home meds PT/OT DVT prophylaxis Follow up 1 week with primary physician Appreciate Pain management input Appreciate physiatry input Appreciate Cardiology input Comment Review of Relevant I have reviewed the following items sherman (where applicable) has been applied. Labs Laboratory Tests Test 07/06/18 03:55 07/07/18 04:30 Prothrombin Time 15.1 SEC (11.7-14.0) Prothromb Time International Ratio 1.2 (0.8-1.1) White Blood Count 5.6 x10^3/uL (4.0-11.0) Red Blood Count 3.91 x10^6/uL (3.50-5.40) Hemoglobin 12.8 g/dL (12.0-15.5) Hematocrit 38.4 % (36.0-47.0) Mean Corpuscular Volume 98 fL (79-100) Mean Corpuscular Hemoglobin 33 pg (25-35) Mean Corpuscular Hemoglobin Concent 33 g/dL (31-37) Red Cell Distribution Width 13.5 % (11.5-14.5) Platelet Count 175 x10^3/uL (140-400) Neutrophils (%) (Auto) 61 % (31-73) Lymphocytes (%) (Auto) 27 % (24-48) Monocytes (%) (Auto) 12 % (0-9) Eosinophils (%) (Auto) 1 % (0-3) Basophils (%) (Auto) 0 % (0-3) Neutrophils # (Auto) 3.4 x10^3uL (1.8-7.7) Lymphocytes # (Auto) 1.5 x10^3/uL (1.0-4.8) Monocytes # (Auto) 0.6 x10^3/uL (0.0-1.1) Eosinophils # (Auto) 0.0 x10^3/uL (0.0-0.7) Basophils # (Auto) 0.0 x10^3/uL (0.0-0.2) Sodium Level 140 mmol/L (136-145) Potassium Level 3.9 mmol/L (3.5-5.1) Chloride Level 103 mmol/L (98-107) Carbon Dioxide Level 30 mmol/L (21-32) Anion Gap 7 (6-14) Blood Urea Nitrogen 32 mg/dL (7-20) Creatinine 1.5 mg/dL (0.6-1.0) Estimated GFR (Cockcroft-Gault) 42.0 Glucose Level 141 mg/dL (70-99) Calcium Level 8.9 mg/dL (8.5-10.1) Laboratory Tests Test 07/07/18 04:30 White Blood Count 5.6 x10^3/uL (4.0-11.0) Red Blood Count 3.91 x10^6/uL (3.50-5.40) Hemoglobin 12.8 g/dL (12.0-15.5) Hematocrit 38.4 % (36.0-47.0) Mean Corpuscular Volume 98 fL (79-100) Mean Corpuscular Hemoglobin 33 pg (25-35) Mean Corpuscular Hemoglobin Concent 33 g/dL (31-37) Red Cell Distribution Width 13.5 % (11.5-14.5) Platelet Count 175 x10^3/uL (140-400) Neutrophils (%) (Auto) 61 % (31-73) Lymphocytes (%) (Auto) 27 % (24-48) Monocytes (%) (Auto) 12 % (0-9) Eosinophils (%) (Auto) 1 % (0-3) Basophils (%) (Auto) 0 % (0-3) Neutrophils # (Auto) 3.4 x10^3uL (1.8-7.7) Lymphocytes # (Auto) 1.5 x10^3/uL (1.0-4.8) Monocytes # (Auto) 0.6 x10^3/uL (0.0-1.1) Eosinophils # (Auto) 0.0 x10^3/uL (0.0-0.7) Basophils # (Auto) 0.0 x10^3/uL (0.0-0.2) Sodium Level 140 mmol/L (136-145) Potassium Level 3.9 mmol/L (3.5-5.1) Chloride Level 103 mmol/L (98-107) Carbon Dioxide Level 30 mmol/L (21-32) Anion Gap 7 (6-14) Blood Urea Nitrogen 32 mg/dL (7-20) Creatinine 1.5 mg/dL (0.6-1.0) Estimated GFR (Cockcroft-Gault) 42.0 Glucose Level 141 mg/dL (70-99) Calcium Level 8.9 mg/dL (8.5-10.1) Microbiology 06/30/18 Blood Culture - Final, Complete NO GROWTH AFTER 5 DAYS Medications Current Medications Morphine Sulfate (Morphine Sulfate) 4 mg 1X ONCE IV Last administered on at 11:44; Start 06/30/18 at 11:15; Stop 06/30/18 at 11:16; Status DC Sodium Chloride 500 ml @ 500 mls/hr 1X ONCE IV Last administered on at 12:53; Start 06/30/18 at 12:30; Stop 06/30/18 at 13:29; Status DC Morphine Sulfate (Morphine Sulfate) 4 mg 1X ONCE IV Last administered on at 13:54; Start 06/30/18 at 13:45; Stop 06/30/18 at 13:50; Status DC Ondansetron HCl (Zofran) 4 mg PRN Q8HRS PRN IV NAUSEA/VOMITING; Start 06/30/18 at 15:00; Stop 07/01/18 at 14:59; Status DC Morphine Sulfate (Morphine Sulfate) 4 mg PRN Q2HR PRN IV PAIN Last administered on 07/01/18at 14:51; Start 06/30/18 at 15:00; Stop 07/01/18 at 14:59 ; Status DC Sodium Chloride 1,000 ml @ 65 mls/hr [id number] IV Last administered on at 10:25; Start 06/30/18 at 14:46; Stop 07/01/18 at 14:45; Status DC Ceftriaxone Sodium 1 gm/ Dextrose 50 ml @ 100 mls/hr Q24H IV ; Start 06/30/18 at 15:15; Stop 06/30/18 at 15:43; Status DC Acetaminophen (Tylenol) 650 mg PRN Q6HRS PRN PO FEVER; Start 06/30/18 at 15:15 Ondansetron HCl (Zofran) 4 mg PRN Q6HRS PRN IV NAUSEA/VOMITING Last administered on 07/05/18at 21:34; Start 06/30/18 at 15:15 Morphine Sulfate (Morphine Sulfate) 2 mg PRN Q2HR PRN IV MODERATE PAIN Last administered on 07/06/18at 11:34; Start 06/30/18 at 15:15 Tramadol HCl (Ultram) 50 mg PRN Q6HRS PRN PO MILD TO MODERATE PAIN; Start 06/30 at 15:15 Docusate Sodium (Colace) 100 mg PRN DAILY PRN PO CONSTIPATION 1ST CHOICE; Start 06/30/18 at 15:15 Labetalol HCl (Normodyne Iv Push) 20 mg PRN Q2HR PRN IVP HYPERTENSION, SEE COMMENTS; Start 06/30/18 at 15:15 Morphine Sulfate (Morphine Sulfate) 4 mg PRN Q2HR PRN IV SEVERE PAIN Last administered on 07/07/18at 01:29; Start 06/30/18 at 15:15 Enoxaparin Sodium (Lovenox 30mg Syringe) 30 mg Q24H SQ ; Start 06/30/18 at 16:00 ; Stop 06/30/18 at 18:50; Status DC Ceftriaxone Sodium 50 ml @ 100 mls/hr 1X ONCE IV ; Start 06/30/18 at 15:30; Stop 06/30/18 at 15:59; Status Cancel Ceftriaxone Sodium 1 gm/ Dextrose 50 ml @ 100 mls/hr Q24H IV ; Start 06/30/18 at 15:45; Status UNV Ceftriaxone Sodium (Rocephin) 1 gm Q24H IVP Last administered on 07/03/18at 17: 04; Start 06/30/18 at 16:00; Stop 07/04/18 at 10:17; Status DC Enoxaparin Sodium (Lovenox Per Pharmacy Prophylaxis Dosing) 1 each PRN DAILY PRN MC SEE COMMENTS; Start 06/30/18 at 18:45; Status Cancel Docusate Sodium (Colace) 100 mg BID PO Last administered on 07/07/18at 09:47; Start 06/30/18 at 21:00 Furosemide (Lasix) 40 mg DAILY PO ; Start 07/01/18 at 09:00; Stop 07/01/18 at 09 :00; Status DC Oxycodone/ Acetaminophen (Percocet 5/325) 1 tab PRN Q4HRS PRN PO SEVERE PAIN Last administered on 07/03/18at 02:54; Start 06/30/18 at 18:45; Stop 07/03/18 at 08:35; Status DC Zolpidem Tartrate (Ambien) 5 mg QHS PO Last administered on 07/06/18at 19:54; Start 06/30/18 at 21:00 Zolpidem Tartrate (Ambien) 5 mg PRN QHS PRN PO INSOMNIA Last administered on at 19:54; Start 06/30/18 at 19:00 Enoxaparin Sodium (Lovenox 40mg Syringe) 40 mg Q24H SQ ; Start 06/30/18 at 19:00 ; Status Cancel Enoxaparin Sodium (Lovenox Per Pharmacy Treatment Dosing) 1 each PRN DAILY PRN MC SEE COMMENTS; Start 07/01/18 at 09:00 Enoxaparin Sodium (Lovenox 60mg Syringe) 60 mg Q12HR SQ Last administered on at 19:56; Start 07/01/18 at 09:00; Stop 07/06/18 at 11:33; Status DC Info (Anti-Coagulation Monitoring By Pharmacy) 1 each PRN DAILY PRN MC SEE COMMENTS Last administered on 07/02/18at 11:06; Start 06/30/18 at 19:15 Lactobacillus Rhamnosus (Culturelle) 1 cap BID PO Last administered on at 09:47; Start 07/01/18 at 21:00 Hydrochlorothiazide (Hydrodiuril) 25 mg DAILY07 PO Last administered on at 09:47; Start 07/01/18 at 16:00 Non-Formulary Medication (Warfarin Sodium ) 1 tab QSU PO ; Start 07/05/18 at 16 :00; Stop 07/05/18 at 16:00; Status DC Non-Formulary Medication (Warfarin Sodium ) 2 mg QMWF PO ; Start 07/01/18 at 16: 00; Stop 07/01/18 at 16:00; Status DC Non-Formulary Medication (Warfarin Sodium ) 1 tab QSA PO ; Start 07/04/18 at 16 :00; Stop 07/04/18 at 16:00; Status DC Non-Formulary Medication (Warfarin Sodium ) 1 tab QTU PO ; Start 07/07/18 at 16 :00; Stop 07/07/18 at 16:00; Status DC Fluoxetine HCl (PROzac) 20 mg DAILY PO Last administered on 07/07/18at 09:47; Start 07/01/18 at 16:00 Levothyroxine Sodium (Synthroid) 50 mcg DAILY06 PO Last administered on at 05:16; Start 07/02/18 at 06:00 Methylprednisolone Acetate (DEPO-Medrol 40MG VIAL) 40 mg 1X ONCE IM Last administered on 07/01/18at 17:55; Start 07/01/18 at 18:00; Stop 07/01/18 at 18:01 ; Status DC Bupivacaine HCl (Sensorcaine-Mpf 0.25%) 10 ml 1X ONCE IJ Last administered on 07/01/18at 17:54; Start 07/01/18 at 18:00; Stop 07/01/18 at 18:01; Status DC Tizanidine HCl (Zanaflex) 4 mg Q8HRS PO Last administered on 07/07/18at 05:16; Start 07/01/18 at 22:00 Prednisone (Prednisone) 10 mg DAILY PO Last administered on 07/07/18 09:47; Start 07/01/18 at 18:00 Pantoprazole Sodium (Protonix) 40 mg DAILYAC PO Last administered on 09:47; Start 07/01/18 at 18:00 Lidocaine (Lidoderm) 1 patch DAILY TD Last administered on 07/07/18 09:48; Start 07/01/18 at 18:00 Miscellaneous (Lidoderm Patch Removal) 1 ea QHS MC Last administered on at 19:55; Start 07/01/18 at 21:00 Oxycodone/ Acetaminophen (Percocet 10/325) 1 tab PRN Q4HRS PRN PO Severe pain Last administered on 07/07/18 03:53; Start 07/03/18 at 08:45 Diphenhydramine HCl (Benadryl) 25 mg PRN Q6HRS PRN PO ITCHING Last administered on 07/06/18 22:53; Start 07/03/18 at 12:30 Methylprednisolone Acetate (DEPO-Medrol 40MG VIAL) 40 mg 1X ONCE IM ; Start at 09:45; Stop 07/04/18 at 09:46; Status DC Bupivacaine HCl (Sensorcaine-Mpf 0.25%) 10 ml 1X ONCE IJ ; Start 07/04/18 at 09:45; Stop 07/04/18 at 09:46; Status DC Methylprednisolone Acetate (DEPO-Medrol 40MG VIAL) 40 mg 1X ONCE IM ; Start at 09:45; Stop 07/04/18 at 09:46; Status DC Morphine Sulfate (Ms Contin) 15 mg BID PO Last administered on 07/07/18at 09:47 ; Start 07/05/18 at 12:00 Warfarin Sodium (Coumadin Per Pharmacy) 1 each PRN DAILY PRN MC SEE COMMENTS; Start 07/05/18 at 11:15; Stop 07/05/18 at 11:15; Status DC Polyethylene Glycol (miraLAX PACKET) 17 gm PRN DAILY PRN PO CONSTIPATION 2ND CHOICE; Start 07/05/18 at 11:15 Magnesium Hydroxide (Milk Of Magnesia) 2,400 mg PRN DAILY PRN PO CONSTIPATION 3RD CHOICE; Start 07/05/18 at 11:15 Bupivacaine HCl (Sensorcaine-Mpf 0.25%) 10 ml STK-MED ONCE .ROUTE ; Start 07/04 at 10:00; Stop 07/05/18 at 16:05; Status DC Methylprednisolone Acetate (DEPO-Medrol 40MG VIAL) 40 mg STK-MED ONCE .ROUTE ; Start 07/04/18 at 10:00; Stop 07/05/18 at 16:05; Status DC Methylprednisolone Acetate (DEPO-Medrol 40MG VIAL) 40 mg STK-MED ONCE .ROUTE ; Start 07/04/18 at 10:00; Stop 07/05/18 at 16:05; Status DC Active Scripts Active Lidocaine 1 Each Adh..patch 1 Patch TD DAILY MDD 1 Oxycodone-Acetaminophen 10-325 (Oxycodone Hcl/Acetaminophen) 1 Each Tablet 1 Tab PO PRN Q4HRS PRN Tizanidine Hcl 4 Mg Tablet 4 Mg PO Q8HRS MDD 1 Oxycodone-Acetaminophen 5-325 (Oxycodone Hcl/Acetaminophen) 1 Each Tablet 1 Tab PO PRN Q4HRS PRN Reported Furosemide 40 Mg Tablet 1 Tab PO DAILY Ambien (Zolpidem Tartrate) 10 Mg Tablet 1 Tab PO QHS Hydrochlorothiazide Tablet (Hydrochlorothiazide) 25 Mg Tablet 25 Mg PO Colace (Docusate Sodium) 100 Mg Capsule 100 Mg PO Lexapro (Escitalopram Oxalate) 20 Mg Tablet 20 Mg PO Simvastatin 20 Mg Tablet 20 Mg PO Levothyroxine Sodium 50 Mcg Tablet 50 Mcg PO Vitals/I & O Vital Sign - Last 24 Hours 07/06/18 07/06/18 07/06/18 07/06/18 11:34 12:05 12:05 15:00 Temp 97.4 97.4 Pulse 62 Resp 20 20 20 16 B/P (MAP) 137/81 (99) Pulse Ox 93 93 93 96 O2 Delivery Room Air Room Air Room Air 07/06/18 07/06/18 07/06/18 07/06/18 17:31 19:00 19:55 20:00 Temp 98.1 98.1 Pulse 60 Resp 20 18 B/P (MAP) 153/81 (105) Pulse Ox 94 98 O2 Delivery Room Air Room Air Room Air Room Air 07/06/18 07/06/18 07/06/18 07/07/18 22:54 23:00 23:56 01:29 Temp 98.1 98.1 Pulse 59 Resp 18 B/P (MAP) 111/61 (78) Pulse Ox 100 O2 Delivery Room Air Room Air Room Air Room Air 07/07/18 07/07/18 07/07/18 07/07/18 02:10 03:00 03:53 05:15 Temp 97.9 97.9 Pulse 59 Resp 18 B/P (MAP) 123/65 (84) Pulse Ox 97 O2 Delivery Room Air Room Air Room Air Room Air 07/07/18 07/07/18 07/07/18 07:00 07:40 09:47 Temp 97.9 97.9 Pulse 61 Resp 20 20 B/P (MAP) 107/52 (70) Pulse Ox 96 94 O2 Delivery Room Air Room Air Room Air Intake and Output 07/06/18 07/06/18 07/07/18 15:00 23:00 07:00 Intake Total 540 ml 160 ml 300 ml Balance 540 ml 160 ml 300 ml ISABEL LANDA III DO Jul 07, 2018 11:39
[2018-07-07] MEDS ORDERED: NON FORMULARY ITEM (Warfarin Sodium 1 TAB) PO SCH (16:00)
== END 2018-07-07 12:26 | disposition home health service (06) | DRG 309 ==
LOC: ER 10:55 → 5 SOUTH 14:20 → ER 15:30
PROVIDERS: ADMIT Internal Medicine; ATTEND Internal Medicine
PROC: 4B02XTZ Measurement of Cardiac Defibrillator, External Approach (ICD-10-PCS; principal; 2018-07-01)
PROC: 3E0R33Z Introduction of Anti-inflammatory into Spinal Canal, Percutaneous Approach (ICD-10-PCS; 2018-07-04)
DX: T82.110A Breakdown (mechanical) of cardiac electrode, initial encounter (principal); N17.9 Acute kidney failure, unspecified; I42.9 Cardiomyopathy, unspecified; T82.190A Other mechanical complication of cardiac electrode, initial encounter; M48.061 Spinal stenosis, lumbar region without neurogenic claudication; M19.90 Unspecified osteoarthritis, unspecified site; I12.9 Hypertensive chronic kidney disease with stage 1 through stage 4 chronic kidney disease, or unspecified chronic kidney disease; E78.00 Pure hypercholesterolemia, unspecified; E78.5 Hyperlipidemia, unspecified; E89.0 Postprocedural hypothyroidism; I25.10 Atherosclerotic heart disease of native coronary artery without angina pectoris; I34.1 Nonrheumatic mitral (valve) prolapse; N18.3 Chronic kidney disease, stage 3 (moderate); Y71.2 Prosthetic and other implants, materials and accessory cardiovascular devices associated with adverse incidents; G89.29 Other chronic pain; K21.9 Gastro-esophageal reflux disease without esophagitis; Z95.810 Presence of automatic (implantable) cardiac defibrillator; M47.26 Other spondylosis with radiculopathy, lumbar region; Y83.8 Other surgical procedures as the cause of abnormal reaction of the patient, or of later complication, without mention of misadventure at the time of the procedure; Y92.89 Other specified places as the place of occurrence of the external cause; Z79.01 Long term (current) use of anticoagulants; Z86.19 Personal history of other infectious and parasitic diseases; Z88.5 Allergy status to narcotic agent; Z91.041 Radiographic dye allergy status; Z82.49 Family history of ischemic heart disease and other diseases of the circulatory system; Z83.3 Family history of diabetes mellitus; Z90.710 Acquired absence of both cervix and uterus; Z95.1 Presence of aortocoronary bypass graft; Z95.2 Presence of prosthetic heart valve
CPT/HCPCS: 36415; 62323; 71045; 74176; 80048; 80076; 81001; 82565; 83690; 85025; 85049; 85610; 87040; 96374; J0696; J1030; J1040; J1650; J2270; J2405; J3490; J7030; J7040; J7512; Q0163; 97035; 97116; 97140; 97530; 99285-25